=== PATIENT | male | born 1975 | race African-American/Black ===

== ENCOUNTER 2017-12-28 21:15 | Inpatient (IN) | payer MEDICAID, OTHER, SELFPAY ==
[~2017-12-28] VITALS: Ht 167.6 cm; Wt 81.6 kg
[~2017-12-28 21:15] MED LIST: CYCLOBENZAPRINE10 MG ORAL; IBUPROFEN600 MG ORAL; NKM
--- NOTE | 2017-12-28 21:35 | Emergency Room Report ---
History of Present Illness General Chief Complaint: Nausea, Vomiting, and Diarrhea Source: Patient Present Illness HPI Patient presents with abdominal pain which is left lower quadrant vomiting with loose stools. This began at 2 PM today. The pain is 7/10 and constant. He might have vomited little bit of blood. He's been on very unusual diets with fasting. For 3 days he's had weakness and headaches. Today the headache was worse. He feels it in his left eye and has minimal change in vision. His never had a headache like this before. No cough, sore throat. No rashes. Denies alcohol use, stones. Fast was sabianism based. No depression.. Allergies: Coded Allergies: PENICILLINS (Unverified Allergy, Unknown, 06/24/14) Patient History Past Medical History: see triage record Social History: Reports: drug use - THC Social History Narrative Reviewed Nursing Documentation: PMH: Agreed, PSxH: Agreed Nursing Documentation-PMH Past Medical History: No Stated History Review of Systems All Other Systems: negative except mentioned in HPI Physical Exam Vital Signs Date Time Temp Pulse Resp B/P (MAP) Pulse Ox O2 Delivery O2 Flow Rate FiO2 12/28/17 21:18 98.1 58 14 143/86 100 Room Air Sp02 EP Interpretation: reviewed, normal General Appearance: GCS 15, mild distress Head: normocephalic Eyes: bilateral eye PERRL, bilateral eye Scleral Injection ENT: moist mucus membranes Neck: supple Respiratory: lungs clear, normal breath sounds Cardiovascular #1: regular rate, rhythm Cardiovascular #2: 2+ radial (R) Gastrointestinal: normal inspection, normal bowel sounds, no mass, non- distended, no guarding, no rebound, tenderness - Left lower quadrant Genitourinary: no CVA tenderness Musculoskeletal: back normal, gait/station normal, normal range of motion Neurologic: alert, oriented x3, 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 DDx: migraine, dehydration, diverticulitis, gastritis, pancreatitis amongst others. Evaluation with labs, CXR, abd film. Treatment with IV hydration, analgesia and pepcid. Labs with elevated lipase. Rest unremarkable. Improved with treatment, however, still with pain. ROLAND better. Patient admitted medical, Dr. Smith. Laboratory Tests Test 12/28/17 21:29 12/28/17 22:08 White Blood Count 6.2 K/UL (4.8-10.8) Red Blood Count 4.56 M/UL (4.70-6.10) L Hemoglobin 14.6 G/DL (14.2-18.0) Hematocrit 43.6 % (42.0-52.0) Mean Corpuscular Volume 96 FL (80-99) Mean Corpuscular Hemoglobin 31.9 PG (27.0-31.0) H Mean Corpuscular Hemoglobin Concent 33.4 G/DL (32.0-36.0) Red Cell Distribution Width 10.9 % (11.6-14.8) L Platelet Count 247 K/UL (150-450) Mean Platelet Volume 8.3 FL (6.5-10.1) Neutrophils (%) (Auto) 40.9 % (45.0-75.0) L Lymphocytes (%) (Auto) 35.0 % (20.0-45.0) Monocytes (%) (Auto) 10.8 % (1.0-10.0) H Eosinophils (%) (Auto) 11.6 % (0.0-3.0) H Basophils (%) (Auto) 1.7 % (0.0-2.0) Prothrombin Time 10.1 SEC (9.30-11.50) Prothrombin Time INR 1.0 (0.9-1.1) PTT 31 SEC (23-33) Sodium Level 139 MMOL/L (136-145) Potassium Level 3.7 MMOL/L (3.5-5.1) Chloride Level 101 MMOL/L (98-107) Carbon Dioxide Level 31 MMOL/L (21-32) Anion Gap 7 mmol/L (5-15) Blood Urea Nitrogen 9 mg/dL (7-18) Creatinine 1.0 MG/DL (0.55-1.30) Estimate Glomerular Filtration Rate > 60 mL/min (>60) Glucose Level 102 MG/DL (74-106) Calcium Level 9.2 MG/DL (8.5-10.1) Total Bilirubin 0.6 MG/DL (0.2-1.0) Aspartate Amino Transferase (AST) 17 U/L (15-37) Alanine Aminotransferase (ALT) 25 U/L (12-78) Alkaline Phosphatase 86 U/L (46-116) Total Creatine Kinase 133 U/L (26-308) Total Protein 7.8 G/DL (6.4-8.2) Albumin 3.6 G/DL (3.4-5.0) Globulin 4.2 g/dL Albumin/Globulin Ratio 0.9 (1.0-2.7) L Lipase 1031 U/L (73-393) H Urine Color Yellow Urine Appearance Cloudy Urine pH 9 (4.5-8.0) Urine Specific [place] 1.015 (1.005-1.035) Urine Protein Negative (NEGATIVE) Urine Glucose (UA) Negative (NEGATIVE) Urine Ketones Negative (NEGATIVE) Urine Occult Blood Negative (NEGATIVE) Urine Nitrite Negative (NEGATIVE) Urine Bilirubin Negative (NEGATIVE) Urine Urobilinogen 1 MG/DL (0.0-1.0) H Urine Leukocyte Esterase 1+ (NEGATIVE) H Urine RBC 0-2 /HPF (0 - 0) H Urine WBC 0-2 /HPF (0 - 0) Urine Squamous Epithelial Cells None /LPF (NONE/OCC) Urine Amorphous Sediment Many /LPF (NONE) H Urine Bacteria Moderate /HPF (NONE) H Urine Opiates Screen Negative (NEGATIVE) Urine Barbiturates Screen Negative (NEGATIVE) Phencyclidine (PCP) Screen Negative (NEGATIVE) Urine Amphetamines Screen Negative (NEGATIVE) Urine Benzodiazepines Screen Negative (NEGATIVE) Urine Cocaine Screen Negative (NEGATIVE) Urine Marijuana (THC) Screen Positive (NEGATIVE) H Rhythm Strip Diag. Results Rhythm: NSR, no PVC's, no ectopy Chest X-Ray Diagnostic Results Chest X-Ray Diagnostic Results : Chest X-Ray Ordered: Yes # of Views/Limited/Complete: 1 View Indication: Other Interpretation: no consolidation, no effusion, no pneumothorax Impression: No acute disease Electronically Signed by: Petros Cherry MD Other X-Ray Diagnostic Results Other X-Ray Diagnostic Results : X-Ray ordered: abdomen # of Views/Limited Vs Complete: 1 View Indication: Pain Interpretation: nonspecific bowel gas, no sbo, other - no calcifications Impression: Other Electronically Signed by: Petros Cherry MD CT/MRI/US Diagnostic Results CT/MRI/US Diagnostic Results : Imaging Test Ordered: u/s Impression prominent pancreas, slight dilatation of CBD, no stones Last Vital Signs Date Time Temp Pulse Resp B/P (MAP) Pulse Ox O2 Delivery O2 Flow Rate FiO2 12/28/17 21:18 98.1 58 14 143/86 100 Room Air Status: improved Disposition: ADMITTED INPATIENT Condition: Serious Petros Cherry M.D. Dec 28, 2017 21:35
[2017-12-28 21:36] VITALS: BP 134/95
[2017-12-28] MEDS ORDERED: Morphine Sulfate 4mg/ml Inj IVP ONE (21:45)
[2017-12-28 22:03] LABS: BASOPHILS % (AUTO) 1.7 % (0.0-2.0); EOSINOPHILS % (AUTO) 11.6 % (0.0-3.0); HEMATOCRIT 43.6 % (42.0-52.0); HEMOGLOBIN 14.6 G/DL (14.2-18.0); MEAN CORPUSCULAR VOLUME 96 FL (80-99); MONOCYTES % (AUTO) 10.8 % (1.0-10.0); NEUTROPHILS % (AUTO) 40.9 % (45.0-75.0); PLATELET COUNT 247 K/UL (150-450); RED BLOOD COUNT 4.56 M/UL (4.70-6.10); RED CELL DISTRIBUTION WIDTH 10.9 % (11.6-14.8); WHITE BLOOD COUNT 6.2 K/UL (4.8-10.8)
[2017-12-28 22:17] LABS: ANION GAP 7 mmol/L (5-15); BLOOD UREA NITROGEN 9 mg/dL (7-18); CALCIUM 9.2 MG/DL (8.5-10.1); CARBON DIOXIDE 31 MMOL/L (21-32); CHLORIDE 101 MMOL/L (98-107); POTASSIUM 3.7 MMOL/L (3.5-5.1); SODIUM 139 MMOL/L (136-145)
[2017-12-28 22:21] LABS: ALANINE AMINOTRANSFERASE 25 U/L (12-78); ALBUMIN 3.6 G/DL (3.4-5.0); ALBUMIN/GLOBULIN RATIO 0.9 (1.0-2.7); ALKALINE PHOSPHATASE 86 U/L (46-116); ASPARTATE AMINO TRANSFERASE 17 U/L (15-37); BILIRUBIN,TOTAL 0.6 MG/DL (0.2-1.0); CREATINE KINASE 133 U/L (26-308)
[2017-12-28] MEDS ORDERED: HYDROmorphone 1mg/ml Carpuject IVP ONE (22:30)
[2017-12-28 22:34] LABS: APPEARANCE,URINE CLOUDY; BILIRUBIN, URINE NEGATIVE (NEGATIVE); GLUCOSE, URINE (UA) NEGATIVE (NEGATIVE); KETONES,URINE NEGATIVE (NEGATIVE); LEUKOCYTE ESTERASE ,URINE 1+ (NEGATIVE); NITRITE,URINE NEGATIVE (NEGATIVE); PH,URINE 9 (4.5-8.0); PROTEIN,URINE NEGATIVE (NEGATIVE); UROBILINOGEN,URINE 1 MG/DL (0.0-1.0)
[2017-12-28 22:40] LABS: COLOR,URINE YELLOW
[2017-12-28 23:28] VITALS: BP 123/73
[2017-12-29] MEDS ORDERED: HYDROmorphone 1mg/ml Carpuject IVP ONE
[2017-12-29 02:01] VITALS: BP 123/81
[2017-12-29 02:26] VITALS: BP 132/81
[2017-12-29] MEDS ORDERED: Morphine Sulfate 2mg/ml Inj IVP PRN (06:45)
[2017-12-29] MEDS ORDERED: LORazepam Inj 2mg/ml 1ml IV PRN (06:45)
[2017-12-29] MEDS ORDERED: Miralax 17gm pkt ORAL PRN (06:45)
[2017-12-29] MEDS ORDERED: Mylanta II UD 30ml ORAL PRN (06:45)
[2017-12-29] MEDS ORDERED: Nitroglycerin Subl 0.4mg tab SL PRN (06:45)
[2017-12-29] MEDS: D5 1/2NS 1,000 ML IV SCH ×2 (07:29→19:34)
[2017-12-29 07:50] VITALS: BP 134/82
[2017-12-29] MEDS: Pantoprazole Inj IV SCH (09:17)
[2017-12-29] MEDS: Heparin 5000 units/ml inj SUBQ SCH ×2 (09:19→22:27)
--- NOTE | 2017-12-29 09:59 | Diagnostic Imaging Report ---
Indication:Abdominal pain Technique: Grayscale and duplex Doppler imaging of the abdomen performed. Comparison: None Findings: The liver, demonstrated part of the pancreas, gallbladder, aorta and IVC, both kidneys, spleen appear unremarkable. There is no biliary ductal dilatation identified. Doppler evaluation of the main portal vein shows patency. There is no ascites. No hydronephrosis seen. CBD 5.6 mm. Impression: No acute findings.
--- NOTE | 2017-12-29 10:36 | Diagnostic Imaging Report ---
Indication: Abdominal pain Comparison: None Single view of the abdomen obtained Findings: Bowel gas pattern is nonspecific. No mass, ectopic calcifications, or abnormal gas collections are identified. The bones are unremarkable. Impression: No acute findings
--- NOTE | 2017-12-29 10:37 | Diagnostic Imaging Report ---
Indication: Dyspnea Comparison: None A single view chest radiograph was obtained. Findings: Cardiomediastinal appearance is within normal limits for age. Pulmonary vascularity is appropriate. The diaphragmatic contour is smooth and costophrenic angles are sharp. No pleural effusions are identified. The bones are unremarkable. Impression: No acute findings
[2017-12-29] MEDS: HYDROmorphone 1mg/ml Carpuject IVP PRN ×2 (11:08→17:37)
[2017-12-29 12:25] VITALS: BP 143/65
--- NOTE | 2017-12-29 13:20 | GI Initial Consult Note ---
History of Present Illness General Date patient seen: Dec 29, 2017 Time patient seen: 11:00 Reason for Hospitalization: Nausea, Vomiting, and Diarrhea Referring physician: HAILY FARRAR Reason for Consultation: ABDOMINAL PAIN Present Illness HPI Patient presents with abdominal pain which is left lower quadrant vomiting with loose stools. This began at 2 PM today. The pain is 7/10 and constant. He might have vomited little bit of blood. He's been on very unusual diets with fasting. For 3 days he's had weakness and headaches. Today the headache was worse. He feels it in his left eye. His never had a headache like this before. GI consulted for abdominal pain. Pt seen on floor, awake A&Ox4 NAD with no active s/sx of N/V/D. Per patient, he was out shopping when he had a sudden attack of abdominal pain in which he stated he became diaphoretic and weak. The patient had to sit down, drank some water which cause the pain to exacerbate further. Denies any unintentional weight loss or changes in dietary habits. Denies any recent travels. Social drinker, MJ and tobacco user. Patient expresses min relief from morphine. C/o of sharp 7/10 epigastric /LUQ pain. Presents today with lipase over 1000. No known history of endoscopies /colonoscopies. Home Meds Active Scripts Cyclobenzaprine Hcl* (FLEXERIL*) 10 Mg Tablet, 10 MG ORAL TID Y for Muscle Spasm for 5 Days, TAB Prov:ADIA LOPEZ M.D. 12/03/14 Ibuprofen* (MOTRIN*) 600 Mg Tablet, 600 MG ORAL Q8H Y for For Pain, #30 TAB Prov:ADIA LOPEZ M.D. 12/03/14 Reported Medications No Known Medications* (NKM - No Known Medications*) ., 0 ., 0 Refills 12/02/14 Med list reviewed/reconciled: Yes Allergies: Coded Allergies: PENICILLINS (Unverified Allergy, Unknown, 06/24/14) Patient History PMH Narrative Past Medical History: see triage record Social History: Reports: drug use - [facility] Nursing Documentation-[facility] [place] Past Medical History: No Stated History Social History: Reports: smoking, alcohol use, drug use - social Review of Systems All Other Systems: negative except mentioned in HPI Physical Exam Vital Signs Date Time Temp Pulse Resp B/P (MAP) Pulse Ox O2 Delivery O2 Flow Rate FiO2 12/28/17 21:18 98.1 58 14 143/86 100 Room Air Sp02 EP Interpretation: reviewed, normal Labs Laboratory Tests Test 12/28/17 21:29 12/28/17 22:08 White Blood Count 6.2 K/UL (4.8-10.8) Red Blood Count 4.56 M/UL (4.70-6.10) L Hemoglobin 14.6 G/DL (14.2-18.0) Hematocrit 43.6 % (42.0-52.0) Mean Corpuscular Volume 96 FL (80-99) Mean Corpuscular Hemoglobin 31.9 PG (27.0-31.0) H Mean Corpuscular Hemoglobin Concent 33.4 G/DL (32.0-36.0) Red Cell Distribution Width 10.9 % (11.6-14.8) L Platelet Count 247 K/UL (150-450) Mean Platelet Volume 8.3 FL (6.5-10.1) Neutrophils (%) (Auto) 40.9 % (45.0-75.0) L Lymphocytes (%) (Auto) 35.0 % (20.0-45.0) Monocytes (%) (Auto) 10.8 % (1.0-10.0) H Eosinophils (%) (Auto) 11.6 % (0.0-3.0) H Basophils (%) (Auto) 1.7 % (0.0-2.0) Prothrombin Time 10.1 SEC (9.30-11.50) Prothromb Time International Ratio 1.0 (0.9-1.1) Activated Partial Thromboplast Time 31 SEC (23-33) Sodium Level 139 MMOL/L (136-145) Potassium Level 3.7 MMOL/L (3.5-5.1) Chloride Level 101 MMOL/L (98-107) Carbon Dioxide Level 31 MMOL/L (21-32) Anion Gap 7 mmol/L (5-15) Blood Urea Nitrogen 9 mg/dL (7-18) Creatinine 1.0 MG/DL (0.55-1.30) Estimat Glomerular Filtration Rate > 60 mL/min (>60) Glucose Level 102 MG/DL (74-106) Calcium Level 9.2 MG/DL (8.5-10.1) Total Bilirubin 0.6 MG/DL (0.2-1.0) Aspartate Amino Transf (AST/SGOT) 17 U/L (15-37) Alanine Aminotransferase (ALT/SGPT) 25 U/L (12-78) Alkaline Phosphatase 86 U/L (46-116) Total Creatine Kinase 133 U/L (26-308) Total Protein 7.8 G/DL (6.4-8.2) Albumin 3.6 G/DL (3.4-5.0) Globulin 4.2 g/dL Albumin/Globulin Ratio 0.9 (1.0-2.7) L Lipase 1031 U/L (73-393) H Urine Color Yellow Urine Appearance Cloudy Urine pH 9 (4.5-8.0) Urine Specific [place] 1.015 (1.005-1.035) Urine Protein Negative (NEGATIVE) Urine Glucose (UA) Negative (NEGATIVE) Urine Ketones Negative (NEGATIVE) Urine Occult Blood Negative (NEGATIVE) Urine Nitrite Negative (NEGATIVE) Urine Bilirubin Negative (NEGATIVE) Urine Urobilinogen 1 MG/DL (0.0-1.0) H Urine Leukocyte Esterase 1+ (NEGATIVE) H Urine RBC 0-2 /HPF (0 - 0) H Urine WBC 0-2 /HPF (0 - 0) Urine Squamous Epithelial Cells None /LPF (NONE/OCC) Urine Amorphous Sediment Many /LPF (NONE) H Urine Bacteria Moderate /HPF (NONE) H Urine Opiates Screen Negative (NEGATIVE) Urine Barbiturates Screen Negative (NEGATIVE) Phencyclidine (PCP) Screen Negative (NEGATIVE) Urine Amphetamines Screen Negative (NEGATIVE) Urine Benzodiazepines Screen Negative (NEGATIVE) Urine Cocaine Screen Negative (NEGATIVE) Urine Marijuana (THC) Screen Positive (NEGATIVE) H General Appearance: well appearing, no apparent distress, alert Head: normocephalic EENT: PERRL/EOMI, normal ENT inspection Neck: supple Respiratory: normal breath sounds, no respiratory distress Cardiovascular: normal rate Gastrointestinal: normal inspection, non tender, soft, normal bowel sounds, non -distended Rectal: deferred Genitourinary: deferred Musculoskeletal: normal inspection, back normal Neurologic: normal inspection, alert, oriented x3, responsive Psychiatric: normal inspection, judgement/insight normal, memory normal Skin: normal inspection, normal color, no rash, warm/dry, palpation normal, well hydrated Lymphatic: normal inspection, no adenopathy Current Medications Current Medications Medications (Trade) Dose Ordered Sig/Zenobia Route PRN Reason Start Time Stop Time Status Last Admin Dose Admin Acetaminophen (Tylenol) 650 mg Q4H PRN ORAL fever 12/29/17 06:45 01/28/18 06:44 Al Hydroxide/Mg Hydroxide (Mylanta II) 30 ml Q6H PRN ORAL dyspepsia 12/29/17 06:45 01/28/18 06:44 Dextrose (Dextrose 50%) STAT PRN IV Hypoglycemia 12/29/17 06:45 01/28/18 06:44 Dextrose/Sodium Chloride 1,000 ml @ 75 mls/hr [id number] IV 12/29/17 07:00 01/28/18 06:59 12/29/17 07:29 Diphenhydramine HCl (Benadryl) 25 mg Q6H PRN ORAL Itching/Pruritis 12/29/17 06:45 01/28/18 06:44 Heparin Sodium (Porcine) (Heparin 5000 units/ml) 5,000 units EVERY 12 HOURS SUBQ 12/29/17 09:00 01/28/18 08:59 12/29/17 09:19 Hydromorphone HCl (Dilaudid) 1 mg Q4H PRN IVP Moderate to Severe Pain 12/29/17 11:00 01/05/18 10:59 12/29/17 11:08 Lorazepam (Ativan 2mg/ml 1ml) 1 mg Q4H PRN IV agitation 12/29/17 06:45 01/05/18 06:44 Nitroglycerin (Ntg) 0.4 mg Q5M X 3 DOSES PRN SL Prn Chest Pain 12/29/17 06:45 01/28/18 06:44 Ondansetron HCl (Zofran) 4 mg Q6H PRN IVP Nausea & Vomiting 12/29/17 06:45 01/28/18 06:44 Pantoprazole (Protonix) 40 mg DAILY IV 12/29/17 09:00 01/28/18 08:59 12/29/17 09:17 Polyethylene Glycol (Miralax) 17 gm HSPRN PRN ORAL Constipation 12/29/17 06:45 01/28/18 06:44 Promethazine HCl (Phenergan) 25 mg Q8H PRN IV refractory nausea 12/29/17 06:45 01/28/18 06:44 Temazepam (Restoril) 15 mg HSPRN PRN ORAL Insomnia 12/29/17 06:45 01/05/18 06:44 GI: Plan Problems: (1) Pancreatitis Plan abdominal U/S and KUB >> negative symptomatic treatment CLD, adv as tolerated pain mgmt PO/IV hydration fu labs, lipase Discussed with Dr. Mobley. Thank you for this patient referral, we will follow. Radha Coto N.P. Dec 29, 2017 13:20
--- NOTE | 2017-12-29 13:22 | Consultation ---
History of Present Illness General Date patient seen: Dec 29, 2017 Chief Complaint: Nausea, Vomiting, and Diarrhea Reason for Consultation: inpatient management Present Illness HPI 42 year old male presented to [facility] [place] with CC of abdominal pain. His Lipase level were elevated. He denies any etoh use. He is admitted for intractable abdominal pain. Allergies: Coded Allergies: PENICILLINS (Unverified Allergy, Unknown, 06/24/14) Medication History Scheduled No Known Medications* (NKM - No Known Medications*), 0 ., (Reported) Scheduled PRN Cyclobenzaprine Hcl* (Flexeril*), 10 MG ORAL TID PRN for Muscle Spasm Ibuprofen* (Motrin*), 600 MG ORAL Q8H PRN for For Pain Patient History Healthcare decision maker Resuscitation status Advanced Directive on File Review of Systems Constitutional: Reports: no symptoms Eye: Reports: no symptoms ENT: Reports: no symptoms Physical Exam General Appearance: WD/WN, no apparent distress Lines, tubes and drains: peripheral, central line HEENT: normocephalic, atraumatic Neck: non-tender, normal alignment Respiratory/Chest: lungs clear, normal breath sounds Cardiovascular/Chest: normal peripheral pulses, normal rate Abdomen: normal bowel sounds Last 24 Hour Vital Signs Date Time Temp Pulse Resp B/P (MAP) Pulse Ox O2 Delivery O2 Flow Rate FiO2 12/29/17 07:50 97.9 62 18 134/82 99 Room Air 12/29/17 02:26 97.8 53 18 132/81 99 Room Air 12/29/17 02:15 98.2 88 12 123/81 100 Room Air 79 12/29/17 02:01 98.2 79 12 123/81 100 Room Air 12/29/17 00:32 98.2 12/28/17 23:28 98.2 88 26 123/73 98 Room Air 12/28/17 23:03 98.1 12/28/17 22:15 98.1 12/28/17 21:36 98.1 63 19 134/95 100 Room Air 12/28/17 21:18 98.1 58 14 143/86 100 Room Air Intake and Output 12/28/17 12/29/17 19:00 07:00 Intake Total 0 ml Balance 0 ml Intake Oral 0 ml # Voids 2 Laboratory Tests Test 12/28/17 21:29 12/28/17 22:08 White Blood Count 6.2 K/UL (4.8-10.8) Red Blood Count 4.56 M/UL (4.70-6.10) L Hemoglobin 14.6 G/DL (14.2-18.0) Hematocrit 43.6 % (42.0-52.0) Mean Corpuscular Volume 96 FL (80-99) Mean Corpuscular Hemoglobin 31.9 PG (27.0-31.0) H Mean Corpuscular Hemoglobin Concent 33.4 G/DL (32.0-36.0) Red Cell Distribution Width 10.9 % (11.6-14.8) L Platelet Count 247 K/UL (150-450) Mean Platelet Volume 8.3 FL (6.5-10.1) Neutrophils (%) (Auto) 40.9 % (45.0-75.0) L Lymphocytes (%) (Auto) 35.0 % (20.0-45.0) Monocytes (%) (Auto) 10.8 % (1.0-10.0) H Eosinophils (%) (Auto) 11.6 % (0.0-3.0) H Basophils (%) (Auto) 1.7 % (0.0-2.0) Prothrombin Time 10.1 SEC (9.30-11.50) Prothromb Time International Ratio 1.0 (0.9-1.1) Activated Partial Thromboplast Time 31 SEC (23-33) Sodium Level 139 MMOL/L (136-145) Potassium Level 3.7 MMOL/L (3.5-5.1) Chloride Level 101 MMOL/L (98-107) Carbon Dioxide Level 31 MMOL/L (21-32) Anion Gap 7 mmol/L (5-15) Blood Urea Nitrogen 9 mg/dL (7-18) Creatinine 1.0 MG/DL (0.55-1.30) Estimat Glomerular Filtration Rate > 60 mL/min (>60) Glucose Level 102 MG/DL (74-106) Calcium Level 9.2 MG/DL (8.5-10.1) Total Bilirubin 0.6 MG/DL (0.2-1.0) Aspartate Amino Transf (AST/SGOT) 17 U/L (15-37) Alanine Aminotransferase (ALT/SGPT) 25 U/L (12-78) Alkaline Phosphatase 86 U/L (46-116) Total Creatine Kinase 133 U/L (26-308) Total Protein 7.8 G/DL (6.4-8.2) Albumin 3.6 G/DL (3.4-5.0) Globulin 4.2 g/dL Albumin/Globulin Ratio 0.9 (1.0-2.7) L Lipase 1031 U/L (73-393) H Urine Color Yellow Urine Appearance Cloudy Urine pH 9 (4.5-8.0) Urine Specific [place] 1.015 (1.005-1.035) Urine Protein Negative (NEGATIVE) Urine Glucose (UA) Negative (NEGATIVE) Urine Ketones Negative (NEGATIVE) Urine Occult Blood Negative (NEGATIVE) Urine Nitrite Negative (NEGATIVE) Urine Bilirubin Negative (NEGATIVE) Urine Urobilinogen 1 MG/DL (0.0-1.0) H Urine Leukocyte Esterase 1+ (NEGATIVE) H Urine RBC 0-2 /HPF (0 - 0) H Urine WBC 0-2 /HPF (0 - 0) Urine Squamous Epithelial Cells None /LPF (NONE/OCC) Urine Amorphous Sediment Many /LPF (NONE) H Urine Bacteria Moderate /HPF (NONE) H Urine Opiates Screen Negative (NEGATIVE) Urine Barbiturates Screen Negative (NEGATIVE) Phencyclidine (PCP) Screen Negative (NEGATIVE) Urine Amphetamines Screen Negative (NEGATIVE) Urine Benzodiazepines Screen Negative (NEGATIVE) Urine Cocaine Screen Negative (NEGATIVE) Urine Marijuana (THC) Screen Positive (NEGATIVE) H Height (Feet): 5 Height (Inches): 6.00 Weight (Pounds): 180 Medications Current Medications Medications (Trade) Dose Ordered Sig/Zenobia Route PRN Reason Start Time Stop Time Status Last Admin Dose Admin Acetaminophen (Tylenol) 650 mg Q4H PRN ORAL fever 12/29/17 06:45 01/28/18 06:44 Al Hydroxide/Mg Hydroxide (Mylanta II) 30 ml Q6H PRN ORAL dyspepsia 12/29/17 06:45 01/28/18 06:44 Dextrose (Dextrose 50%) STAT PRN IV Hypoglycemia 12/29/17 06:45 01/28/18 06:44 Dextrose/Sodium Chloride 1,000 ml @ 75 mls/hr [id number] IV 12/29/17 07:00 01/28/18 06:59 12/29/17 07:29 Diphenhydramine HCl (Benadryl) 25 mg Q6H PRN ORAL Itching/Pruritis 12/29/17 06:45 01/28/18 06:44 Heparin Sodium (Porcine) (Heparin 5000 units/ml) 5,000 units EVERY 12 HOURS SUBQ 12/29/17 09:00 01/28/18 08:59 12/29/17 09:19 Hydromorphone HCl (Dilaudid) 1 mg Q4H PRN IVP Moderate to Severe Pain 12/29/17 11:00 01/05/18 10:59 12/29/17 11:08 Lorazepam (Ativan 2mg/ml 1ml) 1 mg Q4H PRN IV agitation 12/29/17 06:45 01/05/18 06:44 Nitroglycerin (Ntg) 0.4 mg Q5M X 3 DOSES PRN SL Prn Chest Pain 12/29/17 06:45 01/28/18 06:44 Ondansetron HCl (Zofran) 4 mg Q6H PRN IVP Nausea & Vomiting 12/29/17 06:45 01/28/18 06:44 Pantoprazole (Protonix) 40 mg DAILY IV 12/29/17 09:00 01/28/18 08:59 12/29/17 09:17 Polyethylene Glycol (Miralax) 17 gm HSPRN PRN ORAL Constipation 12/29/17 06:45 01/28/18 06:44 Promethazine HCl (Phenergan) 25 mg Q8H PRN IV refractory nausea 12/29/17 06:45 01/28/18 06:44 Temazepam (Restoril) 15 mg HSPRN PRN ORAL Insomnia 12/29/17 06:45 01/05/18 06:44 Assessment/Plan Problem List: (1) Pancreatitis ICD Codes: K85.90 - Acute pancreatitis without necrosis or infection, unspecified SNOMED: 82393075 Assessment/Plan npo IV fluids GI evaluation symptomatic treatment f/u lipase level. AGGIE ZAMORA Dec 29, 2017 13:21
[2017-12-29 16:36] VITALS: BP 127/79
[2017-12-29 20:00] VITALS: BP 134/77
--- NOTE | 2017-12-29 20:45 | Consultation ---
DATE OF CONSULTATION: 12/29/2017 INFECTIOUS DISEASE CONSULTATION CONSULTING PHYSICIAN: Patricio Reynolds M.D. PRIMARY ATTENDING PHYSICIAN: Dale Smith D.O. REASON FOR CONSULTATION: Pancreatitis. HISTORY OF PRESENT ILLNESS: This is a 42-year-old, male, admitted today complaining of abdominal pain, left lower quadrant pain, loose stool, was found to have elevated lipase. The patient does not have history of alcohol abuse. No fever. No chills. Currently abdominal pain is resolved. PAST MEDICAL HISTORY: ALLERGIES: To penicillin. MEDICATIONS: Hydromorphone, heparin, Protonix, Tylenol, MiraLAX, Zofran, temazepam, diphenhydramine, nitroglycerin, Mylanta, promethazine. SOCIAL HISTORY: Single. Denies alcohol, drug abuse. Smokes weed. REVIEW OF SYSTEMS: Currently have no pain. No fever. No chills. No runny nose. He has occasional coughing. No nausea. No vomiting. Feels hungry. No problem passing urine. PHYSICAL EXAMINATION: VITAL SIGNS: Temperature 97.7, pulse 77, blood pressure 143/65. GENERAL APPEARANCE: The patient is well-developed muscular. HEENT: Head and neck, pink conjunctivae. No oral lesion. HEART: S1 and S2. Regular. LUNGS: Clear. ABDOMEN: Soft, nontender. No mass. EXTREMITIES: No edema. SKIN: Skin tattoos. No ulcer. LABORATORY DATA: Sodium 139, potassium 3.7, chloride 101, bicarb 31, creatinine 1. LFT and bilirubin are normal. Lipase is 1031. WBC 6.2, hemoglobin 14.6, hematocrit 43.6, platelets 247. Chest x-ray was negative. Abdominal ultrasound was negative. IMPRESSION: 1. Acute pancreatitis. 2. Penicillin allergy. RECOMMENDATIONS: 1. Observe off antibiotic. 2. Plan by GI doctor. At the end of my exam, I thank Dr. Dale Smith, for involving me in the care of this patient. Patricio Reynolds M.D. DR: Von JOB#: [id number] CC: CEASAR
--- NOTE | 2017-12-29 21:45 | History and Physical Report ---
DATE OF ADMISSION: 12/29/2017 TIME: 1 p.m. ATTENDING PHYSICIAN: Dale Smith D.O. CONSULTANTS: 1. Jose Mobley M.D. 2. Andrea Buitrago M.D. CHIEF COMPLAINT: Nausea, vomiting, abdominal pain, and pancreatitis. BRIEF HISTORY: The patient is a 42-year-old male who lives at home, presents with one-day history of nausea, vomiting, and abdominal pain, increased. The patient came to [place], diagnosed with pancreatitis, admitted to medical floor for further treatment. Currently, tolerating clear liquids and pain medications has helped his abdominal pain and nausea somewhat subsided. PAST MEDICAL HISTORY: Nothing. PAST SURGICAL HISTORY: None. MEDICATIONS: Dilaudid, heparin, Protonix, Tylenol, MiraLAX, Zofran, Restoril, Benadryl, nitroglycerin, Mylanta, Phenergan with codeine, and Ativan. ALLERGIES: Penicillin. SOCIAL HISTORY: Positive smoke. No alcohol. No intravenous drug abuse. FAMILY HISTORY: Noncontributory. REVIEW OF SYSTEMS: No chest pain. Slight short of breath. Slight nausea and vomiting. No diarrhea. PHYSICAL EXAMINATION: GENERAL: Calm in bed, oriented x3, in no acute distress. VITAL SIGNS: Temperature 97 degrees, pulse 62, respirations 18, and blood pressure 134/82. CARDIOVASCULAR: No murmur. LUNGS: Distant and clear. ABDOMEN: Bowel sounds positive. Slightly tender. No guarding. No rigidity. No rebound. EXTREMITIES: No cyanosis, clubbing or edema. NEUROLOGIC: Cranial nerves II through XII are grossly intact. Deep tendon reflexes 2+/4. Muscle strength is 5/5. LABORATORY AND DIAGNOSTIC DATA: CBC is normal. BMP shows lipase 1031 and albumin 0.9, otherwise, BMP is normal. INR is 1.0 and PTT is 31. Urine toxicology is positive for marijuana. Urinalysis show 1+ leukocyte esterase. ASSESSMENT: 1. Pancreatitis. 2. Urinary tract infection. 3. Nausea, vomiting, and abdominal pain. PLAN: 1. Continue premedications. 2. Liquid diet. 3. Zofran p.r.n. and pain medications p.r.n. 4. CBC, BMP, amylase and lipase in the morning. 5. Antibiotics per Infectious Disease. 6. Dr. Mobley, Dr. Buitrago and Dr. Cornejo to consult. 7. We will continue to follow this patient medically. Dale Smith D.O. DR: ROJAS JOB#: [id number] CC:
[2017-12-30 04:00] VITALS: BP 130/79
[2017-12-30 06:37] LABS: BASOPHILS % (AUTO) 1.1 % (0.0-2.0); EOSINOPHILS % (AUTO) 13.9 % (0.0-3.0); HEMATOCRIT 39.9 % (42.0-52.0); HEMOGLOBIN 13.7 G/DL (14.2-18.0); LYMPHOCYTES % (AUTO) 38.5 % (20.0-45.0); MEAN CORPUSCULAR VOLUME 95 FL (80-99); MONOCYTES % (AUTO) 10.9 % (1.0-10.0); NEUTROPHILS % (AUTO) 35.6 % (45.0-75.0); PLATELET COUNT 231 K/UL (150-450); RED CELL DISTRIBUTION WIDTH 10.8 % (11.6-14.8); WHITE BLOOD COUNT 4.1 K/UL (4.8-10.8)
[2017-12-30] MEDS: HYDROmorphone 1mg/ml Carpuject IVP PRN ×2 (07:08→21:51)
[2017-12-30 07:13] LABS: ALANINE AMINOTRANSFERASE 20 U/L (12-78); ALBUMIN 3.1 G/DL (3.4-5.0); ALBUMIN/GLOBULIN RATIO 0.8 (1.0-2.7); ALKALINE PHOSPHATASE 73 U/L (46-116); AMYLASE 87 U/L (25-115); ANION GAP 8 mmol/L (5-15); ASPARTATE AMINO TRANSFERASE 16 U/L (15-37); BILIRUBIN,TOTAL 0.7 MG/DL (0.2-1.0); BLOOD UREA NITROGEN 4 mg/dL (7-18); CALCIUM 8.7 MG/DL (8.5-10.1); CARBON DIOXIDE 27 MMOL/L (21-32); CHLORIDE 102 MMOL/L (98-107); CREATININE 0.9 MG/DL (0.55-1.30); POTASSIUM 3.4 MMOL/L (3.5-5.1); SODIUM 137 MMOL/L (136-145)
[2017-12-30 08:10] VITALS: BP 136/72
[2017-12-30] MEDS: Pantoprazole Inj IV SCH (08:35)
[2017-12-30] MEDS: Heparin 5000 units/ml inj SUBQ SCH ×2 (08:37→20:47)
[2017-12-30] MEDS ORDERED: Norco 5mg/325mg tab ORAL PRN (09:00)
[2017-12-30] MEDS ORDERED: D5 1/2NS 1000ml IV ONE (11:24)
[2017-12-30 12:00] VITALS: BP 128/79
--- NOTE | 2017-12-30 14:46 | Infectious Diseases Prog Note ---
Assessment/Plan Assessment/Plan A; Acute pancreatitis P; Observe off antibiotic Subjective ROS Limited/Unobtainable: No Constitutional: Reports: no symptoms Gastrointestinal/Abdominal: Reports: other - epigastric pain, started on regular diet Genitourinary: Reports: no symptoms Allergies: Coded Allergies: PENICILLINS (Unverified Allergy, Unknown, 06/24/14) Objective Vital Signs Last 24 Hour Vital Signs Date Time Temp Pulse Resp B/P (MAP) Pulse Ox O2 Delivery O2 Flow Rate FiO2 12/30/17 12:29 98.1 12/30/17 08:10 98.1 59 20 136/72 97 Room Air 12/30/17 04:00 97.8 65 17 130/79 99 Room Air 12/29/17 20:00 98.4 54 17 134/77 100 Room Air 12/29/17 17:37 98.0 12/29/17 16:36 98.0 67 20 127/79 95 Room Air Height (Feet): 5 Height (Inches): 6.00 Weight (Pounds): 180 General Appearance: no acute distress HEENT: mucous membranes moist Respiratory/Chest: lungs clear Cardiovascular: normal rate Abdomen: soft, non tender Extremities: no edema Neurologic/Psychiatric: alert, oriented x 3, responsive Microbiology Date/Time Source Procedure Growth Status 12/28/17 22:08 Urine,Clean Catch Urine Culture - Preliminary NO GROWTH Resulted Laboratory Tests Test 12/30/17 05:10 White Blood Count 4.1 K/UL (4.8-10.8) L Red Blood Count 4.20 M/UL (4.70-6.10) L Hemoglobin 13.7 G/DL (14.2-18.0) L Hematocrit 39.9 % (42.0-52.0) L Mean Corpuscular Volume 95 FL (80-99) Mean Corpuscular Hemoglobin 32.6 PG (27.0-31.0) H Mean Corpuscular Hemoglobin Concent 34.3 G/DL (32.0-36.0) Red Cell Distribution Width 10.8 % (11.6-14.8) L Platelet Count 231 K/UL (150-450) Mean Platelet Volume 7.9 FL (6.5-10.1) Neutrophils (%) (Auto) 35.6 % (45.0-75.0) L Lymphocytes (%) (Auto) 38.5 % (20.0-45.0) Monocytes (%) (Auto) 10.9 % (1.0-10.0) H Eosinophils (%) (Auto) 13.9 % (0.0-3.0) H Basophils (%) (Auto) 1.1 % (0.0-2.0) Activated Partial Thromboplast Time 32 SEC (23-33) Sodium Level 137 MMOL/L (136-145) Potassium Level 3.4 MMOL/L (3.5-5.1) L Chloride Level 102 MMOL/L (98-107) Carbon Dioxide Level 27 MMOL/L (21-32) Anion Gap 8 mmol/L (5-15) Blood Urea Nitrogen 4 mg/dL (7-18) L Creatinine 0.9 MG/DL (0.55-1.30) Estimat Glomerular Filtration Rate > 60 mL/min (>60) Glucose Level 92 MG/DL (74-106) Calcium Level 8.7 MG/DL (8.5-10.1) Total Bilirubin 0.7 MG/DL (0.2-1.0) Aspartate Amino Transf (AST/SGOT) 16 U/L (15-37) Alanine Aminotransferase (ALT/SGPT) 20 U/L (12-78) Alkaline Phosphatase 73 U/L (46-116) Total Protein 7.0 G/DL (6.4-8.2) Albumin 3.1 G/DL (3.4-5.0) L Globulin 3.9 g/dL Albumin/Globulin Ratio 0.8 (1.0-2.7) L Amylase Level 87 U/L (25-115) Lipase 209 U/L (73-393) Current Medications Medications (Trade) Dose Ordered Sig/Zenobia Route PRN Reason Start Time Stop Time Status Last Admin Dose Admin Acetaminophen (Tylenol) 650 mg Q4H PRN ORAL Mild Pain (Pain Scale 1-3)/FEV 12/30/17 10:15 01/29/18 10:14 Acetaminophen/ Hydrocodone Bitart (Thorn[place] 5/325) 1 tab Q6H PRN ORAL Moderate Pain (Pain Scale 4-6) 12/30/17 09:00 01/06/18 08:59 12/30/17 12:29 Al Hydroxide/Mg Hydroxide (Mylanta II) 30 ml Q6H PRN ORAL dyspepsia 12/29/17 06:45 01/28/18 06:44 Dextrose (Dextrose 50%) STAT PRN IV Hypoglycemia 12/29/17 06:45 01/28/18 06:44 Dextrose/Sodium Chloride 1,000 ml @ 75 mls/hr [id number] IV 12/29/17 07:00 01/28/18 06:59 12/29/17 19:34 Diphenhydramine HCl (Benadryl) 25 mg Q6H PRN ORAL Itching/Pruritis 12/29/17 06:45 01/28/18 06:44 Heparin Sodium (Porcine) (Heparin 5000 units/ml) 5,000 units EVERY 12 HOURS SUBQ 12/29/17 09:00 01/28/18 08:59 12/30/17 08:37 Hydromorphone HCl (Dilaudid) 1 mg Q4H PRN IVP Severe Pain (Pain Scale 7-10) 12/30/17 10:15 01/06/18 10:14 Lorazepam (Ativan 2mg/ml 1ml) 1 mg Q4H PRN IV agitation 12/29/17 06:45 01/05/18 06:44 Nitroglycerin (Ntg) 0.4 mg Q5M X 3 DOSES PRN SL Prn Chest Pain 12/29/17 06:45 01/28/18 06:44 Ondansetron HCl (Zofran) 4 mg Q6H PRN IVP Nausea & Vomiting 12/29/17 06:45 01/28/18 06:44 12/30/17 08:35 Pantoprazole (Protonix) 40 mg DAILY IV 12/29/17 09:00 01/28/18 08:59 12/30/17 08:35 Polyethylene Glycol (Miralax) 17 gm HSPRN PRN ORAL Constipation 12/29/17 06:45 01/28/18 06:44 Promethazine HCl (Phenergan) 25 mg Q8H PRN IV refractory nausea 12/29/17 06:45 01/28/18 06:44 Temazepam (Restoril) 15 mg HSPRN PRN ORAL Insomnia 12/29/17 06:45 01/05/18 06:44 SELENA ECHOLS Dec 30, 2017 14:46
--- NOTE | 2017-12-30 14:56 | GI Progress Note ---
Assessment/Plan Problems: (1) Marijuana use ICD Codes: F12.90 - Cannabis use, unspecified, uncomplicated SNOMED: 878121760 (2) Pancreatitis ICD Codes: K85.90 - Acute pancreatitis without necrosis or infection, unspecified SNOMED: 88845778 Qualifiers: Qualified Codes: K85.90 - Acute pancreatitis without necrosis or infection, unspecified Status: stable Status Narrative Discussed with Dr. Mobley. Assessment/Plan abdominal U/S and KUB >> negative utox >> marijuana, possible cause of pancreatitis elevated lipase >> now normal okay for DC per GI standpoint if patient tolerates food symptomatic treatment adv to regular diet pain mgmt PO/IV hydration fu labs Subjective Subjective LUQ pain Objective Last 24 Hour Vital Signs Date Time Temp Pulse Resp B/P (MAP) Pulse Ox O2 Delivery O2 Flow Rate FiO2 12/30/17 12:29 98.1 12/30/17 08:10 98.1 59 20 136/72 97 Room Air 12/30/17 04:00 97.8 65 17 130/79 99 Room Air 12/29/17 20:00 98.4 54 17 134/77 100 Room Air 12/29/17 17:37 98.0 12/29/17 16:36 98.0 67 20 127/79 95 Room Air Intake and Output 12/29/17 12/30/17 19:00 07:00 Intake Total 75 ml 675 ml Balance 75 ml 675 ml IV Total 75 ml 675 ml # Voids 3 4 Laboratory Tests Test 12/30/17 05:10 White Blood Count 4.1 K/UL (4.8-10.8) L Red Blood Count 4.20 M/UL (4.70-6.10) L Hemoglobin 13.7 G/DL (14.2-18.0) L Hematocrit 39.9 % (42.0-52.0) L Mean Corpuscular Volume 95 FL (80-99) Mean Corpuscular Hemoglobin 32.6 PG (27.0-31.0) H Mean Corpuscular Hemoglobin Concent 34.3 G/DL (32.0-36.0) Red Cell Distribution Width 10.8 % (11.6-14.8) L Platelet Count 231 K/UL (150-450) Mean Platelet Volume 7.9 FL (6.5-10.1) Neutrophils (%) (Auto) 35.6 % (45.0-75.0) L Lymphocytes (%) (Auto) 38.5 % (20.0-45.0) Monocytes (%) (Auto) 10.9 % (1.0-10.0) H Eosinophils (%) (Auto) 13.9 % (0.0-3.0) H Basophils (%) (Auto) 1.1 % (0.0-2.0) Activated Partial Thromboplast Time 32 SEC (23-33) Sodium Level 137 MMOL/L (136-145) Potassium Level 3.4 MMOL/L (3.5-5.1) L Chloride Level 102 MMOL/L (98-107) Carbon Dioxide Level 27 MMOL/L (21-32) Anion Gap 8 mmol/L (5-15) Blood Urea Nitrogen 4 mg/dL (7-18) L Creatinine 0.9 MG/DL (0.55-1.30) Estimat Glomerular Filtration Rate > 60 mL/min (>60) Glucose Level 92 MG/DL (74-106) Calcium Level 8.7 MG/DL (8.5-10.1) Total Bilirubin 0.7 MG/DL (0.2-1.0) Aspartate Amino Transf (AST/SGOT) 16 U/L (15-37) Alanine Aminotransferase (ALT/SGPT) 20 U/L (12-78) Alkaline Phosphatase 73 U/L (46-116) Total Protein 7.0 G/DL (6.4-8.2) Albumin 3.1 G/DL (3.4-5.0) L Globulin 3.9 g/dL Albumin/Globulin Ratio 0.8 (1.0-2.7) L Amylase Level 87 U/L (25-115) Lipase 209 U/L (73-393) Height (Feet): 5 Height (Inches): 6.00 Weight (Pounds): 180 General Appearance: WD/WN, no apparent distress, alert Cardiovascular: normal rate Respiratory/Chest: normal breath sounds, no respiratory distress Abdominal Exam: normal bowel sounds, non tender, soft Extremities: normal range of motion, non-tender Radha Coto N.P. Dec 30, 2017 14:56
--- NOTE | 2017-12-30 15:01 | General Progress Note ---
Assessment/Plan Problem List: (1) Dehydration ICD Codes: E86.0 - Dehydration SNOMED: 21603937 (2) Headache ICD Codes: R51 - Headache SNOMED: 68054238 Qualifiers: Qualified Codes: R51 - Headache (3) Pancreatitis ICD Codes: K85.90 - Acute pancreatitis without necrosis or infection, unspecified SNOMED: 01112680 Qualifiers: Qualified Codes: K85.90 - Acute pancreatitis without necrosis or infection, unspecified (4) UTI (urinary tract infection) ICD Codes: N39.0 - Urinary tract infection, site not specified SNOMED: 82650884 (5) Nausea ICD Codes: R11.0 - Nausea SNOMED: 237938247 Status: unchanged Assessment/Plan diet per gi ivf pain control cbc bmp am Subjective Constitutional: Reports: weakness Gastrointestinal/Abdominal: Reports: abdominal pain, nausea Allergies: Coded Allergies: PENICILLINS (Unverified Allergy, Unknown, 06/24/14) All Systems: reviewed and negative except above Objective Last 24 Hour Vital Signs Date Time Temp Pulse Resp B/P (MAP) Pulse Ox O2 Delivery O2 Flow Rate FiO2 12/30/17 12:29 98.1 12/30/17 08:10 98.1 59 20 136/72 97 Room Air 12/30/17 04:00 97.8 65 17 130/79 99 Room Air 12/29/17 20:00 98.4 54 17 134/77 100 Room Air 12/29/17 17:37 98.0 12/29/17 16:36 98.0 67 20 127/79 95 Room Air Intake and Output 12/29/17 12/30/17 19:00 07:00 Intake Total 75 ml 675 ml Balance 75 ml 675 ml IV Total 75 ml 675 ml # Voids 3 4 Laboratory Tests 12/30/17 05:10: White Blood Count 4.1L, Red Blood Count 4.20L, Hemoglobin 13.7L, Hematocrit 39.9L, Mean Corpuscular Volume 95, Mean Corpuscular Hemoglobin 32.6H, Mean Corpuscular Hemoglobin Concent 34.3, Red Cell Distribution Width 10.8L, Platelet Count 231, Mean Platelet Volume 7.9, Neutrophils (%) (Auto) 35.6L, Lymphocytes (%) (Auto) 38.5, Monocytes (%) (Auto) 10.9H, Eosinophils (%) (Auto) 13.9H, Basophils (%) (Auto) 1.1, Activated Partial Thromboplast Time 32, Sodium Level 137, Potassium Level 3.4L, Chloride Level 102, Carbon Dioxide Level 27, Anion Gap 8, Blood Urea Nitrogen 4L, Creatinine 0.9, Estimat Glomerular Filtration Rate > 60, Glucose Level 92, Calcium Level 8.7, Total Bilirubin 0.7, Aspartate Amino Transf (AST/SGOT) 16, Alanine Aminotransferase (ALT/SGPT) 20, Alkaline Phosphatase 73, Total Protein 7.0, Albumin 3.1L, Globulin 3.9, Albumin/ Globulin Ratio 0.8L, Amylase Level 87, Lipase 209 Height (Feet): 5 Height (Inches): 6.00 Weight (Pounds): 180 General Appearance: alert EENT: normal ENT inspection Neck: normal alignment Cardiovascular: normal peripheral pulses, normal rate, regular rhythm Respiratory/Chest: chest wall non-tender, lungs clear, normal breath sounds Abdomen: normal bowel sounds, non tender, soft Extremities: normal inspection Edema: no edema noted Arm (L), no edema noted Arm (R), no edema noted Leg (L), no edema noted Leg (R), no edema noted Pedal (L), no edema noted Pedal (R), no edema noted Generalized Neurologic: responsive, motor weakness Skin: normal pigmentation, warm/dry HAILY FARRAR Dec 30, 2017 15:01
--- NOTE | 2017-12-30 17:33 | Pulmonology Progress Note ---
Assessment/Plan Problems: (1) Pancreatitis Assessment/Plan SYMPTOMATIC TREATMENT iv fluids f/u gi recommendations. Subjective ROS Limited/Unobtainable: No Constitutional: Reports: no symptoms HEENT: Repors: no symptoms Respiratory: Reports: no symptoms Allergies: Coded Allergies: PENICILLINS (Unverified Allergy, Unknown, 06/24/14) Objective Last 24 Hour Vital Signs Date Time Temp Pulse Resp B/P (MAP) Pulse Ox O2 Delivery O2 Flow Rate FiO2 12/30/17 17:00 98.1 12/30/17 13:25 98.1 12/30/17 12:29 98.1 12/30/17 08:10 98.1 59 20 136/72 97 Room Air 12/30/17 04:00 97.8 65 17 130/79 99 Room Air 12/29/17 20:00 98.4 54 17 134/77 100 Room Air 12/29/17 17:37 98.0 Intake and Output 12/29/17 12/30/17 19:00 07:00 Intake Total 75 ml 675 ml Balance 75 ml 675 ml IV Total 75 ml 675 ml # Voids 3 4 General Appearance: WD/WN HEENT: normocephalic, atraumatic Respiratory/Chest: chest wall non-tender, lungs clear Cardiovascular: normal peripheral pulses, normal rate Abdomen: normal bowel sounds, non distended Genitourinary: normal external genitalia Extremities: no clubbing Skin: no ulcers 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 Microbiology Date/Time Source Procedure Growth Status 12/28/17 22:08 Urine,Clean Catch Urine Culture - Preliminary NO GROWTH Resulted Laboratory Tests 12/30/17 05:10: White Blood Count 4.1L, Red Blood Count 4.20L, Hemoglobin 13.7L, Hematocrit 39.9L, Mean Corpuscular Volume 95, Mean Corpuscular Hemoglobin 32.6H, Mean Corpuscular Hemoglobin Concent 34.3, Red Cell Distribution Width 10.8L, Platelet Count 231, Mean Platelet Volume 7.9, Neutrophils (%) (Auto) 35.6L, Lymphocytes (%) (Auto) 38.5, Monocytes (%) (Auto) 10.9H, Eosinophils (%) (Auto) 13.9H, Basophils (%) (Auto) 1.1, Activated Partial Thromboplast Time 32, Sodium Level 137, Potassium Level 3.4L, Chloride Level 102, Carbon Dioxide Level 27, Anion Gap 8, Blood Urea Nitrogen 4L, Creatinine 0.9, Estimat Glomerular Filtration Rate > 60, Glucose Level 92, Calcium Level 8.7, Total Bilirubin 0.7, Aspartate Amino Transf (AST/SGOT) 16, Alanine Aminotransferase (ALT/SGPT) 20, Alkaline Phosphatase 73, Total Protein 7.0, Albumin 3.1L, Globulin 3.9, Albumin/ Globulin Ratio 0.8L, Amylase Level 87, Lipase 209 Current Medications Medications (Trade) Dose Ordered Sig/Zenobia Route PRN Reason Start Time Stop Time Status Last Admin Dose Admin Acetaminophen (Tylenol) 650 mg Q4H PRN ORAL Mild Pain (Pain Scale 1-3)/FEV 12/30/17 10:15 01/29/18 10:14 12/30/17 17:00 Acetaminophen/ Hydrocodone Bitart (Victor 5/325) 1 tab Q6H PRN ORAL Moderate Pain (Pain Scale 4-6) 12/30/17 09:00 01/06/18 08:59 12/30/17 12:29 Al Hydroxide/Mg Hydroxide (Mylanta II) 30 ml Q6H PRN ORAL dyspepsia 12/29/17 06:45 01/28/18 06:44 Dextrose (Dextrose 50%) STAT PRN IV Hypoglycemia 12/29/17 06:45 01/28/18 06:44 Dextrose/Sodium Chloride 1,000 ml @ 75 mls/hr [id number] IV 12/29/17 07:00 01/28/18 06:59 12/29/17 19:34 Diphenhydramine HCl (Benadryl) 25 mg Q6H PRN ORAL Itching/Pruritis 12/29/17 06:45 01/28/18 06:44 Heparin Sodium (Porcine) (Heparin 5000 units/ml) 5,000 units EVERY 12 HOURS SUBQ 12/29/17 09:00 01/28/18 08:59 12/30/17 08:37 Hydromorphone HCl (Dilaudid) 1 mg Q4H PRN IVP Severe Pain (Pain Scale 7-10) 12/30/17 10:15 01/06/18 10:14 Lorazepam (Ativan 2mg/ml 1ml) 1 mg Q4H PRN IV agitation 12/29/17 06:45 01/05/18 06:44 Nitroglycerin (Ntg) 0.4 mg Q5M X 3 DOSES PRN SL Prn Chest Pain 12/29/17 06:45 01/28/18 06:44 Ondansetron HCl (Zofran) 4 mg Q6H PRN IVP Nausea & Vomiting 12/29/17 06:45 01/28/18 06:44 12/30/17 08:35 Pantoprazole (Protonix) 40 mg DAILY IV 12/29/17 09:00 01/28/18 08:59 12/30/17 08:35 Polyethylene Glycol (Miralax) 17 gm HSPRN PRN ORAL Constipation 12/29/17 06:45 01/28/18 06:44 Promethazine HCl (Phenergan) 25 mg Q8H PRN IV refractory nausea 12/29/17 06:45 01/28/18 06:44 Temazepam (Restoril) 15 mg HSPRN PRN ORAL Insomnia 12/29/17 06:45 01/05/18 06:44 AGGIE ZAMORA Dec 30, 2017 17:33
[2017-12-30 20:16] VITALS: BP 148/62
[2017-12-30] MEDS: D5 1/2NS 1,000 ML IV SCH ×2 (21:05→23:00)
[2017-12-31 00:10] VITALS: BP 114/58
[2017-12-31 04:07] VITALS: BP 131/60
[2017-12-31 07:55] VITALS: BP 140/88
[2017-12-31] MEDS: Pantoprazole Inj IV SCH (07:57)
[2017-12-31] MEDS: HYDROmorphone 1mg/ml Carpuject IVP PRN (07:57)
[2017-12-31 07:59] LABS: ANION GAP 3 mmol/L (5-15); BLOOD UREA NITROGEN 6 mg/dL (7-18); CALCIUM 8.9 MG/DL (8.5-10.1); CARBON DIOXIDE 32 MMOL/L (21-32); CHLORIDE 104 MMOL/L (98-107); CREATININE 1.1 MG/DL (0.55-1.30); SODIUM 139 MMOL/L (136-145)
[2017-12-31] MEDS: Heparin 5000 units/ml inj SUBQ SCH ×2 (08:04→21:15)
[2017-12-31 08:22] LABS: BASOPHILS % (AUTO) 1.3 % (0.0-2.0); EOSINOPHILS % (AUTO) 12.9 % (0.0-3.0); HEMATOCRIT 40.2 % (42.0-52.0); HEMOGLOBIN 13.6 G/DL (14.2-18.0); LYMPHOCYTES % (AUTO) 39.5 % (20.0-45.0); MEAN CORPUSCULAR VOLUME 95 FL (80-99); NEUTROPHILS % (AUTO) 33.2 % (45.0-75.0); PLATELET COUNT 249 K/UL (150-450); RED BLOOD COUNT 4.23 M/UL (4.70-6.10); RED CELL DISTRIBUTION WIDTH 10.7 % (11.6-14.8); WHITE BLOOD COUNT 4.6 K/UL (4.8-10.8)
[2017-12-31] MEDS: D5 1/2NS 1,000 ML IV SCH ×2 (09:34→22:47)
--- NOTE | 2017-12-31 11:42 | Diagnostic Imaging Report ---
Indication: Back pain Comparison: None Findings: 3 views of the sacrum and coccyx were obtained. Findings: No acute fracture is identified. The sacroiliac joints are unremarkable. Sacral ala appear symmetric. There is some obscuring due to overlying bowel gas and stool. Impression: No acute injury identified.
--- NOTE | 2017-12-31 11:42 | Diagnostic Imaging Report ---
Indication: Headache. Head trauma Technique: Contiguous 5 mm thick transaxial imaging of the head obtained in a Siemens Sensation [address] scanner. Soft tissue and bone windows generated. Automatic Exposure Control was utilized. Total Dose length Product (DLP): 1414.[address] Dose Index Volume (CTDIvol): 70.38 mGy Comparison: none Findings: The size and configuration of the cortical sulci, basal cisterns, and ventricles are within normal limits for age. There is no mass effect, midline shift, or edema identified. There is no evidence of acute hemorrhage or abnormal intra-axial or extra-axial fluid collections. The bones and soft tissues are unremarkable. Mucosal thickening demonstrated within the paranasal sinuses. Impression: No mass effect, edema or acute bleed. The CT scanner at [facility] is accredited by the [employer] and the scans are performed using dose optimization techniques as appropriate to a performed exam including Automatic Exposure control.
--- NOTE | 2017-12-31 12:06 | GI Progress Note ---
Assessment/Plan Problems: (1) Marijuana use ICD Codes: F12.90 - Cannabis use, unspecified, uncomplicated SNOMED: 949415509 (2) Pancreatitis ICD Codes: K85.90 - Acute pancreatitis without necrosis or infection, unspecified SNOMED: 79472727 Qualifiers: Qualified Codes: K85.90 - Acute pancreatitis without necrosis or infection, unspecified (3) Malingerer ICD Codes: Z76.5 - Malingerer [conscious simulation] SNOMED: 160116266 Status: stable Status Narrative Discussed with Dr. Mobley. Assessment/Plan abdominal U/S and KUB >> negative utox >> marijuana, possible cause of pancreatitis elevated lipase >> now normal ?self induced vomiting okay for DC per GI standpoint symptomatic treatment adv to regular diet pain mgmt PO/IV hydration fu labs Subjective Subjective LUQ pain Objective Last 24 Hour Vital Signs Date Time Temp Pulse Resp B/P (MAP) Pulse Ox O2 Delivery O2 Flow Rate FiO2 12/31/17 08:27 98.6 12/31/17 08:08 Room Air 12/31/17 08:00 Room Air 12/31/17 07:57 98.6 12/31/17 07:55 Room Air 12/31/17 07:55 98.2 100 20 140/88 98 12/31/17 04:07 98.6 59 18 131/60 98 12/31/17 00:10 98.3 53 16 114/58 98 12/30/17 20:16 98.5 58 20 148/62 99 12/30/17 17:00 98.1 12/30/17 13:25 98.1 12/30/17 12:29 98.1 Intake and Output 12/30/17 12/31/17 19:00 07:00 Intake Total 450 ml 585 ml Balance 450 ml 585 ml Intake Oral 360 ml IV Total 450 ml 225 ml # Voids 4 3 Laboratory Tests Test 12/31/17 06:50 White Blood Count 4.6 K/UL (4.8-10.8) L Red Blood Count 4.23 M/UL (4.70-6.10) L Hemoglobin 13.6 G/DL (14.2-18.0) L Hematocrit 40.2 % (42.0-52.0) L Mean Corpuscular Volume 95 FL (80-99) Mean Corpuscular Hemoglobin 32.1 PG (27.0-31.0) H Mean Corpuscular Hemoglobin Concent 33.7 G/DL (32.0-36.0) Red Cell Distribution Width 10.7 % (11.6-14.8) L Platelet Count 249 K/UL (150-450) Mean Platelet Volume 7.5 FL (6.5-10.1) Neutrophils (%) (Auto) 33.2 % (45.0-75.0) L Lymphocytes (%) (Auto) 39.5 % (20.0-45.0) Monocytes (%) (Auto) 13.0 % (1.0-10.0) H Eosinophils (%) (Auto) 12.9 % (0.0-3.0) H Basophils (%) (Auto) 1.3 % (0.0-2.0) Sodium Level 139 MMOL/L (136-145) Potassium Level 4.0 MMOL/L (3.5-5.1) Chloride Level 104 MMOL/L (98-107) Carbon Dioxide Level 32 MMOL/L (21-32) Anion Gap 3 mmol/L (5-15) L Blood Urea Nitrogen 6 mg/dL (7-18) L Creatinine 1.1 MG/DL (0.55-1.30) Estimat Glomerular Filtration Rate > 60 mL/min (>60) Glucose Level 95 MG/DL (74-106) Calcium Level 8.9 MG/DL (8.5-10.1) Height (Feet): 5 Height (Inches): 6.00 Weight (Pounds): 180 General Appearance: WD/WN, no apparent distress, alert Cardiovascular: normal rate Respiratory/Chest: normal breath sounds, no respiratory distress Abdominal Exam: normal bowel sounds, non tender, soft Extremities: normal range of motion, non-tender Radha Coto N.P. Dec 31, 2017 12:06
--- NOTE | 2017-12-31 12:12 | General Progress Note ---
Assessment/Plan Problem List: (1) Dehydration ICD Codes: E86.0 - Dehydration SNOMED: 09107249 (2) Headache ICD Codes: R51 - Headache SNOMED: 81576032 Qualifiers: Qualified Codes: R51 - Headache (3) Pancreatitis ICD Codes: K85.90 - Acute pancreatitis without necrosis or infection, unspecified SNOMED: 28666537 Qualifiers: Qualified Codes: K85.90 - Acute pancreatitis without necrosis or infection, unspecified (4) UTI (urinary tract infection) ICD Codes: N39.0 - Urinary tract infection, site not specified SNOMED: 17901856 (5) Nausea ICD Codes: R11.0 - Nausea SNOMED: 233976128 Status: unchanged Assessment/Plan diet per gi ivf pain control cbc bmp am Subjective Constitutional: Reports: weakness Gastrointestinal/Abdominal: Reports: vomiting Allergies: Coded Allergies: PENICILLINS (Unverified Allergy, Unknown, 06/24/14) All Systems: reviewed and negative except above Objective Last 24 Hour Vital Signs Date Time Temp Pulse Resp B/P (MAP) Pulse Ox O2 Delivery O2 Flow Rate FiO2 12/31/17 08:27 98.6 12/31/17 08:08 Room Air 12/31/17 08:00 Room Air 12/31/17 07:57 98.6 12/31/17 07:55 Room Air 12/31/17 07:55 98.2 100 20 140/88 98 12/31/17 04:07 98.6 59 18 131/60 98 12/31/17 00:10 98.3 53 16 114/58 98 12/30/17 20:16 98.5 58 20 148/62 99 12/30/17 17:00 98.1 12/30/17 13:25 98.1 12/30/17 12:29 98.1 Intake and Output 12/30/17 12/31/17 19:00 07:00 Intake Total 450 ml 585 ml Balance 450 ml 585 ml Intake Oral 360 ml IV Total 450 ml 225 ml # Voids 4 3 Laboratory Tests 12/31/17 06:50: White Blood Count 4.6L, Red Blood Count 4.23L, Hemoglobin 13.6L, Hematocrit 40.2L, Mean Corpuscular Volume 95, Mean Corpuscular Hemoglobin 32.1H, Mean Corpuscular Hemoglobin Concent 33.7, Red Cell Distribution Width 10.7L, Platelet Count 249, Mean Platelet Volume 7.5, Neutrophils (%) (Auto) 33.2L, Lymphocytes (%) (Auto) 39.5, Monocytes (%) (Auto) 13.0H, Eosinophils (%) (Auto) 12.9H, Basophils (%) (Auto) 1.3, Sodium Level 139, Potassium Level 4.0, Chloride Level 104, Carbon Dioxide Level 32, Anion Gap 3L, Blood Urea Nitrogen 6L, Creatinine 1.1, Estimat Glomerular Filtration Rate > 60, Glucose Level 95, Calcium Level 8.9 Height (Feet): 5 Height (Inches): 6.00 Weight (Pounds): 180 General Appearance: lethargic EENT: normal ENT inspection Neck: non-tender Cardiovascular: normal peripheral pulses, normal rate, regular rhythm Respiratory/Chest: chest wall non-tender, lungs clear, normal breath sounds Abdomen: normal bowel sounds, soft Extremities: normal inspection Edema: no edema noted Arm (L), no edema noted Arm (R), no edema noted Leg (L), no edema noted Leg (R), no edema noted Pedal (L), no edema noted Pedal (R), no edema noted Generalized Neurologic: responsive, motor weakness Skin: normal pigmentation, warm/dry HAILY FARRAR Dec 31, 2017 12:12
[2017-12-31 13:06] VITALS: BP 128/66
[2017-12-31 16:47] VITALS: BP 137/79
[2017-12-31 20:00] VITALS: BP 139/84
[2018-01-01] VITALS: BP 124/74
[2018-01-01 04:00] VITALS: BP 123/82
[2018-01-01 07:31] LABS: BASOPHILS % (AUTO) 1.8 % (0.0-2.0); EOSINOPHILS % (AUTO) 14.7 % (0.0-3.0); HEMATOCRIT 42.4 % (42.0-52.0); HEMOGLOBIN 14.3 G/DL (14.2-18.0); LYMPHOCYTES % (AUTO) 35.6 % (20.0-45.0); MEAN CORPUSCULAR VOLUME 95 FL (80-99); MONOCYTES % (AUTO) 11.4 % (1.0-10.0); NEUTROPHILS % (AUTO) 36.5 % (45.0-75.0); PLATELET COUNT 292 K/UL (150-450); RED BLOOD COUNT 4.47 M/UL (4.70-6.10); RED CELL DISTRIBUTION WIDTH 10.6 % (11.6-14.8); WHITE BLOOD COUNT 5.6 K/UL (4.8-10.8)
[2018-01-01 07:45] LABS: ANION GAP 6 mmol/L (5-15); BLOOD UREA NITROGEN 7 mg/dL (7-18); CALCIUM 9.1 MG/DL (8.5-10.1); CARBON DIOXIDE 30 MMOL/L (21-32); CHLORIDE 101 MMOL/L (98-107); POTASSIUM 3.3 MMOL/L (3.5-5.1); SODIUM 137 MMOL/L (136-145)
[2018-01-01 08:00] VITALS: BP 142/87
--- NOTE | 2018-01-01 08:29 | Pulmonology Progress Note ---
Assessment/Plan Assessment/Plan ASSESSMENT Pancreatitis dehydration malingerer marijuana user hypokalemia PLAN OF CARE [facility] floor IVF GI follows lipase down to normal urine cx negative urine tox screen + marijuana, poss cause of pancreatitis ID follows observe off abx Abdominal US, KUB negative symptomatic treatment diet advanced as tolerated, -howard to tolerate pain, n/v/ a/emetic prn Pain management DVT GI prophylaxis ? fall CT head and X ray sacral coccyx -negative dc plan for this am replace K prro to dc case discussed and evaluated by supervising physician Subjective Allergies: Coded Allergies: PENICILLINS (Unverified Allergy, Unknown, 06/24/14) Subjective no abdominal pain, no n/v/ tolerated diet labs and VSS K-3.3 Objective Last 24 Hour Vital Signs Date Time Temp Pulse Resp B/P (MAP) Pulse Ox O2 Delivery O2 Flow Rate FiO2 01/01/18 04:00 98.2 70 17 123/82 100 01/01/18 04:00 Room Air 01/01/18 00:00 98.0 66 18 124/74 98 01/01/18 00:00 Room Air 12/31/17 20:00 98.5 65 18 139/84 99 12/31/17 20:00 Room Air 12/31/17 16:47 98.5 59 21 137/79 99 Room Air 59 12/31/17 13:06 98.3 55 20 128/66 98 12/31/17 13:05 Room Air Intake and Output 12/31/17 01/01/18 19:00 07:00 Intake Total 1102.5 ml 875 ml Output Total 800 ml 425 ml Balance 302.5 ml 450 ml Intake Oral 240 ml IV Total 862.5 ml 875 ml Output Urine Total 800 ml 425 ml # Voids 2 4 # Bowel Movements 1 General Appearance: no acute distress HEENT: normocephalic, atraumatic, anicteric, mucous membranes moist Respiratory/Chest: lungs clear, no respiratory distress, no accessory muscle use Cardiovascular: normal rate, regular rhythm, no JVD Abdomen: normal bowel sounds, soft, non tender, non distended Extremities: no edema, pedal pulses normal Skin: other - multiple tattoos all over the body Neurologic/Psychiatric: alert, oriented x 3, responsive Musculoskeletal: normal muscle bulk Laboratory Tests 01/01/18 07:05: White Blood Count 5.6, Red Blood Count 4.47L, Hemoglobin 14.3, Hematocrit 42.4, Mean Corpuscular Volume 95, Mean Corpuscular Hemoglobin 32.0H, Mean Corpuscular Hemoglobin Concent 33.8, Red Cell Distribution Width 10.6L, Platelet Count 292, Mean Platelet Volume 7.3, Neutrophils (%) (Auto) 36.5L, Lymphocytes (%) (Auto) 35.6, Monocytes (%) (Auto) 11.4H, Eosinophils (%) (Auto) 14.7H, Basophils (%) ( Auto) 1.8, Sodium Level 137, Potassium Level 3.3L, Chloride Level 101, Carbon Dioxide Level 30, Anion Gap 6, Blood Urea Nitrogen 7, Creatinine 1.0, Estimat Glomerular Filtration Rate > 60, Glucose Level 105, Calcium Level 9.1 Current Medications Medications (Trade) Dose Ordered Sig/[place] Route PRN Reason Start Time Stop Time Status Last Admin Dose Admin Acetaminophen (Tylenol) 650 mg Q4H PRN ORAL Mild Pain (Pain Scale 1-3)/FEV 12/30/17 10:15 01/29/18 10:14 12/30/17 17:00 Acetaminophen/ Hydrocodone Bitart ([place] 5/325) 1 tab Q6H PRN ORAL Moderate Pain (Pain Scale 4-6) 12/30/17 09:00 01/06/18 08:59 12/30/17 12:29 Al Hydroxide/Mg Hydroxide (Mylanta II) 30 ml Q6H PRN ORAL dyspepsia 12/29/17 06:45 01/28/18 06:44 Dextrose (Dextrose 50%) STAT PRN IV Hypoglycemia 12/29/17 06:45 01/28/18 06:44 Dextrose/Sodium Chloride 1,000 ml @ 75 mls/hr [id number] IV 12/29/17 07:00 01/28/18 06:59 12/31/17 22:47 Diphenhydramine HCl (Benadryl) 25 mg Q6H PRN ORAL Itching/Pruritis 12/29/17 06:45 01/28/18 06:44 Heparin Sodium (Porcine) (Heparin 5000 units/ml) 5,000 units EVERY 12 HOURS SUBQ 12/29/17 09:00 01/28/18 08:59 12/31/17 21:15 Hydromorphone HCl (Dilaudid) 1 mg Q4H PRN IVP Severe Pain (Pain Scale 7-10) 12/31/17 15:00 01/07/18 14:59 Lorazepam (Ativan 2mg/ml 1ml) 1 mg Q4H PRN IV agitation 12/29/17 06:45 01/05/18 06:44 Nitroglycerin (Ntg) 0.4 mg Q5M X 3 DOSES PRN SL Prn Chest Pain 12/29/17 06:45 01/28/18 06:44 Ondansetron HCl (Zofran) 4 mg Q6H PRN IVP Nausea & Vomiting 12/29/17 06:45 01/28/18 06:44 12/30/17 18:38 Pantoprazole (Protonix) 40 mg DAILY IV 12/29/17 09:00 01/28/18 08:59 12/31/17 07:57 Polyethylene Glycol (Miralax) 17 gm HSPRN PRN ORAL Constipation 12/29/17 06:45 01/28/18 06:44 Promethazine HCl (Phenergan) 25 mg Q8H PRN IV refractory nausea 12/29/17 06:45 01/28/18 06:44 12/31/17 07:50 Temazepam (Restoril) 15 mg HSPRN PRN ORAL Insomnia 12/29/17 06:45 01/05/18 06:44 [facility]uckerBert[facility]af[facility] HospitalFranca Erazo NP Jan 01, 2018 08:29
[2018-01-01] MEDS: Pantoprazole Inj IV SCH (08:43)
[2018-01-01] MEDS: Heparin 5000 units/ml inj SUBQ SCH (08:44)
[2018-01-01] MEDS ORDERED: D5 1/2NS 1000ml IV ONE (09:29)
--- NOTE | 2018-01-01 10:31 | GI Progress Note ---
Assessment/Plan Problems: (1) Marijuana use ICD Codes: F12.90 - Cannabis use, unspecified, uncomplicated SNOMED: 790801918 (2) Pancreatitis ICD Codes: K85.90 - Acute pancreatitis without necrosis or infection, unspecified SNOMED: 61961702 Qualifiers: Qualified Codes: K85.90 - Acute pancreatitis without necrosis or infection, unspecified (3) Malingerer ICD Codes: Z76.5 - Malingerer [conscious simulation] SNOMED: 018828486 Status: stable Status Narrative Discussed with Dr. Mobley. Assessment/Plan abdominal U/S and KUB >> negative utox >> marijuana, possible cause of pancreatitis elevated lipase >> now normal ?self induced vomiting okay for DC per GI standpoint symptomatic treatment adv to regular diet pain mgmt PO/IV hydration fu labs Subjective Subjective LUQ pain Objective Last 24 Hour Vital Signs Date Time Temp Pulse Resp B/P (MAP) Pulse Ox O2 Delivery O2 Flow Rate FiO2 01/01/18 08:00 98.4 91 20 142/87 97 01/01/18 04:00 98.2 70 17 123/82 100 01/01/18 04:00 Room Air 01/01/18 00:00 98.0 66 18 124/74 98 01/01/18 00:00 Room Air 12/31/17 20:00 98.5 65 18 139/84 99 12/31/17 20:00 Room Air 12/31/17 16:47 98.5 59 21 137/79 99 Room Air 59 12/31/17 13:06 98.3 55 20 128/66 98 12/31/17 13:05 Room Air Intake and Output 12/31/17 01/01/18 19:00 07:00 Intake Total 1102.5 ml 875 ml Output Total 800 ml 425 ml Balance 302.5 ml 450 ml Intake Oral 240 ml IV Total 862.5 ml 875 ml Output Urine Total 800 ml 425 ml # Voids 2 4 # Bowel Movements 1 Laboratory Tests Test 01/01/18 07:05 White Blood Count 5.6 K/UL (4.8-10.8) Red Blood Count 4.47 M/UL (4.70-6.10) L Hemoglobin 14.3 G/DL (14.2-18.0) Hematocrit 42.4 % (42.0-52.0) Mean Corpuscular Volume 95 FL (80-99) Mean Corpuscular Hemoglobin 32.0 PG (27.0-31.0) H Mean Corpuscular Hemoglobin Concent 33.8 G/DL (32.0-36.0) Red Cell Distribution Width 10.6 % (11.6-14.8) L Platelet Count 292 K/UL (150-450) Mean Platelet Volume 7.3 FL (6.5-10.1) Neutrophils (%) (Auto) 36.5 % (45.0-75.0) L Lymphocytes (%) (Auto) 35.6 % (20.0-45.0) Monocytes (%) (Auto) 11.4 % (1.0-10.0) H Eosinophils (%) (Auto) 14.7 % (0.0-3.0) H Basophils (%) (Auto) 1.8 % (0.0-2.0) Sodium Level 137 MMOL/L (136-145) Potassium Level 3.3 MMOL/L (3.5-5.1) L Chloride Level 101 MMOL/L (98-107) Carbon Dioxide Level 30 MMOL/L (21-32) Anion Gap 6 mmol/L (5-15) Blood Urea Nitrogen 7 mg/dL (7-18) Creatinine 1.0 MG/DL (0.55-1.30) Estimat Glomerular Filtration Rate > 60 mL/min (>60) Glucose Level 105 MG/DL (74-106) Calcium Level 9.1 MG/DL (8.5-10.1) Height (Feet): 5 Height (Inches): 6.00 Weight (Pounds): 180 General Appearance: WD/WN, no apparent distress, alert Cardiovascular: normal rate Respiratory/Chest: normal breath sounds, no respiratory distress Abdominal Exam: normal bowel sounds, non tender, soft Extremities: normal range of motion, non-tender Radha Coto N.P. Jan 01, 2018 10:30
--- NOTE | 2018-01-02 10:48 | Discharge Summary ---
Discharge Summary Hospital Course Date of Admission Dec 29, 2017 at 00:17 Date of Discharge Jan 01, 2018 at 09:30 Admitting Diagnosis pancreatitis HPI Herrera Amaya is a 42 year old male who was admitted on Dec 29, 2017 at 00:17 for Pancreatitis Hospital Course [id number] Discharge Discharge Disposition Patient was discharged to Home (01) Discharge Diagnoses: Aggie Almaraz NP Jan 02, 2018 10:48
--- NOTE | 2018-01-02 22:45 | Discharge Summary 2 SIG ---
DATE OF ADMISSION: 12/29/2017 DATE OF DISCHARGE: 01/01/2018 CONSULTANTS: 1. Jose Mobley M.D. 2. Andrea Buitrago M.D. 3. Patricio Reynolds M.D. BRIEF HOSPITAL COURSE: The patient is a 42-year-old male, who lives at home, presented with one-day history of nausea, vomiting, and abdominal pain. He presented to [facility]. On evaluation, he was noted to have elevated lipase 1031, rest of the blood work was unremarkable. He was given IV hydration, analgesia, and Pepcid. He was admitted for acute pancreatitis. He was observed off antibiotic treatment. He was initially placed on NPO. Abdominal ultrasound showed no acute findings. KUB was likewise unremarkable. He was started on clear liquid diet. Urine toxicology showed marijuana. Lipase eventually normalized. Diet was advanced. He had episodes of vomiting, possible self induced. He was given potassium replacement. X-ray of the sacral and coccyx were negative and head CT showed no acute bleed. He was eventually discharged home. FINAL DIAGNOSES: 1. Acute pancreatitis. 2. Dehydration. 3. Hypokalemia. 4. Marijuana use. 5. Malingerer. 6. Headaches. DISPOSITION: The patient was discharged home. DISCHARGE INSTRUCTIONS: Follow up with PCP. He was advised against marijuana use. Dale Smith D.O. I have been assigned to dictate discharge summary on this account and I was not involved in the patient's management. Aggie Almaraz N.P. DR: EUNICE JOB#: [id number] CC: CEASAR
== END 2018-01-01 09:30 | disposition home or self-care (01) | DRG 282 ==
LOC: EMR 21:49 → 3E 12-29 00:17 → EDBEDREQ 12-29 00:41 → 3E 12-29 03:19
DX: K85.90 Acute pancreatitis without necrosis or infection, unspecified (principal); N39.0 Urinary tract infection, site not specified; E86.0 Dehydration; E87.6 Hypokalemia; F12.90 Cannabis use, unspecified, uncomplicated; Z76.5 Malingerer [conscious simulation]; R51 Headache; Z88.0 Allergy status to penicillin
CPT/HCPCS: 36415; 70450; 71045; 72220; 74018; 76700; 80048; 80053; 80307; 81003; 82150; 82550; 83690; 85025; 85610; 85730; 87086; 99285; J2405

== ENCOUNTER 2018-07-28 22:19 | Emergency (ER) | payer OTHER ==
[~2018-07-28] VITALS: Ht 170.2 cm; Wt 81.6 kg
[2018-07-28 22:26] VITALS: BP 113/72
[2018-07-28] MEDS ORDERED: Lidocaine 1% 10mg/ml/Epi 0.005mg/ml 30ml vial INJ ONE ×2 (23:11→23:15)
[2018-07-28] MEDS ORDERED: DOXYCYCLINE MO100 MG ORAL (23:40)
[2018-07-28] MEDS ORDERED: IBUPROFEN600 MG ORAL (23:40)
--- NOTE | 2018-07-28 23:50 | Emergency Room Report ---
History of Present Illness General Chief Complaint: Skin Rash/Abscess Source: Patient Present Illness HPI Patient is a 43-year-old male who presented after increased swelling and skin rash. Patient gradual onset of symptoms. Patient reports having increased pain to his chest for approximately 4 days. The patient had noticed initially a small this nodule. This had increased in size. He denies any fever or chills. He had not been taking any antibiotics recently. He is penicillin allergic. Allergies: Coded Allergies: PENICILLINS (Unverified Allergy, Unknown, 06/24/14) Patient History Past Medical History: see triage record Reviewed Nursing Documentation: PMH: Agreed; PSxH: Agreed Nursing Documentation-PMH Hx Cardiac Problems: No Hx Cancer: No Hx Gastrointestinal Problems: Yes - Pancreatitis Hx Neurological Problems: No Review of Systems All Other Systems: negative except mentioned in HPI Physical Exam Vital Signs Date Time Temp Pulse Resp B/P (MAP) Pulse Ox O2 Delivery O2 Flow Rate FiO2 07/28/18 22:26 97.9 69 20 113/72 96 Room Air 97.9 General Appearance: well appearing, no apparent distress, alert, GCS 15 Head: normocephalic, atraumatic ENT: hearing grossly normal, normal voice Neck: full range of motion, supple Respiratory: no respiratory distress, speaking full sentences Musculoskeletal: no calf tenderness Neurologic: normal inspection, alert, oriented x3, responsive, union representative III-XII nml as tested, normal gait Psychiatric: normal inspection, mood/affect normal Skin: other - fluctuance to chest wall, Procedures Incision and Drainage Incision and Drainage : Consent: Written Site: chest wall Blade Size: 11 I & D Procedure: betadine prep, sterile drapes applied Wound Location: chest Wound's Depth, Shape: superficial Wound Length (cm): 0 Wound Explored: clean Anesthesia: Lidocaine w/ Epi Volume Anesthetic (ccs): 4 Patient Tolerated: Well Complications: None Medical Decision Making Diagnostic Impression: Primary Impression: Abscess ER Course Patient presented for skin rash. Differential diagnosis included was not limited to abscess, cellulitis, folliculitis. The patient had apparent abscess. Patient was consented for incision and drainage. Abscess was drained with the large amount purulent material. Patient was given prescription for doxycycline.The patient is advised to follow up with primary care doctor in 1- 2 days for wound check.. Patient is advised to return if any worsening condition or if any changes in status that are concerning. This report is dictated with Dragon load test mechanic software which may occasionally lead to discrepancies related to use of this software. Last Vital Signs Date Time Temp Pulse Resp B/P (MAP) Pulse Ox O2 Delivery O2 Flow Rate FiO2 07/28/18 22:26 208.2 78 20 113/72 96 Room Air 208.2 Status: improved Disposition: HOME, SELF-CARE Condition: Stable Scripts Ibuprofen* (MOTRIN*) 600 Mg Tablet 600 MG ORAL Q8H PRN for For Pain, #30 TAB 0 Refills Prov: Manpreet Cameron MD 07/28/18 Doxycycline Monohydrate* (DOXYCYCLINE MONOHYDRATE*) 100 Mg Capsule 100 MG ORAL TWICE A DAY, #14 CAP 0 Refills Prov: Manpreet Cameron MD 07/28/18 Patient Instructions: Manpreet Guido MD Jul 28, 2018 23:50
[2018-07-28 23:55] VITALS: BP 124/72
== END 2018-07-28 23:55 | disposition home or self-care (01) ==
LOC: EMR 23:00
DX: L02.213 Cutaneous abscess of chest wall (principal); Z88.0 Allergy status to penicillin
CPT/HCPCS: 10060; 99283

== ENCOUNTER 2019-05-27 12:46 | Emergency (ER) | payer OTHER ==
[~2019-05-27] VITALS: Ht 172.7 cm; Wt 84.4 kg
[~2019-05-27 12:46] MED LIST changes: +DOXYCYCLINE MO100 MG ORAL
[2019-05-27 13:02] VITALS: BP 134/82
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
[2019-05-27] MEDS ORDERED: Isovue-300 100ml vial INJ PRN (13:30)
[2019-05-27] MEDS ORDERED: Ketorolac 30mg Inj IV ONE (13:30)
[2019-05-27 13:49] LABS: BASOPHILS % (AUTO) 1.2 % (0.0-2.0); EOSINOPHILS % (AUTO) 1.9 % (0.0-3.0); HEMATOCRIT 42.4 % (42.0-52.0); HEMOGLOBIN 13.9 G/DL (14.2-18.0); LYMPHOCYTES % (AUTO) 16.3 % (20.0-45.0); MEAN CORPUSCULAR VOLUME 96 FL (80-99); MONOCYTES % (AUTO) 8.6 % (1.0-10.0); PLATELET COUNT 194 K/UL (150-450); RED BLOOD COUNT 4.43 M/UL (4.70-6.10); RED CELL DISTRIBUTION WIDTH 10.9 % (11.6-14.8); WHITE BLOOD COUNT 7.1 K/UL (4.8-10.8)
[2019-05-27 14:04] LABS: ANION GAP 8 mmol/L (5-15); BLOOD UREA NITROGEN 9 mg/dL (7-18); CALCIUM 9.4 MG/DL (8.5-10.1); CARBON DIOXIDE 26 MMOL/L (21-32); CHLORIDE 105 MMOL/L (98-107); POTASSIUM 3.8 MMOL/L (3.5-5.1); SODIUM 139 MMOL/L (136-145)
[2019-05-27 14:08] LABS: ALANINE AMINOTRANSFERASE 26 U/L (12-78); ALBUMIN 3.8 G/DL (3.4-5.0); ALKALINE PHOSPHATASE 80 U/L (46-116); ASPARTATE AMINO TRANSFERASE 24 U/L (15-37); BILIRUBIN,TOTAL 0.6 MG/DL (0.2-1.0)
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
[2019-05-27 15:10] VITALS: BP 129/70
--- NOTE | 2019-05-27 15:11 | Diagnostic Imaging Report ---
Indications: Left hip pain Findings: Two views of the left hip were obtained. No acute fracture is demonstrated. Alignment of the hip is within normal limits. Soft tissues are unremarkable. Impression: Negative for acute injury.
--- NOTE | 2019-05-27 15:12 | Diagnostic Imaging Report ---
Indication: Chest pain and trauma Comparison: 12/28/2017 A single view chest radiograph was obtained. Findings: Cardiomediastinal appearance is within normal limits for age. The lungs are clear. Pulmonary vascularity is appropriate. The diaphragmatic contour is smooth and costophrenic angles are sharp. No pleural effusions are identified. The bones are unremarkable. Impression: No acute findings
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
[2019-05-27] MEDS ORDERED: NORCO 5-325 TA1 EACH ORAL (15:32)
[2019-05-27] MEDS ORDERED: ROBAXIN-750750 MG PO (15:32)
[2019-05-27] MEDS ORDERED: LIDODERM700 M1 TOPIC (15:32)
[2019-05-27] MEDS ORDERED: IBUPROFEN600 MG ORAL (15:32)
[2019-05-27 15:48] VITALS: BP 129/70
--- NOTE | 2019-05-27 15:48 | NUR ---
ER DISCHARGE NOTE: Patient is cleared to be discharged per ERMD, pt is aox4, on room air, with stable vital signs. pt was given dc and prescription instructions, pt was able to verbalize understanding, pt id band and iv site removed without complications. pt is able to ambulate with steady gait. pt took all belongings.
== END 2019-05-27 15:47 | disposition home or self-care (01) ==
LOC: EMR 15:47
DX: R07.9 Chest pain, unspecified (principal); R10.9 Unspecified abdominal pain; M25.552 Pain in left hip; Z88.0 Allergy status to penicillin; V49.40XA Driver injured in collision with unspecified motor vehicles in traffic accident, initial encounter; Y92.410 Unspecified street and highway as the place of occurrence of the external cause
CPT/HCPCS: 36415; 71045; 71260; 73502; 74177; 80053; 85025; 85610; 85730; 86850; 86900; 86901; 96374; 99284; J1885; Q9967

== ENCOUNTER 2019-06-28 19:50 | Inpatient (IN) | payer OTHER ==
[~2019-06-28] VITALS: Ht 167.6 cm; Wt 85.3 kg
[~2019-06-28 19:50] MED LIST changes: +LIDODERM700 M1 TOPIC; +NORCO 5-325 TA1 EACH ORAL; +ROBAXIN-750750 MG PO
[2019-06-28] MEDS ORDERED: Dicyclomine HCl 10mg/5ml oral soln ORAL ONE (20:15)
[2019-06-28] MEDS ORDERED: Mylanta II UD 30ml ORAL ONE (20:15)
[2019-06-28] MEDS ORDERED: Lidocaine 2% Visc 15ml soln ORAL ONE (20:15)
--- NOTE | 2019-06-28 20:15 | NUR ---
ED Nurse Note: Recieved pt from home, here with c/o abdominal/chest pain x 2 days and worsening, pt also with nausea and vomiting and has not eaten for past 24 hours due to vomiting, pt rates pain t 10/10 and appears to be very uncomfortable, pt has hx of pancreatitis, pt assisted to gowning and cardiac monitoring, iv line placed and labs drawn, will resume care as ordered and continue to closely monitor.
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
[2019-06-28 20:42] LABS: BASOPHILS % (AUTO) 1.7 % (0.0-2.0); EOSINOPHILS % (AUTO) 15.5 % (0.0-3.0); HEMATOCRIT 39.5 % (42.0-52.0); HEMOGLOBIN 13.7 G/DL (14.2-18.0); LYMPHOCYTES % (AUTO) 30.1 % (20.0-45.0); MEAN CORPUSCULAR VOLUME 91 FL (80-99); MONOCYTES % (AUTO) 11.5 % (1.0-10.0); NEUTROPHILS % (AUTO) 41.1 % (45.0-75.0); PLATELET COUNT 221 K/UL (150-450); RED BLOOD COUNT 4.33 M/UL (4.70-6.10); RED CELL DISTRIBUTION WIDTH 10.7 % (11.6-14.8); WHITE BLOOD COUNT 6.3 K/UL (4.8-10.8)
[2019-06-28] MEDS ORDERED: Morphine Sulfate 2mg/ml Inj(IV/IM USE ONLY) IVP ONE (20:45)
[2019-06-28 20:57] LABS: ANION GAP 3 mmol/L (5-15); BLOOD UREA NITROGEN 10 mg/dL (7-18); CALCIUM 8.8 MG/DL (8.5-10.1); CARBON DIOXIDE 30 MMOL/L (21-32); CHLORIDE 104 MMOL/L (98-107); CREATININE 1.1 MG/DL (0.55-1.30); POTASSIUM 3.6 MMOL/L (3.5-5.1); SODIUM 137 MMOL/L (136-145)
[2019-06-28 21:02] LABS: ALANINE AMINOTRANSFERASE 93 U/L (12-78); ALBUMIN 3.6 G/DL (3.4-5.0); ALBUMIN/GLOBULIN RATIO 0.9 (1.0-2.7); ALKALINE PHOSPHATASE 86 U/L (46-116); ASPARTATE AMINO TRANSFERASE 40 U/L (15-37); BILIRUBIN,TOTAL 0.5 MG/DL (0.2-1.0)
[2019-06-28] MEDS ORDERED: Morphine Sulfate 4mg/ml Inj (IV USE ONLY) IVP ONE (21:30)
[2019-06-28 22:00] VITALS: BP 133/83
--- NOTE | 2019-06-28 22:00 | NUR ---
ED Nurse Note: Pt continues to rest in bed quietly, meds given and not effective, MD aware and new med orders given, will re-medicate and preapare for admission, pt spouse at bedside, iv site patent with fluids infusing, pt on monitoring, will continue to closely monitor.
[2019-06-28 22:43] LABS: APPEARANCE,URINE CLEAR; BILIRUBIN, URINE NEGATIVE (NEGATIVE); COLOR,URINE PALE YELLOW; GLUCOSE, URINE (UA) NEGATIVE (NEGATIVE); KETONES,URINE NEGATIVE (NEGATIVE); LEUKOCYTE ESTERASE ,URINE NEGATIVE (NEGATIVE); NITRITE,URINE NEGATIVE (NEGATIVE); PH,URINE 7 (4.5-8.0); PROTEIN,URINE NEGATIVE (NEGATIVE); UROBILINOGEN,URINE NORMAL MG/DL (0.0-1.0)
[2019-06-28] MEDS ORDERED: cefTRIAXone 1 GM in NS 55 ML IVPB ONE (22:45)
[2019-06-28] MEDS ORDERED: Promethazine HCl 12.5 MG in NS 55 ML IV PRN (23:00)
[2019-06-28] MEDS ORDERED: LORazepam Inj 2mg/ml 1ml IV PRN (23:00)
[2019-06-28] MEDS ORDERED: Nitroglycerin Subl 0.4mg tab SL PRN (23:00)
[2019-06-28] MEDS ORDERED: HYDROcodone/Acetamin 5/325 tab ORAL PRN (23:00)
[2019-06-28] MEDS ORDERED: Metoclopramide 10mg/2ml Inj IVP PRN (23:00)
[2019-06-28] MEDS ORDERED: Miralax 17gm pkt ORAL PRN (23:00)
[2019-06-28] MEDS ORDERED: Cyclobenzaprine 10mg Tab ORAL PRN (23:00)
[2019-06-28] MEDS ORDERED: Promethazine HCl 25 MG in NS 55 ML IV PRN (23:00)
--- NOTE | 2019-06-28 23:25 | NUR ---
ED Nurse Note: Pt has room for admission, report called to CRYSTAL,RN on unit, pt states pain at 0/10, meds given effective, no cp, no sob, iv fluids infusing, antibiotics, tolerating well, no s/s of adverse reactiojn noted, pt belongings list completed and med rec, pt is being taken to unit via gurney with er-tech, nad noted during pt transport.
--- NOTE | 2019-06-29 | NUR ---
NURSE NOTES: ADMITTED PATIENT TO UNIT. RECEIVED REPORTS FROM ZEUS PRASAD. ORIENTED PT TO UNIT, PT IS AWAKE, AAOX4, FAMILY AT BEDSIDE. PT C/O 7/1O PAIN IN THE ABDOMEN AND BACK. IV ON RIGHT AC 20G IS INTACT AND PATENT, RUNNING D5 1/2 NS AT 75ML/HR. PT IS AWARE OF NPO ORDER. BED IS LOCKED AT THE LOWEST POSITION, BED ALARMS ACTIVE, SIDE RAILS UP X2, AND CALL LIGHT IS WITHIN REACH. WILL CONTINUE TO MONITOR.
[2019-06-29] MEDS: Morphine Sulfate 2mg/ml Inj(IV/IM USE ONLY) IVP PRN ×3 (00:31→09:15)
[2019-06-29] MEDS: D5 1/2NS 1,000 ML IV SCH ×2 (02:06→13:21)
[2019-06-29 04:00] VITALS: BP 133/84
[2019-06-29 07:19] LABS: ALANINE AMINOTRANSFERASE 83 U/L (12-78); ALBUMIN 3.3 G/DL (3.4-5.0); ALBUMIN/GLOBULIN RATIO 0.9 (1.0-2.7); ALKALINE PHOSPHATASE 69 U/L (46-116); AMYLASE 206 U/L (25-115); ANION GAP 5 mmol/L (5-15); ASPARTATE AMINO TRANSFERASE 34 U/L (15-37); BILIRUBIN,TOTAL 0.6 MG/DL (0.2-1.0); BLOOD UREA NITROGEN 8 mg/dL (7-18); CALCIUM 8.7 MG/DL (8.5-10.1); CARBON DIOXIDE 27 MMOL/L (21-32); CHLORIDE 107 MMOL/L (98-107); CREATININE 1.1 MG/DL (0.55-1.30); POTASSIUM 3.9 MMOL/L (3.5-5.1); SODIUM 139 MMOL/L (136-145)
[2019-06-29 07:21] LABS: BASOPHILS % (AUTO) 1.4 % (0.0-2.0); EOSINOPHILS % (AUTO) 15.7 % (0.0-3.0); HEMATOCRIT 41.7 % (42.0-52.0); HEMOGLOBIN 13.7 G/DL (14.2-18.0); LYMPHOCYTES % (AUTO) 28.5 % (20.0-45.0); MEAN CORPUSCULAR VOLUME 96 FL (80-99); MONOCYTES % (AUTO) 10.6 % (1.0-10.0); NEUTROPHILS % (AUTO) 43.8 % (45.0-75.0); PLATELET COUNT 209 K/UL (150-450); RED BLOOD COUNT 4.32 M/UL (4.70-6.10); RED CELL DISTRIBUTION WIDTH 11.2 % (11.6-14.8); WHITE BLOOD COUNT 5.6 K/UL (4.8-10.8)
--- NOTE | 2019-06-29 07:47 | NUR ---
HAND-OFF: Report given to ZEUS Gonzalez.
--- NOTE | 2019-06-29 07:50 | NUR ---
NURSE NOTES: Received patient in bed, awake, alert and oriented x4. not in respiratory/cardiac distress. Fred any pain @ this time. IV intact, no s/s of infiltration and running IVF. Bed is in lowest position and locked. Call light within reach. Will continue plan of care.
[2019-06-29 08:00] VITALS: BP 130/78
[2019-06-29] MEDS: Pantoprazole Inj IV SCH (08:58)
[2019-06-29] MEDS: Heparin 5000 units/ml inj SUBQ SCH ×2 (09:00→20:30)
--- NOTE | 2019-06-29 09:10 | NUR ---
NURSE NOTES: patient asks for pain med due to pain on his back, abdomen but refused heparin SQ. RN educated on med. Patient fully understood but refused x3. Patient said "I will take it later." Denies pain on his calf, denies SOB or chest pain.
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
--- NOTE | 2019-06-29 09:32 | NUR ---
*-* NO INSURANCE INFORMATION IN THE BAR UNABLE TO SEND CLINICALS OR REVIEWS *-*
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
--- NOTE | 2019-06-29 11:14 | NUR ---
NURSE NOTES: Patient is complaining stating morphine does not work @ all. Patient is agitated and family @ the bedside. RN contacted Dr. Buitrago and received new order to give morphine 4mg IVP Q4HR PRN and d/c morphine 2mg.
[2019-06-29] MEDS ORDERED: Morphine Sulfate 4mg/ml Inj (IV USE ONLY) IVP PRN (11:15)
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
--- NOTE | 2019-06-29 11:21 | NUR ---
NURSE NOTES: Patient's mom Fawn came in and said there is family history of pancreatic cancer and she is worried. Torrey P[employer] F[employer]CE MELTER of Dr. Mobley came in and RN relayed her concern with new order to do CA 19-9 tomorrow. Torrey wants to keep the patient on NPO and no CT for now. Will continue to monitor.
[2019-06-29 12:00] VITALS: BP 139/92
--- NOTE | 2019-06-29 12:49 | Diagnostic Imaging Report ---
ABDOMINAL ULTRASOUND - COMPLETE INDICATION: Abdominal pain. Elevated LFTs TECHNIQUE: Multiplanar ultrasound examination of the abdomen with greyscale and doppler imaging. COMPARISON: Abdominal ultrasound dated 12/29/[address] abdomen pelvis dated 06/25/2014 FINDINGS: Liver: The liver is normal in size and demonstrate mildly increased echogenicity. No focal abnormalities are noted. Gallbladder: The gallbladder is normal. No stones are visualized. The wall is not thickened. There is no sonographic Dahl's sign. Common bile duct: Normal in size: Measuring 3 mm. Pancreas: There is a prominent hypoechoic structure adjacent to the expected location of the pancreatic head measuring 2.9 x 1.8 by, which is incompletely evaluated. Kidneys: The kidneys are normal in size and echogenicity. There is no hydronephrosis. Right renal cyst. Spleen: The spleen is normal in size and echogenicity. Aorta: The aorta is normal in caliber. IMPRESSION: 1. No acute sonographic findings. 2. Hypoechoic structure in the expected location of the pancreatic head which may be sequelae of history of pancreatitis, given patient's history. However, correlation with more recent cross sectional imaging or further evaluation with CT or MRI is recommended to exclude pancreatic head mass.
[2019-06-29] MEDS: Morphine Sulfate 4mg/ml Inj (IV USE ONLY) IVP PRN ×2 (13:20→17:30)
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
--- NOTE | 2019-06-29 13:21 | NUR ---
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 Reports N/V SI: Pancreatitis VS: BP: 137/93 HR: 74 RR 26 02 Sat 98% (RA) T: 98.8 NT: RBC 4.33 Hgb 13.7 Hct 39.5 Anion Gap 3 AST/SGOT 40 Alanine Aminotr 93 Lipase 1625 US Abdomen: Hypoechoic structure in the expected location of the pancreatic head which may be sequelae of history of pancreatitis IS: Zofran 4mg IVP Mylanta 30ml Oral Lidocaine 2% oral Dicyclomine 10mg Oral Morphine 2mg IVP NS 1000ml IV Pepcid 20mg IVP Morphine 4mg IVP NS 1000ml IV Admitted to MedSurg MedSurg status DCP: Pending Hospital Stay
--- NOTE | 2019-06-29 13:56 | NUR ---
NURSE NOTES: Patient claimed that he was bitten by something, (he thinks that spider bit him) on his left knee recently with swollen and itchiness, there was another bite on left lower calf near ankle that has a dry scab. Patient was seen by Dr. Sanabria with no order of antibiotic.Will continue to monitor.skin intact on bug bite near the left knee but with swollen. Will continue to monitor.
[2019-06-29] MEDS: Bactrim-DS 1 tab ORAL SCH ×2 (14:34→20:28)
[2019-06-29 16:00] VITALS: BP 136/88
--- NOTE | 2019-06-29 16:45 | History and Physical Report ---
DATE OF ADMISSION: 06/28/2019 CONSULTANTS: 1. Andrea Buitrago M.D. 2. Tate Hughes M.D. 3. Jose Mobley M.D. CHIEF COMPLAINT: Abdominal pain, nausea, vomiting, pancreatitis, and UTI. BRIEF HISTORY: This is a 44-year-old male, who lives at home, presents with on and off intermittent abdominal pain for the last 3 months, and lot worse yesterday, came in, diagnosed with the above and pancreatitis and UTI, admitted to medical floor for further treatment. Currently, slightly weak in bed. Slightly nauseous. No complaint. REVIEW OF SYSTEMS: No chest pain. No shortness of breath. Slight nausea. No vomiting or diarrhea. PAST MEDICAL HISTORY: Include pancreatitis last time was 3 months ago. PAST SURGICAL HISTORY: None. MEDICATIONS: Include , Bactrim, morphine, heparin, pantoprazole, and hydrocodone. ALLERGIES: Penicillin. SOCIAL HISTORY: Positive smoking. No alcohol. No intravenous drug abuse. FAMILY HISTORY: Noncontributory. PHYSICAL EXAMINATION: GENERAL: Calm in bed, oriented x3, in no acute distress. VITAL SIGNS: Temperature 98 degrees, pulse 63, respirations 20, and blood pressure 139/92. CARDIOVASCULAR: No murmurs. LUNGS: Distant and clear. ABDOMEN: Bowel sounds positive. Soft. No guarding. No rigidity or rebound. EXTREMITIES: Show no cyanosis or edema. NEUROLOGIC: The patient moves all extremities. LABORATORY AND DIAGNOSTIC DATA: Labs, at this time, show H and H are 13.7 and 41. BMP shows ALT 83. Albumin 3.3. Amylase 206. Lipase 663, initially was 1625. PTT is 30. Urinalysis is negative. Urine tox is positive for marijuana. ASSESSMENT: 1. Abdominal pain. 2. Nausea. 3. Vomiting. 4. Pancreatitis. PLAN: 1. Antibiotics per Infectious Disease. 2. Pain control. 3. Dietary followup. 4. NPO. 5. IV fluids. Dale Smith D.O. DR: SHY JOB#: [id number] CC:
--- NOTE | 2019-06-29 19:27 | NUR ---
HAND-OFF: Report given to Deedee.
--- NOTE | 2019-06-29 19:45 | NUR ---
NURSE NOTES: RECEIVED PT FROM ZEUS LANDON. PT IS AWAKE, UP IN BED EATING, AAO X4, ON ROOM AIR, DENIES PAIN AT THE MOMENT. PT IS TOLERATING FULL LIQUID DIET WELL. IV ON RIGHT AC IS INTACT AND PATENT. BED IS LOCKED AT THE LOWEST POSITION, BED ALARMS ACTIVE, SIDE RAILS UP X2, AND CALL LIGHT IS WITHIN REACH. WILL CONTINUE TO MONITOR.
[2019-06-29 20:00] VITALS: BP 151/89
[2019-06-30] VITALS: BP 127/86
[2019-06-30] MEDS: D5 1/2NS 1,000 ML IV SCH ×2 (01:35→15:49)
[2019-06-30 04:00] VITALS: BP 133/78
[2019-06-30 06:14] LABS: BASOPHILS % (AUTO) 1.3 % (0.0-2.0); EOSINOPHILS % (AUTO) 14.4 % (0.0-3.0); HEMOGLOBIN 14.2 G/DL (14.2-18.0); LYMPHOCYTES % (AUTO) 34.9 % (20.0-45.0); MEAN CORPUSCULAR VOLUME 96 FL (80-99); MONOCYTES % (AUTO) 11.8 % (1.0-10.0); NEUTROPHILS % (AUTO) 37.6 % (45.0-75.0); PLATELET COUNT 208 K/UL (150-450); RED BLOOD COUNT 4.49 M/UL (4.70-6.10); RED CELL DISTRIBUTION WIDTH 11.5 % (11.6-14.8); WHITE BLOOD COUNT 4.7 K/UL (4.8-10.8)
[2019-06-30 06:52] LABS: AMYLASE 175 U/L (25-115); ANION GAP 8 mmol/L (5-15); BLOOD UREA NITROGEN 6 mg/dL (7-18); CALCIUM 8.8 MG/DL (8.5-10.1); CARBON DIOXIDE 26 MMOL/L (21-32); CHLORIDE 103 MMOL/L (98-107); POTASSIUM 3.4 MMOL/L (3.5-5.1); SODIUM 137 MMOL/L (136-145)
--- NOTE | 2019-06-30 07:30 | NUR ---
HAND-OFF: Report given to ZEUS Gonzalez. Pt is in stable condition. Endorsed to TAMMY RN the plan of care.
--- NOTE | 2019-06-30 07:35 | NUR ---
NURSE NOTES: Received patient in bed, awake, alert and oriented x4. not in respiratory/cardiac distress. Denies any pain or discomfort @ this time. IV intact, no s/s of infiltration and running IVF. Bed is in lowest position and locked. Call light within reach. Will continue plan of care.
[2019-06-30 08:00] VITALS: BP 120/83
[2019-06-30] MEDS: Bactrim-DS 1 tab ORAL SCH ×2 (08:30→21:09)
[2019-06-30] MEDS: Pantoprazole Inj IV SCH (08:30)
[2019-06-30] MEDS: Heparin 5000 units/ml inj SUBQ SCH ×2 (08:31→21:10)
[2019-06-30] MEDS ORDERED: Isovue-300 100ml vial INJ PRN (09:30)
[2019-06-30] MEDS ORDERED: Gastrograffin 30ml ORAL PRN (09:30)
--- NOTE | 2019-06-30 10:02 | General Progress Note ---
Assessment/Plan Problem List: (1) Abdominal pain ICD Codes: R10.9 - Unspecified abdominal pain SNOMED: 32675939 (2) Pancreatitis ICD Codes: K85.90 - Acute pancreatitis without necrosis or infection, unspecified SNOMED: 18189029 (3) Nausea ICD Codes: R11.0 - Nausea SNOMED: 411553340 Status: stable, progressing Assessment/Plan: gi to advance diet cbc bmp am dc plan if clear Subjective Constitutional: Reports: weakness Allergies: Coded Allergies: PENICILLINS (Unverified Allergy, Unknown, 06/24/14) All Systems: reviewed and negative except above Subjective tolerating clear liquids Objective Last 24 Hour Vital Signs Date Time Temp Pulse Resp B/P (MAP) Pulse Ox O2 Delivery O2 Flow Rate FiO2 06/30/19 08:00 98.0 62 18 120/83 (95) 98 06/30/19 04:00 97.9 63 18 133/78 (96) 98 06/30/19 00:00 99.0 54 18 127/86 (100) 98 06/29/19 21:00 Room Air 06/29/19 20:00 97.4 75 18 151/89 (109) 99 06/29/19 16:00 98.3 66 19 136/88 (104) 98 06/29/19 12:00 98.8 62 20 139/92 (108) 98 Intake and Output 06/29/19 06/30/19 19:00 07:00 Intake Total 1780 ml 750 ml Output Total 1440 ml Balance 1780 ml -690 ml Intake Oral 880 ml IV Total 900 ml 750 ml Output Urine Total 1440 ml # Voids 6 4 Laboratory Tests 06/29/19 13:30: Urine Opiates Screen Negative, Urine Barbiturates Screen Negative, Phencyclidine (PCP) Screen Negative, Urine Amphetamines Screen Negative, Urine Benzodiazepines Screen Negative, Urine Cocaine Screen Negative, Urine Marijuana (THC) Screen PositiveH 06/30/19 04:48: White Blood Count 4.7L, Red Blood Count 4.49L, Hemoglobin 14.2, Hematocrit 43.0 , Mean Corpuscular Volume 96, Mean Corpuscular Hemoglobin 31.7H, Mean Corpuscular Hemoglobin Concent 33.1, Red Cell Distribution Width 11.5L, Platelet Count 208, Mean Platelet Volume 7.8, Neutrophils (%) (Auto) 37.6L, Lymphocytes (%) (Auto) 34.9, Monocytes (%) (Auto) 11.8H, Eosinophils (%) (Auto) 14.4H, Basophils (%) (Auto) 1.3, Sodium Level 137, Potassium Level 3.4L, Chloride Level 103, Carbon Dioxide Level 26, Anion Gap 8, Blood Urea Nitrogen 6L , Creatinine 1.0, Estimat Glomerular Filtration Rate > 60, Glucose Level 89, Calcium Level 8.8, Amylase Level 175H, Lipase 753H Height (Feet): 5 Height (Inches): 6.00 Weight (Pounds): 188 General Appearance: lethargic EENT: normal ENT inspection Neck: normal alignment Cardiovascular: normal peripheral pulses, normal rate, regular rhythm Respiratory/Chest: chest wall non-tender, lungs clear, normal breath sounds Abdomen: normal bowel sounds, non tender, soft Extremities: normal inspection Edema: no edema noted Arm (L), no edema noted Arm (R), no edema noted Leg (L), no edema noted Leg (R), no edema noted Pedal (L), no edema noted Pedal (R), no edema noted Generalized Neurologic: responsive, motor weakness Skin: normal pigmentation, warm/dry Dale Smith DO Jun 30, 2019 10:02
--- NOTE | 2019-06-30 10:51 | GI Progress Note ---
Assessment/Plan Problems: (1) Abdominal pain ICD Codes: R10.9 - Unspecified abdominal pain SNOMED: 84258288 (2) Pancreatitis ICD Codes: K85.90 - Acute pancreatitis without necrosis or infection, unspecified SNOMED: 33786975 (3) Nausea ICD Codes: R11.0 - Nausea SNOMED: 079542250 (4) Back sprain ICD Codes: S23.9XXA - Sprain of unspecified parts of thorax, initial encounter SNOMED: 234567732 Status: unchanged Status Narrative Discussed with Dr. Mobley. Assessment/Plan management for acute pancreatitis FLD today, advance as tolerated US reviewed, fu CT pancreatic protocol utox positive for MJ pain mgmt ppi zofran prn trend lipase The patient was seen and examined at bedside and all new and available data was reviewed in the patients chart. I agree with the above findings, impression and plan. (Patient seen earlier today. Signature stamp does not reflect patient encounter time.). - Jose Mobley MD Subjective Gastrointestinal/Abdominal: Reports: no symptoms Objective Last 24 Hour Vital Signs Date Time Temp Pulse Resp B/P (MAP) Pulse Ox O2 Delivery O2 Flow Rate FiO2 06/30/19 08:00 98.0 62 18 120/83 (95) 98 06/30/19 04:00 97.9 63 18 133/78 (96) 98 06/30/19 00:00 99.0 54 18 127/86 (100) 98 06/29/19 21:00 Room Air 06/29/19 20:00 97.4 75 18 151/89 (109) 99 06/29/19 16:00 98.3 66 19 136/88 (104) 98 06/29/19 12:00 98.8 62 20 139/92 (108) 98 Intake and Output 06/29/19 06/30/19 19:00 07:00 Intake Total 1780 ml 750 ml Output Total 1440 ml Balance 1780 ml -690 ml Intake Oral 880 ml IV Total 900 ml 750 ml Output Urine Total 1440 ml # Voids 6 4 Laboratory Tests Test 06/29/19 13:30 06/30/19 04:48 Urine Opiates Screen Negative (NEGATIVE) Urine Barbiturates Screen Negative (NEGATIVE) Phencyclidine (PCP) Screen Negative (NEGATIVE) Urine Amphetamines Screen Negative (NEGATIVE) Urine Benzodiazepines Screen Negative (NEGATIVE) Urine Cocaine Screen Negative (NEGATIVE) Urine Marijuana (THC) Screen Positive (NEGATIVE) H White Blood Count 4.7 K/UL (4.8-10.8) L Red Blood Count 4.49 M/UL (4.70-6.10) L Hemoglobin 14.2 G/DL (14.2-18.0) Hematocrit 43.0 % (42.0-52.0) Mean Corpuscular Volume 96 FL (80-99) Mean Corpuscular Hemoglobin 31.7 PG (27.0-31.0) H Mean Corpuscular Hemoglobin Concent 33.1 G/DL (32.0-36.0) Red Cell Distribution Width 11.5 % (11.6-14.8) L Platelet Count 208 K/UL (150-450) Mean Platelet Volume 7.8 FL (6.5-10.1) Neutrophils (%) (Auto) 37.6 % (45.0-75.0) L Lymphocytes (%) (Auto) 34.9 % (20.0-45.0) Monocytes (%) (Auto) 11.8 % (1.0-10.0) H Eosinophils (%) (Auto) 14.4 % (0.0-3.0) H Basophils (%) (Auto) 1.3 % (0.0-2.0) Sodium Level 137 MMOL/L (136-145) Potassium Level 3.4 MMOL/L (3.5-5.1) L Chloride Level 103 MMOL/L (98-107) Carbon Dioxide Level 26 MMOL/L (21-32) Anion Gap 8 mmol/L (5-15) Blood Urea Nitrogen 6 mg/dL (7-18) L Creatinine 1.0 MG/DL (0.55-1.30) Estimat Glomerular Filtration Rate > 60 mL/min (>60) Glucose Level 89 MG/DL (74-106) Calcium Level 8.8 MG/DL (8.5-10.1) Amylase Level 175 U/L (25-115) H Lipase 753 U/L (73-393) H Height (Feet): 5 Height (Inches): 6.00 Weight (Pounds): 188 General Appearance: WD/WN, no apparent distress, alert Cardiovascular: normal rate Respiratory/Chest: normal breath sounds, no respiratory distress Abdominal Exam: normal bowel sounds, non tender, soft Extremities: non-tender Marisa Coto NP Jun 30, 2019 10:51
[2019-06-30] MEDS: Morphine Sulfate 4mg/ml Inj (IV USE ONLY) IVP PRN ×2 (11:24→16:39)
--- NOTE | 2019-06-30 11:31 | NUR ---
RD ASSESSMENT & RECOMMENDATIONS SEE CARE ACTIVITY FOR COMPLETE ASSESSMENT DAILY ESTIMATED NEEDS: Needs based on pancreatitis/ 70kg abw 25-30 kcals/kg 2625-5498 total kcals 1-1.5g g protein/kg 70-105 g total protein 25-30 mL/kg 7412-1458 total fluid mLs NUTRITION DIAGNOSIS: * Altered nutrition related lab values R/T pancreatitis as evidenced by elev lipase (now down to 753), elev amylase (now 175). CURRENT DIET: Full Liquid PO DIET RECOMMENDATIONS: Advance as able to LOW FAT diet ADDITIONAL RECOMMENDATIONS: * Standing wt as able * Monitor PO tolerance * Diet edu on Low Fat diet provided (06/30) * Check lytes daily, replete as needed (K 3.4)
[2019-06-30 12:00] VITALS: BP 134/83
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
--- NOTE | 2019-06-30 13:30 | NUR ---
NURSE NOTES: patient is off the unit for CT scan in stable condition.
--- NOTE | 2019-06-30 13:49 | Pulmonology Progress Note ---
Assessment/Plan Problems: (1) Pancreatitis Assessment/Plan CT of abdomen symptomatic treatment lipase and amylase falling f/u GI recommendations. Subjective ROS Limited/Unobtainable: No Constitutional: Reports: no symptoms HEENT: Repors: no symptoms Allergies: Coded Allergies: PENICILLINS (Unverified Allergy, Unknown, 06/24/14) Objective Last 24 Hour Vital Signs Date Time Temp Pulse Resp B/P (MAP) Pulse Ox O2 Delivery O2 Flow Rate FiO2 06/30/19 12:00 97.6 68 18 134/83 (100) 98 06/30/19 09:00 Room Air 06/30/19 08:00 98.0 62 18 120/83 (95) 98 06/30/19 04:00 97.9 63 18 133/78 (96) 98 06/30/19 00:00 99.0 54 18 127/86 (100) 98 06/29/19 21:00 Room Air 06/29/19 20:00 97.4 75 18 151/89 (109) 99 06/29/19 16:00 98.3 66 19 136/88 (104) 98 Intake and Output 06/29/19 06/30/19 19:00 07:00 Intake Total 1780 ml 750 ml Output Total 1440 ml Balance 1780 ml -690 ml Intake Oral 880 ml IV Total 900 ml 750 ml Output Urine Total 1440 ml # Voids 6 4 General Appearance: WD/WN, no acute distress HEENT: normocephalic, atraumatic Respiratory/Chest: chest wall non-tender, lungs clear Cardiovascular: normal peripheral pulses, regular rhythm, no JVD Laboratory Tests 06/30/19 04:48: White Blood Count 4.7L, Red Blood Count 4.49L, Hemoglobin 14.2, Hematocrit 43.0 , Mean Corpuscular Volume 96, Mean Corpuscular Hemoglobin 31.7H, Mean Corpuscular Hemoglobin Concent 33.1, Red Cell Distribution Width 11.5L, Platelet Count 208, Mean Platelet Volume 7.8, Neutrophils (%) (Auto) 37.6L, Lymphocytes (%) (Auto) 34.9, Monocytes (%) (Auto) 11.8H, Eosinophils (%) (Auto) 14.4H, Basophils (%) (Auto) 1.3, Sodium Level 137, Potassium Level 3.4L, Chloride Level 103, Carbon Dioxide Level 26, Anion Gap 8, Blood Urea Nitrogen 6L , Creatinine 1.0, Estimat Glomerular Filtration Rate > 60, Glucose Level 89, Calcium Level 8.8, Amylase Level 175H, Lipase 753H Current Medications Medications (Trade) Dose Ordered Sig/Zenobia Route PRN Reason Start Time Stop Time Status Last Admin Dose Admin Acetaminophen (Tylenol) 650 mg Q4H PRN ORAL fever 06/28/19 23:00 07/28/19 22:59 Acetaminophen/ Hydrocodone Bitart ([place] 5/325) 1 tab Q6H PRN ORAL For Pain 06/28/19 23:00 07/05/19 22:59 Cyclobenzaprine HCl (Flexeril) 10 mg TID PRN ORAL Muscle Spasm 06/28/19 23:00 07/28/19 22:59 Dextrose (Dextrose 50%) 25 ml Q30M PRN IV Hypoglycemia 06/28/19 23:00 07/28/19 22:59 Dextrose (Dextrose 50%) 50 ml Q30M PRN IV Hypoglycemia 06/28/19 23:00 07/28/19 22:59 Dextrose/Sodium Chloride 1,000 ml @ 75 mls/hr [id number] IV 06/28/19 22:53 07/28/19 22:52 06/30/19 01:35 Diatrizoate Meglum/ Diatrizoate Sod (Gastrografin) 30 ml NOW PRN ORAL Radiology Procedure 06/30/19 09:30 07/01/19 23:59 Diphenhydramine HCl (Benadryl) 25 mg Q6H PRN ORAL Itching/Pruritis 06/28/19 23:00 07/28/19 22:59 Heparin Sodium (Porcine) (Heparin 5000 units/ml) 5,000 units EVERY 12 HOURS SUBQ 06/29/19 09:00 07/29/19 08:59 06/30/19 08:31 Iopamidol (Isovue-300 100ml) 100 ml NOW PRN INJ Radiology Procedure 06/30/19 09:30 07/01/19 23:59 Lorazepam (Ativan 2mg/ml 1ml) 1 mg Q4H PRN IV agitation 06/28/19 23:00 07/05/19 22:59 Metoclopramide HCl (Reglan) 10 mg Q6H PRN IVP jet [place] 06/28/19 23:00 07/28/19 22:59 Morphine Sulfate (Morphine Sulfate) 4 mg Q4H PRN IVP Severe Pain (Pain Scale 7-10) 06/29/19 13:15 07/06/19 13:14 06/30/19 11:24 Nitroglycerin (Ntg) 0.4 mg Q5M X 3 DOSES PRN SL Prn Chest Pain 06/28/19 23:00 07/28/19 22:59 Ondansetron HCl (Zofran) 4 mg Q6H PRN IVP Nausea & Vomiting 06/28/19 23:00 07/28/19 22:59 06/30/19 11:21 Pantoprazole (Protonix) 40 mg DAILY IV 06/29/19 09:00 07/29/19 08:59 06/30/19 08:30 Polyethylene Glycol (Miralax) 17 gm HSPRN PRN ORAL Constipation 06/28/19 23:00 07/28/19 22:59 Promethazine HCl 25 mg/Sodium Chloride 56 ml @ 110 mls/hr Q6H PRN IV Refractory N/V 06/28/19 23:00 07/28/19 22:59 Temazepam (Restoril) 15 mg HSPRN PRN ORAL Insomnia 06/28/19 23:00 07/05/19 22:59 Trimethoprim/ Sulfamethoxazole (Bactrim-DS) 1 tab Q12HR ORAL 06/29/19 13:56 07/06/19 13:55 06/30/19 08:30 Andrea Buitrago MD Jun 30, 2019 13:49
--- NOTE | 2019-06-30 14:00 | NUR ---
NURSE NOTES: Patient came back in stable condition.
--- NOTE | 2019-06-30 14:26 | Hematology/Onc Progress Note ---
Assessment/Plan Assessment/Plan # Prominent hypoechoic structure adjacent to the expected location of the pancreatic head measuring 2.9 x 1.8 --> obtain ct of the pancreas with ct protocol --> hold off on tumor markers at this time --> gi recs have been reviewed # Leukopenia with decrease in wbc --> likely due to underlying pancreatitis --> trend as needed, anc goal >1500 --> wbc 6-->5.7-->4.7 --> neupogen prn # Nausea/vomiting --> zofran on a prn basis # Back sprain --> reglan as needed # MJ with urine tox+ # GERD -- on ppi # DVT ppx heparin sq The timing of this note does not necessarily reflect the time of the patient was seen. GREATLY APPRECIATE CONSULTATION. Subjective Constitutional: Denies: no symptoms, chills, fever, malaise, weakness, other HEENT: Denies: no symptoms, eye pain, blurred vision, tearing, double vision, ear pain, ear discharge, nose pain, nose congestion, throat pain, throat swelling, mouth pain, mouth swelling, other Cardiovascular: Denies: no symptoms, chest pain, edema, irregular heart rate, lightheadedness, palpitations, syncope, other Respiratory: Denies: no symptoms, cough, shortness of breath, SOB with excertion, SOB at rest, sputum, wheezing, other Genitourinary: Denies: no symptoms, burning, discharge, frequency, flank pain, hematuria, incontinence, pain, urgency, other Neurologic/Psychiatric: Denies: no symptoms, anxiety, depressed, emotional problems, headache, numbness, paresthesia, pre-existing deficit, seizure, tingling, tremors, weakness, other Endocrine: Denies: no symptoms, excessive sweating, flushing, intolerance to cold, intolerance to heat, increased hunger, increased thirst, increased urine, unexplained weight gain, unexplained weight loss, other Hematologic/Lymphatic: Denies: no symptoms, anemia, easy bleeding, easy bruising, adenopathy, other Allergies: Coded Allergies: PENICILLINS (Unverified Allergy, Unknown, 06/24/14) Subjective 06/30: no events, pending ct scan, lipase improved, less abd pain Objective Objective Current Medications Medications (Trade) Dose Ordered Sig/Zenobia Route PRN Reason Start Time Stop Time Status Last Admin Dose Admin Acetaminophen (Tylenol) 650 mg Q4H PRN ORAL fever 06/28/19 23:00 07/28/19 22:59 Acetaminophen/ Hydrocodone Bitart ([place] 5/325) 1 tab Q6H PRN ORAL For Pain 06/28/19 23:00 07/05/19 22:59 Cyclobenzaprine HCl (Flexeril) 10 mg TID PRN ORAL Muscle Spasm 06/28/19 23:00 07/28/19 22:59 Dextrose (Dextrose 50%) 25 ml Q30M PRN IV Hypoglycemia 06/28/19 23:00 07/28/19 22:59 Dextrose (Dextrose 50%) 50 ml Q30M PRN IV Hypoglycemia 06/28/19 23:00 07/28/19 22:59 Dextrose/Sodium Chloride 1,000 ml @ 75 mls/hr [id number] IV 06/28/19 22:53 07/28/19 22:52 06/30/19 01:35 Diatrizoate Meglum/ Diatrizoate Sod (Gastrografin) 30 ml NOW PRN ORAL Radiology Procedure 06/30/19 09:30 07/01/19 23:59 Diphenhydramine HCl (Benadryl) 25 mg Q6H PRN ORAL Itching/Pruritis 06/28/19 23:00 07/28/19 22:59 Heparin Sodium (Porcine) (Heparin 5000 units/ml) 5,000 units EVERY 12 HOURS SUBQ 06/29/19 09:00 07/29/19 08:59 06/30/19 08:31 Iopamidol (Isovue-300 100ml) 100 ml NOW PRN INJ Radiology Procedure 06/30/19 09:30 07/01/19 23:59 Lorazepam (Ativan 2mg/ml 1ml) 1 mg Q4H PRN IV agitation 06/28/19 23:00 07/05/19 22:59 Metoclopramide HCl (Reglan) 10 mg Q6H PRN IVP servere nauasea 06/28/19 23:00 07/28/19 22:59 Morphine Sulfate (Morphine Sulfate) 4 mg Q4H PRN IVP Severe Pain (Pain Scale 7-10) 06/29/19 13:15 07/06/19 13:14 06/30/19 11:24 Nitroglycerin (Ntg) 0.4 mg Q5M X 3 DOSES PRN SL Prn Chest Pain 06/28/19 23:00 07/28/19 22:59 Ondansetron HCl (Zofran) 4 mg Q6H PRN IVP Nausea & Vomiting 06/28/19 23:00 07/28/19 22:59 06/30/19 11:21 Pantoprazole (Protonix) 40 mg DAILY IV 06/29/19 09:00 07/29/19 08:59 06/30/19 08:30 Polyethylene Glycol (Miralax) 17 gm HSPRN PRN ORAL Constipation 06/28/19 23:00 07/28/19 22:59 Promethazine HCl 25 mg/Sodium Chloride 56 ml @ 110 mls/hr Q6H PRN IV Refractory N/V 06/28/19 23:00 07/28/19 22:59 Temazepam (Restoril) 15 mg HSPRN PRN ORAL Insomnia 06/28/19 23:00 07/05/19 22:59 Trimethoprim/ Sulfamethoxazole (Bactrim-DS) 1 tab Q12HR ORAL 06/29/19 13:56 07/06/19 13:55 06/30/19 08:30 Last 24 Hour Vital Signs Date Time Temp Pulse Resp B/P (MAP) Pulse Ox O2 Delivery O2 Flow Rate FiO2 06/30/19 12:00 97.6 68 18 134/83 (100) 98 06/30/19 09:00 Room Air 06/30/19 08:00 98.0 62 18 120/83 (95) 98 06/30/19 04:00 97.9 63 18 133/78 (96) 98 06/30/19 00:00 99.0 54 18 127/86 (100) 98 06/29/19 21:00 Room Air 06/29/19 20:00 97.4 75 18 151/89 (109) 99 06/29/19 16:00 98.3 66 19 136/88 (104) 98 06/29/19 12:00 98.8 62 20 139/92 (108) 98 06/29/19 09:00 Room Air 06/29/19 08:00 97.8 60 18 130/78 (95) 98 06/29/19 04:00 97.7 54 18 133/84 (100) 97 06/29/19 00:14 Room Air 06/28/19 23:22 98.8 88 21 133/83 98 Room Air 06/28/19 22:00 98.8 88 21 133/83 98 Room Air 06/28/19 21:21 98.8 06/28/19 21:21 98.8 06/28/19 20:15 74 26 Room Air 06/28/19 19:58 98.8 74 26 137/93 (108) 98 Room Air Intake and Output 06/29/19 06/30/19 19:00 07:00 Intake Total 1780 ml 750 ml Output Total 1440 ml Balance 1780 ml -690 ml Intake Oral 880 ml IV Total 900 ml 750 ml Output Urine Total 1440 ml # Voids 6 4 Labs Test 06/28/19 20:15 06/28/19 22:00 06/29/19 06:15 06/29/19 13:30 White Blood Count 6.3 K/UL (4.8-10.8) 5.6 K/UL (4.8-10.8) Red Blood Count 4.33 M/UL (4.70-6.10) 4.32 M/UL (4.70-6.10) Hemoglobin 13.7 G/DL (14.2-18.0) 13.7 G/DL (14.2-18.0) Hematocrit 39.5 % (42.0-52.0) 41.7 % (42.0-52.0) Mean Corpuscular Volume 91 FL (80-99) 96 FL (80-99) Mean Corpuscular Hemoglobin 31.6 PG (27.0-31.0) 31.6 PG (27.0-31.0) Mean Corpuscular Hemoglobin Concent 34.7 G/DL (32.0-36.0) 32.8 G/DL (32.0-36.0) Red Cell Distribution Width 10.7 % (11.6-14.8) 11.2 % (11.6-14.8) Platelet Count 221 K/UL (150-450) 209 K/UL (150-450) Mean Platelet Volume 7.1 FL (6.5-10.1) 8.1 FL (6.5-10.1) Neutrophils (%) (Auto) 41.1 % (45.0-75.0) 43.8 % (45.0-75.0) Lymphocytes (%) (Auto) 30.1 % (20.0-45.0) 28.5 % (20.0-45.0) Monocytes (%) (Auto) 11.5 % (1.0-10.0) 10.6 % (1.0-10.0) Eosinophils (%) (Auto) 15.5 % (0.0-3.0) 15.7 % (0.0-3.0) Basophils (%) (Auto) 1.7 % (0.0-2.0) 1.4 % (0.0-2.0) Sodium Level 137 MMOL/L (136-145) 139 MMOL/L (136-145) Potassium Level 3.6 MMOL/L (3.5-5.1) 3.9 MMOL/L (3.5-5.1) Chloride Level 104 MMOL/L (98-107) 107 MMOL/L (98-107) Carbon Dioxide Level 30 MMOL/L (21-32) 27 MMOL/L (21-32) Anion Gap 3 mmol/L (5-15) 5 mmol/L (5-15) Blood Urea Nitrogen 10 mg/dL (7-18) 8 mg/dL (7-18) Creatinine 1.1 MG/DL (0.55-1.30) 1.1 MG/DL (0.55-1.30) Estimat Glomerular Filtration Rate > 60 mL/min (>60) > 60 mL/min (>60) Glucose Level 105 MG/DL (74-106) 94 MG/DL (74-106) Calcium Level 8.8 MG/DL (8.5-10.1) 8.7 MG/DL (8.5-10.1) Total Bilirubin 0.5 MG/DL (0.2-1.0) 0.6 MG/DL (0.2-1.0) Aspartate Amino Transf (AST/SGOT) 40 U/L (15-37) 34 U/L (15-37) Alanine Aminotransferase (ALT/SGPT) 93 U/L (12-78) 83 U/L (12-78) Alkaline Phosphatase 86 U/L (46-116) 69 U/L (46-116) Total Protein 7.5 G/DL (6.4-8.2) 7.1 G/DL (6.4-8.2) Albumin 3.6 G/DL (3.4-5.0) 3.3 G/DL (3.4-5.0) Globulin 3.9 g/dL 3.8 g/dL Albumin/Globulin Ratio 0.9 (1.0-2.7) 0.9 (1.0-2.7) Lipase 1625 U/L (73-393) 663 U/L (73-393) Urine Color Pale yellow Urine Appearance Clear Urine pH 7 (4.5-8.0) Urine Specific [place] 1.005 (1.005-1.035) Urine Protein Negative (NEGATIVE) Urine Glucose (UA) Negative (NEGATIVE) Urine Ketones Negative (NEGATIVE) Urine Blood Negative (NEGATIVE) Urine Nitrite Negative (NEGATIVE) Urine Bilirubin Negative (NEGATIVE) Urine Urobilinogen Normal MG/DL (0.0-1.0) Urine Leukocyte Esterase Negative (NEGATIVE) Activated Partial Thromboplast Time 30 SEC (23-33) Amylase Level 206 U/L (25-115) Urine Opiates Screen Negative (NEGATIVE) Urine Barbiturates Screen Negative (NEGATIVE) Phencyclidine (PCP) Screen Negative (NEGATIVE) Urine Amphetamines Screen Negative (NEGATIVE) Urine Benzodiazepines Screen Negative (NEGATIVE) Urine Cocaine Screen Negative (NEGATIVE) Urine Marijuana (THC) Screen Positive (NEGATIVE) Test 06/30/19 04:48 White Blood Count 4.7 K/UL (4.8-10.8) Red Blood Count 4.49 M/UL (4.70-6.10) Hemoglobin 14.2 G/DL (14.2-18.0) Hematocrit 43.0 % (42.0-52.0) Mean Corpuscular Volume 96 FL (80-99) Mean Corpuscular Hemoglobin 31.7 PG (27.0-31.0) Mean Corpuscular Hemoglobin Concent 33.1 G/DL (32.0-36.0) Red Cell Distribution Width 11.5 % (11.6-14.8) Platelet Count 208 K/UL (150-450) Mean Platelet Volume 7.8 FL (6.5-10.1) Neutrophils (%) (Auto) 37.6 % (45.0-75.0) Lymphocytes (%) (Auto) 34.9 % (20.0-45.0) Monocytes (%) (Auto) 11.8 % (1.0-10.0) Eosinophils (%) (Auto) 14.4 % (0.0-3.0) Basophils (%) (Auto) 1.3 % (0.0-2.0) Sodium Level 137 MMOL/L (136-145) Potassium Level 3.4 MMOL/L (3.5-5.1) Chloride Level 103 MMOL/L (98-107) Carbon Dioxide Level 26 MMOL/L (21-32) Anion Gap 8 mmol/L (5-15) Blood Urea Nitrogen 6 mg/dL (7-18) Creatinine 1.0 MG/DL (0.55-1.30) Estimat Glomerular Filtration Rate > 60 mL/min (>60) Glucose Level 89 MG/DL (74-106) Calcium Level 8.8 MG/DL (8.5-10.1) Amylase Level 175 U/L (25-115) Lipase 753 U/L (73-393) Height (Feet): 5 Height (Inches): 6.00 Weight (Pounds): 188 Objective General: WD/WN, no apparent distress, alert Cardiovascular: normal rate Respiratory/Chest: normal breath sounds, no respiratory distress Abdominal Exam: normal bowel sounds, non tender, soft Extremities: non-tender Fortino Han MD Jun 30, 2019 14:26
--- NOTE | 2019-06-30 15:31 | Diagnostic Imaging Report ---
Indication: Abdominal pain Technique: Continuous helical transaxial imaging of the abdomen and pelvis was obtained from the lung bases to the pubic symphysis during intravenous contrast administration. Coronal 2-D reformats were also obtained. Study obtained in a Siemens sensation [address] Automatic Exposure Control was utilized. Total Dose length Product (DLP): 1391.[address] Dose Index Volume (CTDIvol): 14.52,16.81 mGy Comparison: 06/25/[address] abdomen pelvis Findings: There is trace basilar atelectasis. The pancreas appears normal in contour and attenuation with no evidence of mass or abnormal enhancement. Gallbladder is unremarkable. There is no biliary ductal dilatation identified. The liver and spleen are unremarkable. Adrenal glands are unremarkable. The kidneys show normal enhancement and appear homogeneous and normal in size and contour. There is no hydronephrosis. No free fluid seen. Bowel gas pattern is nonobstructive. The appendix is normal. Urinary bladder is unremarkable. There are a few tiny discrete diverticula within the sigmoid colon. There is no free fluid. IMPRESSION: No abdominal mass identified. Unremarkable evaluation of the pancreas. Few discrete sigmoid diverticula without evidence of diverticulitis. The CT scanner at [facility] is accredited by the [employer] and the scans are performed using dose optimization techniques as appropriate to a performed exam including Automatic Exposure control.
--- NOTE | 2019-06-30 15:53 | NUR ---
P.T Note: P.T evaluation completed. Pt presented increased pain on the lower back , R posterior thigh and R groin area limiting gait performance and tolerance. Instructed patient on proper use of FWW to minimize pain symptoms and facilitate ease and safe ambulation with pt displayed good return demonstration. FWW recommend at [place] for home use if pain persist. NO further P.T follow up needed. Addendum: 06/30/19 at 1554 by JEREMIAS TRIPATHI PT Amended: Links added.
[2019-06-30 16:00] VITALS: BP 133/79
--- NOTE | 2019-06-30 16:39 | NUR ---
NURSE NOTES: Patient asked for morphine 4mg IVP for pain. VSS. Given IVP slowly as ordered. Will continue to monitor.
--- NOTE | 2019-06-30 18:12 | NUR ---
NURSE NOTES: patient's fiance is @ the bedside and patient complaining of nausea and threw up x1 liquid only, no blood.Zofran given. Patient asked for diet upgrade earlier and Rn received order from Torrey to upgrade his diet to low fat after relaying CT result. patient really wanted to eat food. He thinks that he is sick due to he hasn't been eating regular food. Patient started eating and had two spoons of spinach and threw up multiple times. Will continue to monitor. Rn stayed @ the bedside while throwing up. No aspiration.
--- NOTE | 2019-06-30 18:30 | NUR ---
NURSE NOTES: Patient is still nauseated and complaining of RLQ pain. RN informed Torrey of patient's condition with new order to change his diet to clear liquid and give regaln 5mg IVP PRN if needed. Will continue to monitor.
--- NOTE | 2019-06-30 19:00 | NUR ---
NURSE NOTES: Patient is calm @ this time. No more episodes of throwing up. Will continue to monitor.
[2019-06-30] MEDS ORDERED: Metoclopramide 10mg/2ml Inj IVP PRN (19:15)
--- NOTE | 2019-06-30 19:47 | NUR ---
CASE MANAGEMENT: REVIEW SI: PANCREATITIS T 99.0 HR 54 RR 18 BP 127/86 SAT 98% ROOM AIR WBC 4.7 K 3.4 AMYLASE [address] ABD -UNREMARKABLE EVALUATION OF THE PANCREAS IS: BACTRIM DS PO Q12HR REGLAN IV Q6HR PRN D5 1/2 NS IVF @75ML/HR CLEAR LIQUID DIET MED/SURG STATUS DCP: PATIENT IS FROM HOME
[2019-06-30 20:00] VITALS: BP 143/75
--- NOTE | 2019-06-30 20:27 | NUR ---
NURSE NOTES: RECEIVED PT FROM ZEUS LANDON. PT IS AWAKE, AAOX4, SITTING UP IN BED WITH FAMILY MEMBERS AT BEDSIDE. PT C/O NAUSEA AND ABDOMEN PAIN BUT REFUSED MORPHINE, STATED THAT HE'S NOT TOLERATING WELL AND IT MAKES HIM MORE NAUSEOUS. PT REQUESTED TO CHANGE PAIN MEDICATION. INFORMED DR. ZAMORA, WAITING FOR RESPONSE. IV ON RIGHT AC 20G IS INTACT AND PATENT, CURRENTLY RUNNING D5 1/2 NS AT 75ML/HR. BED IS LOCKED AT THE LOWEST POSITION, BED ALARMS ACTIVE, SIDE RAILS UP X2 AND CALL LIGHT IS WITHIN REACH. WILL CONTINUE TO MONITOR.
[2019-07-01] VITALS: BP 145/85
[2019-07-01 04:00] VITALS: BP 137/81
[2019-07-01] MEDS: D5 1/2NS 1,000 ML IV SCH (04:39)
[2019-07-01 07:05] LABS: ANION GAP 8 mmol/L (5-15); BLOOD UREA NITROGEN 5 mg/dL (7-18); CALCIUM 9.1 MG/DL (8.5-10.1); CARBON DIOXIDE 26 MMOL/L (21-32); CHLORIDE 104 MMOL/L (98-107); CREATININE 1.3 MG/DL (0.55-1.30); POTASSIUM 3.8 MMOL/L (3.5-5.1); SODIUM 138 MMOL/L (136-145)
[2019-07-01 07:11] LABS: BASOPHILS % (AUTO) 1.3 % (0.0-2.0); EOSINOPHILS % (AUTO) 12.9 % (0.0-3.0); HEMATOCRIT 43.1 % (42.0-52.0); HEMOGLOBIN 14.5 G/DL (14.2-18.0); LYMPHOCYTES % (AUTO) 33.3 % (20.0-45.0); MEAN CORPUSCULAR VOLUME 95 FL (80-99); MONOCYTES % (AUTO) 14.5 % (1.0-10.0); PLATELET COUNT 219 K/UL (150-450); RED BLOOD COUNT 4.55 M/UL (4.70-6.10); RED CELL DISTRIBUTION WIDTH 11.1 % (11.6-14.8); WHITE BLOOD COUNT 4.5 K/UL (4.8-10.8)
--- NOTE | 2019-07-01 07:53 | NUR ---
NURSE NOTES: received report from Deedee,RN. patient in bed, alert. oriented. verbally responsive. no respiratory distress noted. on room air. no pain at this time. IV on RAC 20 g. intact. no n/v this morning. bed in the lowest position. alarm on. call light within reach. will continue to provide plan of care.
[2019-07-01 08:00] VITALS: BP 130/71
--- NOTE | 2019-07-01 08:14 | NUR ---
HAND-OFF: Report given to ZEUS RANDALL.
[2019-07-01] MEDS: Pantoprazole Inj IV SCH (08:52)
[2019-07-01] MEDS: Bactrim-DS 1 tab ORAL SCH (08:52)
[2019-07-01] MEDS: Heparin 5000 units/ml inj SUBQ SCH (08:53)
--- NOTE | 2019-07-01 09:30 | NUR ---
NURSE NOTES: patient admitted to [facility] under Shay Hong care. DX of Cholecystitis. alert. oriented. verbally responsive. NKA, no homemedications. hx of asthma. no respiratory distress on room air. IV on RAC saline lock intact. bed in the lowest position. call light within reach. notified dr. Day and waiting for admission orders.
--- NOTE | 2019-07-01 09:58 | GI Progress Note ---
Assessment/Plan Problems: (1) Abdominal pain ICD Codes: R10.9 - Unspecified abdominal pain SNOMED: 54039280 (2) Pancreatitis ICD Codes: K85.90 - Acute pancreatitis without necrosis or infection, unspecified SNOMED: 28613260 (3) Nausea ICD Codes: R11.0 - Nausea SNOMED: 547655234 (4) Back sprain ICD Codes: S23.9XXA - Sprain of unspecified parts of thorax, initial encounter SNOMED: 289388688 Status: stable Status Narrative Discussed with Dr. Mobley. Assessment/Plan negative APCT okay for DC per GI standpoint if tolerates lunch management for acute pancreatitis utox positive for MJ pain mgmt ppi zofran prn trend lipase The patient was seen and examined at bedside and all new and available data was reviewed in the patients chart. I agree with the above findings, impression and plan. (Patient seen earlier today. Signature stamp does not reflect patient encounter time.). - Jose Mobley MD Subjective Gastrointestinal/Abdominal: Reports: no symptoms Objective Last 24 Hour Vital Signs Date Time Temp Pulse Resp B/P (MAP) Pulse Ox O2 Delivery O2 Flow Rate FiO2 07/01/19 08:00 97.6 68 18 130/71 (90) 97 07/01/19 04:00 97.8 67 20 137/81 (99) 99 07/01/19 00:00 97.7 56 20 145/85 (105) 99 06/30/19 21:00 Room Air 06/30/19 20:00 97.5 66 24 143/75 (97) 97 06/30/19 16:00 97.9 70 18 133/79 (97) 98 06/30/19 12:00 97.6 68 18 134/83 (100) 98 Intake and Output 06/30/19 07/01/19 19:00 07:00 Intake Total 1425 ml 900 ml Output Total 1250 ml 100 ml Balance 175 ml 800 ml Intake Oral 600 ml IV Total 825 ml 900 ml Output Urine Total 1200 ml 100 ml Emesis 50 ml # Voids 7 # Bowel Movements 2 Laboratory Tests Test 07/01/19 05:30 White Blood Count 4.5 K/UL (4.8-10.8) L Red Blood Count 4.55 M/UL (4.70-6.10) L Hemoglobin 14.5 G/DL (14.2-18.0) Hematocrit 43.1 % (42.0-52.0) Mean Corpuscular Volume 95 FL (80-99) Mean Corpuscular Hemoglobin 31.8 PG (27.0-31.0) H Mean Corpuscular Hemoglobin Concent 33.6 G/DL (32.0-36.0) Red Cell Distribution Width 11.1 % (11.6-14.8) L Platelet Count 219 K/UL (150-450) Mean Platelet Volume 7.7 FL (6.5-10.1) Neutrophils (%) (Auto) 38.0 % (45.0-75.0) L Lymphocytes (%) (Auto) 33.3 % (20.0-45.0) Monocytes (%) (Auto) 14.5 % (1.0-10.0) H Eosinophils (%) (Auto) 12.9 % (0.0-3.0) H Basophils (%) (Auto) 1.3 % (0.0-2.0) Sodium Level 138 MMOL/L (136-145) Potassium Level 3.8 MMOL/L (3.5-5.1) Chloride Level 104 MMOL/L (98-107) Carbon Dioxide Level 26 MMOL/L (21-32) Anion Gap 8 mmol/L (5-15) Blood Urea Nitrogen 5 mg/dL (7-18) L Creatinine 1.3 MG/DL (0.55-1.30) Estimat Glomerular Filtration Rate > 60 mL/min (>60) Glucose Level 87 MG/DL (74-106) Calcium Level 9.1 MG/DL (8.5-10.1) Lipase 532 U/L (73-393) H Height (Feet): 5 Height (Inches): 6.00 Weight (Pounds): 188 General Appearance: WD/WN, no apparent distress, alert Cardiovascular: normal rate Respiratory/Chest: normal breath sounds, no respiratory distress Abdominal Exam: normal bowel sounds, non tender, soft Extremities: normal range of motion, non-tender Marisa Coto NP Jul 01, 2019 09:58
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
[2019-07-01 12:00] VITALS: BP 130/78
--- NOTE | 2019-07-01 13:10 | NUR ---
*-* INSURANCE *-* ALL CLINICALS AND REVIEWS HAVE BEEN FAXED TO: [facility] [place] FAX ALL CLINICALS TO [phone]
--- NOTE | 2019-07-01 13:16 | Pulmonology Progress Note ---
Assessment/Plan Problems: (1) Pancreatitis (2) Paresthesia Assessment/Plan eating well symptomatic treatment lipase and amylase falling f/u GI recommendations. Subjective ROS Limited/Unobtainable: No Constitutional: Reports: no symptoms HEENT: Repors: no symptoms Allergies: Coded Allergies: PENICILLINS (Unverified Allergy, Unknown, 06/24/14) Objective Last 24 Hour Vital Signs Date Time Temp Pulse Resp B/P (MAP) Pulse Ox O2 Delivery O2 Flow Rate FiO2 07/01/19 08:00 97.6 68 18 130/71 (90) 97 07/01/19 04:00 97.8 67 20 137/81 (99) 99 07/01/19 00:00 97.7 56 20 145/85 (105) 99 06/30/19 21:00 Room Air 06/30/19 20:00 97.5 66 24 143/75 (97) 97 06/30/19 16:00 97.9 70 18 133/79 (97) 98 Intake and Output 06/30/19 07/01/19 19:00 07:00 Intake Total 1425 ml 900 ml Output Total 1250 ml 100 ml Balance 175 ml 800 ml Intake Oral 600 ml IV Total 825 ml 900 ml Output Urine Total 1200 ml 100 ml Emesis 50 ml # Voids 7 # Bowel Movements 2 Objective c/o tingling in his left hand and lower arm General Appearance: WD/WN HEENT: normocephalic, atraumatic Respiratory/Chest: chest wall non-tender, lungs clear Cardiovascular: normal peripheral pulses, normal rate Abdomen: normal bowel sounds, no organomegaly Laboratory Tests 07/01/19 05:30: White Blood Count 4.5L, Red Blood Count 4.55L, Hemoglobin 14.5, Hematocrit 43.1 , Mean Corpuscular Volume 95, Mean Corpuscular Hemoglobin 31.8H, Mean Corpuscular Hemoglobin Concent 33.6, Red Cell Distribution Width 11.1L, Platelet Count 219, Mean Platelet Volume 7.7, Neutrophils (%) (Auto) 38.0L, Lymphocytes (%) (Auto) 33.3, Monocytes (%) (Auto) 14.5H, Eosinophils (%) (Auto) 12.9H, Basophils (%) (Auto) 1.3, Sodium Level 138, Potassium Level 3.8, Chloride Level 104, Carbon Dioxide Level 26, Anion Gap 8, Blood Urea Nitrogen 5L , Creatinine 1.3, Estimat Glomerular Filtration Rate > 60, Glucose Level 87, Calcium Level 9.1, Lipase 532H Current Medications Medications (Trade) Dose Ordered Sig/Zenobia Route PRN Reason Start Time Stop Time Status Last Admin Dose Admin Acetaminophen (Tylenol) 650 mg Q4H PRN ORAL fever 06/28/19 23:00 07/28/19 22:59 Acetaminophen/ Hydrocodone Bitart ([place] 5/325) 1 tab Q6H PRN ORAL For Pain 06/28/19 23:00 07/05/19 22:59 Cyclobenzaprine HCl (Flexeril) 10 mg TID PRN ORAL Muscle Spasm 06/28/19 23:00 07/28/19 22:59 Dextrose (Dextrose 50%) 25 ml Q30M PRN IV Hypoglycemia 06/28/19 23:00 07/28/19 22:59 Dextrose (Dextrose 50%) 50 ml Q30M PRN IV Hypoglycemia 06/28/19 23:00 07/28/19 22:59 Dextrose/Sodium Chloride 1,000 ml @ 75 mls/hr [id number] IV 06/28/19 22:53 07/28/19 22:52 07/01/19 04:39 Diatrizoate Meglum/ Diatrizoate Sod (Gastrografin) 30 ml NOW PRN ORAL Radiology Procedure 06/30/19 09:30 07/01/19 23:59 Diphenhydramine HCl (Benadryl) 25 mg Q6H PRN ORAL Itching/Pruritis 06/28/19 23:00 07/28/19 22:59 Heparin Sodium (Porcine) (Heparin 5000 units/ml) 5,000 units EVERY 12 HOURS SUBQ 06/29/19 09:00 07/29/19 08:59 07/01/19 08:53 Iopamidol (Isovue-300 100ml) 100 ml NOW PRN INJ Radiology Procedure 06/30/19 09:30 07/01/19 23:59 Lorazepam (Ativan 2mg/ml 1ml) 1 mg Q4H PRN IV agitation 06/28/19 23:00 07/05/19 22:59 Metoclopramide HCl (Reglan) 5 mg Q6H PRN IVP Nausea & Vomiting 06/30/19 19:15 07/30/19 19:14 Morphine Sulfate (Morphine Sulfate) 4 mg Q4H PRN IVP Severe Pain (Pain Scale 7-10) 06/29/19 13:15 07/06/19 13:14 06/30/19 16:39 Nitroglycerin (Ntg) 0.4 mg Q5M X 3 DOSES PRN SL Prn Chest Pain 06/28/19 23:00 07/28/19 22:59 Ondansetron HCl (Zofran) 4 mg Q6H PRN IVP Nausea & Vomiting 06/28/19 23:00 07/28/19 22:59 06/30/19 18:12 Pantoprazole (Protonix) 40 mg DAILY IV 06/29/19 09:00 07/29/19 08:59 07/01/19 08:52 Polyethylene Glycol (Miralax) 17 gm HSPRN PRN ORAL Constipation 06/28/19 23:00 07/28/19 22:59 Promethazine HCl 25 mg/Sodium Chloride 56 ml @ 110 mls/hr Q6H PRN IV Refractory N/V 06/28/19 23:00 07/28/19 22:59 Temazepam (Restoril) 15 mg HSPRN PRN ORAL Insomnia 06/28/19 23:00 07/05/19 22:59 Trimethoprim/ Sulfamethoxazole (Bactrim-DS) 1 tab Q12HR ORAL 06/29/19 13:56 07/06/19 13:55 07/01/19 08:52 Andrea Buitrago MD Jul 01, 2019 13:16
--- NOTE | 2019-07-01 15:11 | Hematology/Onc Progress Note ---
Assessment/Plan Assessment/Plan # Prominent hypoechoic structure adjacent to the expected location of the pancreatic head measuring 2.9 x 1.8 --> obtain ct of the pancreas with ct protocol-> No abdominal mass identified. Unremarkable evaluation of the pancreas. --> hold off on tumor markers at this time --> gi recs have been reviewed # Leukopenia with decrease in wbc due to reactive proces --> likely due to underlying pancreatitis --> trend as needed, anc goal >1500 --> wbc 6-->5.7-->4.7-->4.5 --> neupogen prn # Nausea/vomiting --> zofran on a prn basis # Back sprain --> reglan as needed # Left leg boi --> on bactrim r/o mrsa # MJ with urine tox+ # GERD -- on ppi # DVT ppx heparin sq The timing of this note does not necessarily reflect the time of the patient was seen. GREATLY APPRECIATE CONSULTATION. Subjective Constitutional: Denies: no symptoms, chills, fever, malaise, weakness, other Cardiovascular: Denies: no symptoms, chest pain, edema, irregular heart rate, lightheadedness, palpitations, syncope, other Respiratory: Denies: no symptoms, cough, shortness of breath, SOB with excertion, SOB at rest, sputum, wheezing, other Gastrointestinal/Abdominal: Denies: no symptoms, abdomen distended, abdominal pain, black stools, tarry stools, blood in stool, constipated, diarrhea, difficulty swallowing, nausea, poor appetite, poor fluid intake, rectal bleeding , vomiting, other Neurologic/Psychiatric: Denies: no symptoms, anxiety, depressed, emotional problems, headache, numbness, paresthesia, pre-existing deficit, seizure, tingling, tremors, weakness, other Endocrine: Denies: no symptoms, excessive sweating, flushing, intolerance to cold, intolerance to heat, increased hunger, increased thirst, increased urine, unexplained weight gain, unexplained weight loss, other Allergies: Coded Allergies: PENICILLINS (Unverified Allergy, Unknown, 06/24/14) Subjective 06/30: no events, pending ct scan, lipase improved, less abd pain 07/01: no major events, labs have been reviewed, no bleeding chills or ns Objective Objective Current Medications Medications (Trade) Dose Ordered Sig/[place] Route PRN Reason Start Time Stop Time Status Last Admin Dose Admin Acetaminophen (Tylenol) 650 mg Q4H PRN ORAL fever 06/28/19 23:00 07/28/19 22:59 Acetaminophen/ Hydrocodone Bitart ([place] 5/325) 1 tab Q6H PRN ORAL For Pain 06/28/19 23:00 07/05/19 22:59 Cyclobenzaprine HCl (Flexeril) 10 mg TID PRN ORAL Muscle Spasm 06/28/19 23:00 07/28/19 22:59 Dextrose (Dextrose 50%) 25 ml Q30M PRN IV Hypoglycemia 06/28/19 23:00 07/28/19 22:59 Dextrose (Dextrose 50%) 50 ml Q30M PRN IV Hypoglycemia 06/28/19 23:00 07/28/19 22:59 Dextrose/Sodium Chloride 1,000 ml @ 75 mls/hr [id number] IV 06/28/19 22:53 07/28/19 22:52 07/01/19 04:39 Diatrizoate Meglum/ Diatrizoate Sod (Gastrografin) 30 ml NOW PRN ORAL Radiology Procedure 06/30/19 09:30 07/01/19 23:59 Diphenhydramine HCl (Benadryl) 25 mg Q6H PRN ORAL Itching/Pruritis 06/28/19 23:00 07/28/19 22:59 Heparin Sodium (Porcine) (Heparin 5000 units/ml) 5,000 units EVERY 12 HOURS SUBQ 06/29/19 09:00 07/29/19 08:59 07/01/19 08:53 Iopamidol (Isovue-300 100ml) 100 ml NOW PRN INJ Radiology Procedure 06/30/19 09:30 07/01/19 23:59 Lorazepam (Ativan 2mg/ml 1ml) 1 mg Q4H PRN IV agitation 06/28/19 23:00 07/05/19 22:59 Metoclopramide HCl (Reglan) 5 mg Q6H PRN IVP Nausea & Vomiting 06/30/19 19:15 07/30/19 19:14 Morphine Sulfate (Morphine Sulfate) 4 mg Q4H PRN IVP Severe Pain (Pain Scale 7-10) 06/29/19 13:15 07/06/19 13:14 06/30/19 16:39 Nitroglycerin (Ntg) 0.4 mg Q5M X 3 DOSES PRN SL Prn Chest Pain 06/28/19 23:00 07/28/19 22:59 Ondansetron HCl (Zofran) 4 mg Q6H PRN IVP Nausea & Vomiting 06/28/19 23:00 07/28/19 22:59 06/30/19 18:12 Pantoprazole (Protonix) 40 mg DAILY IV 06/29/19 09:00 07/29/19 08:59 07/01/19 08:52 Polyethylene Glycol (Miralax) 17 gm HSPRN PRN ORAL Constipation 06/28/19 23:00 07/28/19 22:59 Promethazine HCl 25 mg/Sodium Chloride 56 ml @ 110 mls/hr Q6H PRN IV Refractory N/V 06/28/19 23:00 07/28/19 22:59 Temazepam (Restoril) 15 mg HSPRN PRN ORAL Insomnia 06/28/19 23:00 07/05/19 22:59 Trimethoprim/ Sulfamethoxazole (Bactrim-DS) 1 tab Q12HR ORAL 06/29/19 13:56 07/06/19 13:55 07/01/19 08:52 Last 24 Hour Vital Signs Date Time Temp Pulse Resp B/P (MAP) Pulse Ox O2 Delivery O2 Flow Rate FiO2 07/01/19 12:00 98.2 56 17 130/78 (95) 98 07/01/19 09:00 Room Air 07/01/19 08:00 97.6 68 18 130/71 (90) 97 07/01/19 04:00 97.8 67 20 137/81 (99) 99 07/01/19 00:00 97.7 56 20 145/85 (105) 99 06/30/19 21:00 Room Air 06/30/19 20:00 97.5 66 24 143/75 (97) 97 06/30/19 16:00 97.9 70 18 133/79 (97) 98 06/30/19 12:00 97.6 68 18 134/83 (100) 98 06/30/19 09:00 Room Air 06/30/19 08:00 98.0 62 18 120/83 (95) 98 06/30/19 04:00 97.9 63 18 133/78 (96) 98 06/30/19 00:00 99.0 54 18 127/86 (100) 98 06/29/19 21:00 Room Air 06/29/19 20:00 97.4 75 18 151/89 (109) 99 06/29/19 16:00 98.3 66 19 136/88 (104) 98 Intake and Output 06/30/19 07/01/19 19:00 07:00 Intake Total 1425 ml 900 ml Output Total 1250 ml 100 ml Balance 175 ml 800 ml Intake Oral 600 ml IV Total 825 ml 900 ml Output Urine Total 1200 ml 100 ml Emesis 50 ml # Voids 7 # Bowel Movements 2 Labs Test 06/28/19 20:15 06/28/19 22:00 06/29/19 06:15 06/29/19 13:30 White Blood Count 6.3 K/UL (4.8-10.8) 5.6 K/UL (4.8-10.8) Red Blood Count 4.33 M/UL (4.70-6.10) 4.32 M/UL (4.70-6.10) Hemoglobin 13.7 G/DL (14.2-18.0) 13.7 G/DL (14.2-18.0) Hematocrit 39.5 % (42.0-52.0) 41.7 % (42.0-52.0) Mean Corpuscular Volume 91 FL (80-99) 96 FL (80-99) Mean Corpuscular Hemoglobin 31.6 PG (27.0-31.0) 31.6 PG (27.0-31.0) Mean Corpuscular Hemoglobin Concent 34.7 G/DL (32.0-36.0) 32.8 G/DL (32.0-36.0) Red Cell Distribution Width 10.7 % (11.6-14.8) 11.2 % (11.6-14.8) Platelet Count 221 K/UL (150-450) 209 K/UL (150-450) Mean Platelet Volume 7.1 FL (6.5-10.1) 8.1 FL (6.5-10.1) Neutrophils (%) (Auto) 41.1 % (45.0-75.0) 43.8 % (45.0-75.0) Lymphocytes (%) (Auto) 30.1 % (20.0-45.0) 28.5 % (20.0-45.0) Monocytes (%) (Auto) 11.5 % (1.0-10.0) 10.6 % (1.0-10.0) Eosinophils (%) (Auto) 15.5 % (0.0-3.0) 15.7 % (0.0-3.0) Basophils (%) (Auto) 1.7 % (0.0-2.0) 1.4 % (0.0-2.0) Sodium Level 137 MMOL/L (136-145) 139 MMOL/L (136-145) Potassium Level 3.6 MMOL/L (3.5-5.1) 3.9 MMOL/L (3.5-5.1) Chloride Level 104 MMOL/L (98-107) 107 MMOL/L (98-107) Carbon Dioxide Level 30 MMOL/L (21-32) 27 MMOL/L (21-32) Anion Gap 3 mmol/L (5-15) 5 mmol/L (5-15) Blood Urea Nitrogen 10 mg/dL (7-18) 8 mg/dL (7-18) Creatinine 1.1 MG/DL (0.55-1.30) 1.1 MG/DL (0.55-1.30) Estimat Glomerular Filtration Rate > 60 mL/min (>60) > 60 mL/min (>60) Glucose Level 105 MG/DL (74-106) 94 MG/DL (74-106) Calcium Level 8.8 MG/DL (8.5-10.1) 8.7 MG/DL (8.5-10.1) Total Bilirubin 0.5 MG/DL (0.2-1.0) 0.6 MG/DL (0.2-1.0) Aspartate Amino Transf (AST/SGOT) 40 U/L (15-37) 34 U/L (15-37) Alanine Aminotransferase (ALT/SGPT) 93 U/L (12-78) 83 U/L (12-78) Alkaline Phosphatase 86 U/L (46-116) 69 U/L (46-116) Total Protein 7.5 G/DL (6.4-8.2) 7.1 G/DL (6.4-8.2) Albumin 3.6 G/DL (3.4-5.0) 3.3 G/DL (3.4-5.0) Globulin 3.9 g/dL 3.8 g/dL Albumin/Globulin Ratio 0.9 (1.0-2.7) 0.9 (1.0-2.7) Lipase 1625 U/L (73-393) 663 U/L (73-393) Urine Color Pale yellow Urine Appearance Clear Urine pH 7 (4.5-8.0) Urine Specific [place] 1.005 (1.005-1.035) Urine Protein Negative (NEGATIVE) Urine Glucose (UA) Negative (NEGATIVE) Urine Ketones Negative (NEGATIVE) Urine Blood Negative (NEGATIVE) Urine Nitrite Negative (NEGATIVE) Urine Bilirubin Negative (NEGATIVE) Urine Urobilinogen Normal MG/DL (0.0-1.0) Urine Leukocyte Esterase Negative (NEGATIVE) Activated Partial Thromboplast Time 30 SEC (23-33) Amylase Level 206 U/L (25-115) Urine Opiates Screen Negative (NEGATIVE) Urine Barbiturates Screen Negative (NEGATIVE) Phencyclidine (PCP) Screen Negative (NEGATIVE) Urine Amphetamines Screen Negative (NEGATIVE) Urine Benzodiazepines Screen Negative (NEGATIVE) Urine Cocaine Screen Negative (NEGATIVE) Urine Marijuana (THC) Screen Positive (NEGATIVE) Test 06/30/19 04:48 07/01/19 05:30 White Blood Count 4.7 K/UL (4.8-10.8) 4.5 K/UL (4.8-10.8) Red Blood Count 4.49 M/UL (4.70-6.10) 4.55 M/UL (4.70-6.10) Hemoglobin 14.2 G/DL (14.2-18.0) 14.5 G/DL (14.2-18.0) Hematocrit 43.0 % (42.0-52.0) 43.1 % (42.0-52.0) Mean Corpuscular Volume 96 FL (80-99) 95 FL (80-99) Mean Corpuscular Hemoglobin 31.7 PG (27.0-31.0) 31.8 PG (27.0-31.0) Mean Corpuscular Hemoglobin Concent 33.1 G/DL (32.0-36.0) 33.6 G/DL (32.0-36.0) Red Cell Distribution Width 11.5 % (11.6-14.8) 11.1 % (11.6-14.8) Platelet Count 208 K/UL (150-450) 219 K/UL (150-450) Mean Platelet Volume 7.8 FL (6.5-10.1) 7.7 FL (6.5-10.1) Neutrophils (%) (Auto) 37.6 % (45.0-75.0) 38.0 % (45.0-75.0) Lymphocytes (%) (Auto) 34.9 % (20.0-45.0) 33.3 % (20.0-45.0) Monocytes (%) (Auto) 11.8 % (1.0-10.0) 14.5 % (1.0-10.0) Eosinophils (%) (Auto) 14.4 % (0.0-3.0) 12.9 % (0.0-3.0) Basophils (%) (Auto) 1.3 % (0.0-2.0) 1.3 % (0.0-2.0) Sodium Level 137 MMOL/L (136-145) 138 MMOL/L (136-145) Potassium Level 3.4 MMOL/L (3.5-5.1) 3.8 MMOL/L (3.5-5.1) Chloride Level 103 MMOL/L (98-107) 104 MMOL/L (98-107) Carbon Dioxide Level 26 MMOL/L (21-32) 26 MMOL/L (21-32) Anion Gap 8 mmol/L (5-15) 8 mmol/L (5-15) Blood Urea Nitrogen 6 mg/dL (7-18) 5 mg/dL (7-18) Creatinine 1.0 MG/DL (0.55-1.30) 1.3 MG/DL (0.55-1.30) Estimat Glomerular Filtration Rate > 60 mL/min (>60) > 60 mL/min (>60) Glucose Level 89 MG/DL (74-106) 87 MG/DL (74-106) Calcium Level 8.8 MG/DL (8.5-10.1) 9.1 MG/DL (8.5-10.1) Amylase Level 175 U/L (25-115) Lipase 753 U/L (73-393) 532 U/L (73-393) Height (Feet): 5 Height (Inches): 6.00 Weight (Pounds): 188 Objective General: WD/WN, no apparent distress, alert Cardiovascular: normal rate Respiratory/Chest: normal breath sounds, no respiratory distress Abdominal Exam: normal bowel sounds, non tender, soft Extremities: non-tender ++left leg Fortino Robert MD Jul 01, 2019 15:11
[2019-07-01 16:00] VITALS: BP 148/84
--- NOTE | 2019-07-01 16:45 | NUR ---
SS note This Sw provided patient with a letter stating hospitalization. Patient also requesting permission from MD when he can return to work; requesting medical leave from work for 2-3 days (RN to contact the MD to verify).
--- NOTE | 2019-07-01 17:13 | NUR ---
NURSE NOTES: patient discharged to home with stable condition accompanied by Ms kristy karimi. no respiratory distress noted. VD on left arm negative. Dr. enriquez will send a prescription, PO Bactrim, to patient [facility]. ([phone]). Patient and RP aware. removed IV and ID band. provided dc packet. obtained sign. checked and counted belonging with RP and obtained sign. escorted by HALEY Patiño to [facility], patient left safely.
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
--- NOTE | 2019-07-02 22:59 | Diagnostic Imaging Report ---
APPROVED REPORT CPT Code: 44869 Present Symptoms Comments: Pain LEFT UPPER EXTREMITY: Imaging reveals patency of the internal jugular, subclavian, axillary and brachial veins. The cephalic and basilic veins are also patent. Doppler indicates normal spontaneous flow within left upper extremity venous segment.
== END 2019-07-01 17:11 | disposition home or self-care (01) | DRG 282 ==
LOC: EMR 21:04 → 4E 22:18 → EDBEDREQ 23:11
DX: K85.90 Acute pancreatitis without necrosis or infection, unspecified (principal); L02.426 Furuncle of left lower limb; B95.62 Methicillin resistant Staphylococcus aureus infection as the cause of diseases classified elsewhere; Z88.0 Allergy status to penicillin; S33.5XXD Sprain of ligaments of lumbar spine, subsequent encounter; V89.2XXD Person injured in unspecified motor-vehicle accident, traffic, subsequent encounter
CPT/HCPCS: 36415; 74177; 76700; 80048; 80053; 80307; 81003; 82150; 83690; 85025; 85730; 93971; 96361; 96365; 96375; 96376; 99285; J2405; J8499

== ENCOUNTER 2019-07-02 04:10 | Inpatient (IN) | payer OTHER ==
[~2019-07-02] VITALS: Ht 177.8 cm; Wt 86.2 kg
--- NOTE | 2019-07-02 04:19 | NUR ---
ED Nurse Note: Pt BIBA from home c/o 08/26 abdominal pain, pt was seen yesterday for pancreatitis. Pt is A&Ox4, pt reports vommitting x7 since leaving hospital
[2019-07-02 04:21] VITALS: BP 145/68
--- NOTE | 2019-07-02 04:25 | Emergency Room Report ---
History of Present Illness General Chief Complaint: Abdominal Pain Source: Patient, Medical Record Present Illness HPI This a 44-year-old male with a history of pancreatitis. He was just discharged from here 12 hours ago. He was admitted for pancreatitis. Unknown etiology. Patient presents with chief complaint abdominal pain and vomiting. He was doing well until tonight. He had several episodes of vomiting. Also with left upper quadrant pain. Vomiting is nonbloody nonbilious. No diarrhea. No radiation of the pain. Pain is 9 out of 10. Similar to previous presentation. Allergies: Coded Allergies: PENICILLINS (Unverified Allergy, Unknown, 06/24/14) Patient History Past Medical History: see triage record, old chart reviewed Past Surgical History: other Pertinent Family History: none Social History: Denies: smoking Immunizations: other Reviewed Nursing Documentation: PMH: Agreed; PSxH: Agreed Nursing Documentation-PMH Past Medical History: No History, Except For Hx Cardiac Problems: No Hx Cancer: No Hx Gastrointestinal Problems: Yes - Pancreatitis Hx Neurological Problems: No Review of Systems Eye: Denies: eye pain, blurred vision ENT: Denies: ear pain, nose congestion, throat swelling Respiratory: Denies: cough, shortness of breath Cardiovascular: Denies: chest pain, palpitations Gastrointestinal: Reports: abdominal pain, nausea, vomiting; Denies: diarrhea Musculoskeletal: Denies: back pain, joint pain Skin: Denies: rash Neurological: Denies: headache, numbness Endocrine: Denies: increased thirst, increased urine Hematologic/Lymphatic: Denies: easy bruising All Other Systems: negative except mentioned in HPI Physical Exam Vital Signs Date Time Temp Pulse Resp B/P (MAP) Pulse Ox O2 Delivery O2 Flow Rate FiO2 07/02/19 04:09 97.7 88 18 145/68 (93) 96 Room Air Vitals unremarkable Sp02 EP Interpretation: reviewed, normal General Appearance: well appearing, no apparent distress, alert Head: normocephalic, atraumatic Eyes: bilateral eye PERRL, bilateral eye EOMI ENT: hearing grossly normal, normal pharynx Neck: full range of motion, supple, no meningismus Respiratory: chest non-tender, lungs clear, normal breath sounds Cardiovascular #1: regular rate, rhythm, no murmur Gastrointestinal: normal bowel sounds, no mass, no organomegaly, no bruit, non- distended, tenderness - Left upper quadrant Musculoskeletal: back normal, gait/station normal, normal range of motion Psychiatric: mood/affect normal Medical Decision Making Diagnostic Impression: Primary Impression: Pancreatitis, acute Qualified Codes: K85.90 - Acute pancreatitis without necrosis or infection, unspecified ER Course Patient presents with abdominal pain and has pancreatitis. His lipase is slightly elevated compared to discharge. Pain is better. Because of continued pain and recent discharge, will admit for further IV fluid and pain medication. No evidence of gallstone or alcohol induced pancreatitis. If lipase remain elevated, he may have stenosis of the pancreatic duct. I contacted Dr. Smith for admission. Last Vital Signs Date Time Temp Pulse Resp B/P (MAP) Pulse Ox O2 Delivery O2 Flow Rate FiO2 07/02/19 04:21 88 18 Room Air 07/02/19 04:21 97.7 145/68 96 Status: improved Disposition: ADMITTED INPATIENT Condition: Serious Dao Coto MD Jul 02, 2019 04:25
[2019-07-02] MEDS ORDERED: HYDROmorphone 1mg/ml Carpuject IVP ONE (04:30)
[2019-07-02 04:32] LABS: BASOPHILS % (AUTO) 1.5 % (0.0-2.0); EOSINOPHILS % (AUTO) 9.9 % (0.0-3.0); HEMATOCRIT 44.6 % (42.0-52.0); HEMOGLOBIN 15.1 G/DL (14.2-18.0); LYMPHOCYTES % (AUTO) 42.7 % (20.0-45.0); MEAN CORPUSCULAR VOLUME 93 FL (80-99); NEUTROPHILS % (AUTO) 33.9 % (45.0-75.0); PLATELET COUNT 245 K/UL (150-450); RED BLOOD COUNT 4.79 M/UL (4.70-6.10); RED CELL DISTRIBUTION WIDTH 10.8 % (11.6-14.8); WHITE BLOOD COUNT 5.6 K/UL (4.8-10.8)
[2019-07-02 04:36] LABS: ANION GAP 10 mmol/L (5-15); BLOOD UREA NITROGEN 10 mg/dL (7-18); CALCIUM 9.7 MG/DL (8.5-10.1); CARBON DIOXIDE 25 MMOL/L (21-32); CHLORIDE 99 MMOL/L (98-107); CREATININE 1.5 MG/DL (0.55-1.30); POTASSIUM 3.3 MMOL/L (3.5-5.1); SODIUM 134 MMOL/L (136-145)
[2019-07-02 04:40] LABS: ALANINE AMINOTRANSFERASE 73 U/L (12-78); ALBUMIN/GLOBULIN RATIO 0.9 (1.0-2.7); ALKALINE PHOSPHATASE 84 U/L (46-116); ASPARTATE AMINO TRANSFERASE 29 U/L (15-37); BILIRUBIN,TOTAL 0.9 MG/DL (0.2-1.0)
--- NOTE | 2019-07-02 06:25 | NUR ---
TRANSFER TO FLOOR: Patient transferred to as ordered, per Dr Smith. Report given to ZEUS Melara. Belongings and medications given to . Family and or S/O informed of transfer.
--- NOTE | 2019-07-02 06:40 | NUR ---
NURSE NOTES: Patient admitted from ER for pancreatitis via gurney. Patient is aaox4, fatigued and drowsy, in pain with movement. On o2 via NC at 2lpm. Belongings verified and accounted for. Patient requested to rest for now unable to remove gurney sheets underneath him at this time. Reattempt at a later time. Otherwise VSS. call light provided for patient. attempted to orient patient to room and unit, but patient is very drowsy at this time.
[2019-07-02 06:43] VITALS: BP 133/77
--- NOTE | 2019-07-02 07:49 | NUR ---
HAND-OFF: Report given to Marcy SCHULZ.
--- NOTE | 2019-07-02 08:08 | NUR ---
NURSE NOTES: Report received from Doc SCHULZ. Notified patient's primary MD regarding patient's arrival in the unit. Relayed abnormal labs and findings. Awaiting for call back regarding inpatient orders. Patient is asleep but arousable by voice. Respiration even and unlabored. Drowsy at this time. Unable to complete assessment. Will continue when patient is awake.
[2019-07-02] MEDS ORDERED: D5 1/2NS 1,000 ML IV SCH (10:00)
--- NOTE | 2019-07-02 10:30 | NUR ---
NURSE NOTES: Notified Dr. Holt regarding patient and family member's concerns. Per primary MD, will see the patient today. Notified family members.
[2019-07-02] MEDS ORDERED: HYDROcodone/Acetamin 5/325 tab ORAL PRN (10:45)
[2019-07-02] MEDS ORDERED: Miralax 17gm pkt ORAL PRN (10:45)
[2019-07-02] MEDS ORDERED: Cyclobenzaprine 10mg Tab ORAL PRN (10:45)
--- NOTE | 2019-07-02 11:17 | GI Progress Note ---
Assessment/Plan Problems: (1) Pancreatitis, acute ICD Codes: K85.90 - Acute pancreatitis without necrosis or infection, unspecified SNOMED: 661230905 Qualifiers: Qualified Codes: K85.90 - Acute pancreatitis without necrosis or infection, unspecified (2) Abdominal pain ICD Codes: R10.9 - Unspecified abdominal pain SNOMED: 51854675 (3) Nausea ICD Codes: R11.0 - Nausea SNOMED: 471166942 Status: unchanged Status Narrative Discussed with Dr. Mobley. Assessment/Plan negative APCT Patient readmitted same day after being discharged The patient admitted to smoking marijuana prior management for acute pancreatitis Will consider MRCP to evaluate for pancreatic stenosis if lipase levels do not trend down Maintain n.p.o. plus IV fluids pain mgmt ppi zofran prn trend lipase The patient was seen and examined at bedside and all new and available data was reviewed in the patients chart. I agree with the above findings, impression and plan. (Patient seen earlier today. Signature stamp does not reflect patient encounter time.). - Jose Mobley MD Subjective Gastrointestinal/Abdominal: Reports: no symptoms Objective Last 24 Hour Vital Signs Date Time Temp Pulse Resp B/P (MAP) Pulse Ox O2 Delivery O2 Flow Rate FiO2 07/02/19 10:21 Nasal Cannula 2.0 07/02/19 06:43 98.2 57 16 133/77 (95) 100 07/02/19 06:25 97.5 82 18 145/68 96 Room Air 07/02/19 05:03 97.5 07/02/19 04:21 88 18 Room Air 07/02/19 04:21 97.7 90 18 145/68 96 Room Air 07/02/19 04:09 97.7 88 18 145/68 (93) 96 Room Air Laboratory Tests Test 07/02/19 04:16 White Blood Count 5.6 K/UL (4.8-10.8) Red Blood Count 4.79 M/UL (4.70-6.10) Hemoglobin 15.1 G/DL (14.2-18.0) Hematocrit 44.6 % (42.0-52.0) Mean Corpuscular Volume 93 FL (80-99) Mean Corpuscular Hemoglobin 31.6 PG (27.0-31.0) H Mean Corpuscular Hemoglobin Concent 33.9 G/DL (32.0-36.0) Red Cell Distribution Width 10.8 % (11.6-14.8) L Platelet Count 245 K/UL (150-450) Mean Platelet Volume 8.0 FL (6.5-10.1) Neutrophils (%) (Auto) 33.9 % (45.0-75.0) L Lymphocytes (%) (Auto) 42.7 % (20.0-45.0) Monocytes (%) (Auto) 12.0 % (1.0-10.0) H Eosinophils (%) (Auto) 9.9 % (0.0-3.0) H Basophils (%) (Auto) 1.5 % (0.0-2.0) Sodium Level 134 MMOL/L (136-145) L Potassium Level 3.3 MMOL/L (3.5-5.1) L Chloride Level 99 MMOL/L (98-107) Carbon Dioxide Level 25 MMOL/L (21-32) Anion Gap 10 mmol/L (5-15) Blood Urea Nitrogen 10 mg/dL (7-18) Creatinine 1.5 MG/DL (0.55-1.30) H Estimat Glomerular Filtration Rate > 60 mL/min (>60) Glucose Level 106 MG/DL (74-106) Calcium Level 9.7 MG/DL (8.5-10.1) Total Bilirubin 0.9 MG/DL (0.2-1.0) Aspartate Amino Transf (AST/SGOT) 29 U/L (15-37) Alanine Aminotransferase (ALT/SGPT) 73 U/L (12-78) Alkaline Phosphatase 84 U/L (46-116) Total Protein 8.3 G/DL (6.4-8.2) H Albumin 4.0 G/DL (3.4-5.0) Globulin 4.3 g/dL Albumin/Globulin Ratio 0.9 (1.0-2.7) L Lipase 602 U/L (73-393) H Height (Feet): 5 Height (Inches): 10.00 Weight (Pounds): 190 General Appearance: WD/WN, no apparent distress, alert Cardiovascular: normal rate Respiratory/Chest: normal breath sounds, no respiratory distress Abdominal Exam: normal bowel sounds, non tender, soft Extremities: normal range of motion, non-tender Coto,Radha-Torrey UI LEAD DEVELOPER Jul 02, 2019 11:17
[2019-07-02 12:00] VITALS: BP 124/75
--- NOTE | 2019-07-02 12:12 | NUR ---
NURSE NOTES: Notified Dr. Holt regarding patient's family members request to see the primary MD. Notified Dr. Holt about the incident that happened previous admission that led to patient's complain of nerve pain on the left arm. Awaiting call back.
[2019-07-02] MEDS: D5 1/2NS w/KCl 20mEq 1,000 ML IV SCH ×2 (12:26→22:36)
[2019-07-02] MEDS: Methocarbamol 750mg tab ORAL SCH ×2 (12:32→17:40)
--- NOTE | 2019-07-02 13:54 | NUR ---
NURSE NOTES: Spoke to Dr. Briones regarding patient's nerve pain and as well as abdominal pain. New orders noted and will be carried out. Spoke to Dr. Holt regarding neurology consult, per , would like Dr. Melgar to be in the case. Per , will be in the unit between the hours of [id number] to see the patient. Notified family members. Patient is resting, no complains of pain at this time. IVF is infusing at a prescribed rate. No acute changes in medical condition.
--- NOTE | 2019-07-02 15:00 | NUR ---
NURSE NOTES: Patient is observed in bed, awake, alert, oriented. patient denies pain at this time. VSS. Will continue to monitor.
[2019-07-02 16:00] VITALS: BP 125/75
--- NOTE | 2019-07-02 17:23 | NUR ---
NURSE NOTES: Patient is requesting for food. Primary RN educated the patient the risks of having nausea and vomiting and importance of adhering to the primary MD's order, however, patient still insists. Notified Chica ELIZALDE. Clear liquid diet order obtained. Will monitor patient for n/v.
[2019-07-02] MEDS ORDERED: Doxycycline Monohydrate 100mg ORAL SCH (18:00)
--- NOTE | 2019-07-02 18:18 | Hematology/Onc Progress Note ---
Assessment/Plan Assessment/Plan Assessment/Plan # Prominent hypoechoic structure adjacent to the expected location of the pancreatic head measuring 2.9 x 1.8 --> obtain ct of the pancreas with ct protocol-> No abdominal mass identified. Unremarkable evaluation of the pancreas. --> hold off on tumor markers at this time --> gi recs have been reviewed # Hyperproteinemia can be related to dehydration --> obtain spep rule out monoclonal band --> if any further suspicion get upep # Leukopenia with decrease in wbc due to reactive proces --> likely due to underlying pancreatitis --> trend as needed, anc goal >1500 --> wbc 6-->5.7-->4.7-->4.5 --> neupogen prn # Nausea/vomiting --> zofran on a prn basis # Back sprain --> reglan as needed # Left leg boi --> on bactrim r/o mrsa # MJ with urine tox+ # GERD -- on ppi # DVT ppx heparin sq The timing of this note does not necessarily reflect the time of the patient was seen. GREATLY APPRECIATE CONSULTATION. Subjective HEENT: Denies: no symptoms, eye pain, blurred vision, tearing, double vision, ear pain, ear discharge, nose pain, nose congestion, throat pain, throat swelling, mouth pain, mouth swelling, other Cardiovascular: Denies: no symptoms, chest pain, edema, irregular heart rate, lightheadedness, palpitations, syncope, other Respiratory: Denies: no symptoms, cough, shortness of breath, SOB with excertion, SOB at rest, sputum, wheezing, other Gastrointestinal/Abdominal: Denies: no symptoms, abdomen distended, abdominal pain, black stools, tarry stools, blood in stool, constipated, diarrhea, difficulty swallowing, nausea, poor appetite, poor fluid intake, rectal bleeding , vomiting, other Genitourinary: Denies: no symptoms, burning, discharge, frequency, flank pain, hematuria, incontinence, pain, urgency, other Allergies: Coded Allergies: PENICILLINS (Unverified Allergy, Unknown, 06/24/14) Subjective 07/02: was readmitted in the early am, had secvere abdominal pain after having salad, labs show elev protein Objective Objective Current Medications Medications (Trade) Dose Ordered Sig/Zenobia Route PRN Reason Start Time Stop Time Status Last Admin Dose Admin Acetaminophen (Tylenol) 650 mg Q6H PRN ORAL Mild Pain (Pain Scale 1-3) 07/02/19 10:00 08/01/19 09:59 Acetaminophen/ Hydrocodone Bitart ([place] 5/325) 1 tab Q6H PRN ORAL For Pain 07/02/19 10:45 07/09/19 10:44 Cyclobenzaprine HCl (Flexeril) 10 mg TIDPRN PRN ORAL Muscle Spasm 07/02/19 10:45 08/01/19 10:44 Dextrose/ Electrolytes 1,000 ml @ 100 mls/hr Q10H IV 07/02/19 12:00 08/01/19 11:59 07/02/19 12:26 Diphenhydramine HCl (Benadryl) 25 mg TIDPRN PRN ORAL Itching 07/02/19 10:45 08/01/19 10:44 Famotidine (Pepcid) 20 mg BID ORAL 07/02/19 18:00 08/01/19 17:59 07/02/19 17:40 Gabapentin (Neurontin) 100 mg THREE TIMES A DAY ORAL 07/02/19 13:30 08/01/19 13:29 07/02/19 17:40 Heparin Sodium (Porcine) (Heparin 5000 units/ml) 5,000 units EVERY 12 HOURS SUBQ 07/02/19 21:00 08/01/19 20:59 Methocarbamol (Robaxin) 750 mg TID ORAL 07/02/19 13:00 08/01/19 12:59 07/02/19 17:40 Ondansetron HCl (Zofran) 4 mg Q6H PRN IVP Nausea & Vomiting 07/02/19 10:45 08/01/19 10:44 07/02/19 11:17 Polyethylene Glycol (Miralax) 17 gm BEDTIME PRN ORAL Constipation 07/02/19 10:45 08/01/19 10:44 Last 24 Hour Vital Signs Date Time Temp Pulse Resp B/P (MAP) Pulse Ox O2 Delivery O2 Flow Rate FiO2 07/02/19 16:00 98.1 62 20 125/75 (92) 100 07/02/19 12:00 98.3 60 20 124/75 (91) 100 07/02/19 10:21 Nasal Cannula 2.0 07/02/19 06:43 98.2 57 16 133/77 (95) 100 07/02/19 06:25 97.5 82 18 145/68 96 Room Air 07/02/19 05:03 97.5 07/02/19 04:21 88 18 Room Air 07/02/19 04:21 97.7 90 18 145/68 96 Room Air 07/02/19 04:09 97.7 88 18 145/68 (93) 96 Room Air Labs Test 07/02/19 04:16 White Blood Count 5.6 K/UL (4.8-10.8) Red Blood Count 4.79 M/UL (4.70-6.10) Hemoglobin 15.1 G/DL (14.2-18.0) Hematocrit 44.6 % (42.0-52.0) Mean Corpuscular Volume 93 FL (80-99) Mean Corpuscular Hemoglobin 31.6 PG (27.0-31.0) Mean Corpuscular Hemoglobin Concent 33.9 G/DL (32.0-36.0) Red Cell Distribution Width 10.8 % (11.6-14.8) Platelet Count 245 K/UL (150-450) Mean Platelet Volume 8.0 FL (6.5-10.1) Neutrophils (%) (Auto) 33.9 % (45.0-75.0) Lymphocytes (%) (Auto) 42.7 % (20.0-45.0) Monocytes (%) (Auto) 12.0 % (1.0-10.0) Eosinophils (%) (Auto) 9.9 % (0.0-3.0) Basophils (%) (Auto) 1.5 % (0.0-2.0) Sodium Level 134 MMOL/L (136-145) Potassium Level 3.3 MMOL/L (3.5-5.1) Chloride Level 99 MMOL/L (98-107) Carbon Dioxide Level 25 MMOL/L (21-32) Anion Gap 10 mmol/L (5-15) Blood Urea Nitrogen 10 mg/dL (7-18) Creatinine 1.5 MG/DL (0.55-1.30) Estimat Glomerular Filtration Rate > 60 mL/min (>60) Glucose Level 106 MG/DL (74-106) Calcium Level 9.7 MG/DL (8.5-10.1) Total Bilirubin 0.9 MG/DL (0.2-1.0) Aspartate Amino Transf (AST/SGOT) 29 U/L (15-37) Alanine Aminotransferase (ALT/SGPT) 73 U/L (12-78) Alkaline Phosphatase 84 U/L (46-116) Total Protein 8.3 G/DL (6.4-8.2) Albumin 4.0 G/DL (3.4-5.0) Globulin 4.3 g/dL Albumin/Globulin Ratio 0.9 (1.0-2.7) Lipase 602 U/L (73-393) Height (Feet): 5 Height (Inches): 10.00 Weight (Pounds): 190 Objective Gen: nad, + muscular throughout Pulm: decreased breath sounds CV: RRR Abd: soft nt nd Ext: no cce Fortino Han MD Jul 02, 2019 18:18
--- NOTE | 2019-07-02 19:46 | NUR ---
HAND-OFF: Report given to Gail SCHULZ. Pateint is observed in bed, awake, alert, oriented, and able to make needs known. No acute distress noted. Endorsed plan of care.
[2019-07-02 20:00] VITALS: BP_SYST 122; BP_SYST 124; BP_DIAS 85; BP_DIAS 94
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
[2019-07-02] MEDS: Heparin 5000 units/ml inj SUBQ SCH (22:10)
[2019-07-03] VITALS: BP 131/73
[2019-07-03 04:00] VITALS: BP 127/78
--- NOTE | 2019-07-03 06:00 | History and Physical Report ---
DATE OF ADMISSION: 07/02/2019 ADDENDUM I am covering for Dr. Dale Smith. This is Dr. Dale Smith's patient. HISTORY OF PRESENT ILLNESS: The patient was discharged and just came back within less than 24 hours for the same symptoms of pancreatitis. The patient left home and came today after discharge because of the same symptoms of recurrent vomiting and also complained of paresthesia on the left wrist. The patient denies rectal bleeding, denies constipation. PHYSICAL EXAMINATION: VITAL SIGNS: Temperature 97.2, pulse 79, blood pressure 113/70. HEENT: PERRLA. NECK: Supple. No lymphadenopathy. CHEST: Clear to auscultation. CARDIOVASCULAR: Regular rate and rhythm. No murmurs or extra sounds. GASTROINTESTINAL: Soft. Epigastric tenderness. No rebound. No organomegaly. EXTREMITIES: No edema. Reflexes on both sides. The patient does have some paresthesias in the right wrist. Reflexes on both sides. ASSESSMENT AND PLAN: Paresthesia in the right hand, pancreatitis, vomiting. Dr. Mobley, Dr. Martinez, and Dr. Melgar were consulted for this to rule out versus vomiting and further management of . Dr. Han and Dr. Martinez have been consulted for that reason. The patient was discharged on the same day and the following day. Dea Holt M.D. DR: Zeke JOB#: [id number] CC:
[2019-07-03 06:16] LABS: EOSINOPHILS % (AUTO) 13.3 % (0.0-3.0); HEMATOCRIT 44.7 % (42.0-52.0); HEMOGLOBIN 14.8 G/DL (14.2-18.0); LYMPHOCYTES % (AUTO) 44.7 % (20.0-45.0); MEAN CORPUSCULAR VOLUME 95 FL (80-99); MONOCYTES % (AUTO) 15.3 % (1.0-10.0); NEUTROPHILS % (AUTO) 24.9 % (45.0-75.0); PLATELET COUNT 237 K/UL (150-450); RED BLOOD COUNT 4.68 M/UL (4.70-6.10); RED CELL DISTRIBUTION WIDTH 11.2 % (11.6-14.8); WHITE BLOOD COUNT 4.7 K/UL (4.8-10.8)
[2019-07-03 06:43] LABS: ANION GAP 6 mmol/L (5-15); BLOOD UREA NITROGEN 6 mg/dL (7-18); CALCIUM 9.3 MG/DL (8.5-10.1); CARBON DIOXIDE 27 MMOL/L (21-32); CHLORIDE 107 MMOL/L (98-107); CREATININE 1.2 MG/DL (0.55-1.30); POTASSIUM 4.4 MMOL/L (3.5-5.1); SODIUM 140 MMOL/L (136-145)
--- NOTE | 2019-07-03 07:23 | NUR ---
HAND-OFF: Report given to JULIA SCHULZ WITH STABLE CONDITION.
--- NOTE | 2019-07-03 07:25 | NUR ---
HAND-OFF: Report given to HOLLI Bansal RN WITH STABLE CONDITION.
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
[2019-07-03 08:00] VITALS: BP 131/87
--- NOTE | 2019-07-03 08:36 | General Progress Note ---
Assessment/Plan Status: progressing, unchanged Assessment/Plan: 1) Pancreatitis, acute ICD Codes: K85.90 - Acute pancreatitis without necrosis or infection, unspecified SNOMED: 708521066 Qualifiers: Qualified Codes: K85.90 - Acute pancreatitis without necrosis or infection, unspecified (2) Abdominal pain ICD Codes: R10.9 - Unspecified abdominal pain SNOMED: 06124027 (3) Nausea ICD Codes: R11.0 - Nausea SNOMED: 110584098 Status: unchanged Status Narrative Discussed with Dr. Mobley. Assessment/Plan negative APCT Patient readmitted same day after being discharged The patient admitted to smoking marijuana prior management for acute pancreatitis Will consider MRCP to evaluate for pancreatic stenosis if lipase levels do not trend down advance diet pain mgmt ppi zofran prn trend lipas Subjective ROS Limited/Unobtainable: Yes Allergies: Coded Allergies: PENICILLINS (Unverified Allergy, Unknown, 06/24/14) Objective Last 24 Hour Vital Signs Date Time Temp Pulse Resp B/P (MAP) Pulse Ox O2 Delivery O2 Flow Rate FiO2 07/03/19 08:16 Room Air 07/03/19 08:00 98.8 93 18 131/87 (102) 99 07/03/19 04:00 98.2 62 20 127/78 (94) 98 07/03/19 00:00 98.0 20 131/73 (92) 98 07/02/19 21:00 Room Air 07/02/19 20:00 98.3 58 20 124/94 (104) 100 07/02/19 16:00 98.1 62 20 125/75 (92) 100 07/02/19 12:00 98.3 60 20 124/75 (91) 100 07/02/19 10:21 Nasal Cannula 2.0 Intake and Output 07/02/19 07/03/19 19:00 07:00 Intake Total 800 ml Output Total 400 ml 925 ml Balance -400 ml -125 ml Intake IV Total 800 ml Output Urine Total 400 ml 925 ml # Voids 3 Laboratory Tests 07/03/19 05:35: White Blood Count 4.7L, Red Blood Count 4.68L, Hemoglobin 14.8, Hematocrit 44.7 , Mean Corpuscular Volume 95, Mean Corpuscular Hemoglobin 31.6H, Mean Corpuscular Hemoglobin Concent 33.1, Red Cell Distribution Width 11.2L, Platelet Count 237, Mean Platelet Volume 8.0, Neutrophils (%) (Auto) 24.9L, Lymphocytes (%) (Auto) 44.7, Monocytes (%) (Auto) 15.3H, Eosinophils (%) (Auto) 13.3H, Basophils (%) (Auto) 2.0, Sodium Level 140, Potassium Level 4.4, Chloride Level 107, Carbon Dioxide Level 27, Anion Gap 6, Blood Urea Nitrogen 6L , Creatinine 1.2, Estimat Glomerular Filtration Rate > 60, Glucose Level 101, Calcium Level 9.3, Total Protein (PEP) [Pending], Albumin (PEP) [Pending], Globulin (PEP) [Pending], Albumin/Globulin Ratio [Pending], Rhsvt-2-Nbndnasrz [ Pending], Xmzvo-9-Nzhbxjpbm [Pending], Beta Globulins [Pending], Beta Gamma Globulin [Pending], PEP Abnormal Protein Bands [Pending], Protein Electrophoresis Interpret [Pending], Lipase 398H Height (Feet): 5 Height (Inches): 10.00 Weight (Pounds): 190 General Appearance: alert EENT: normal ENT inspection Neck: supple Cardiovascular: normal rate Respiratory/Chest: lungs clear Abdomen: normal bowel sounds, non tender, soft Extremities: non-tender Jose Mobley MD Jul 03, 2019 08:36
[2019-07-03] MEDS: Heparin 5000 units/ml inj SUBQ SCH ×2 (08:51→21:00)
[2019-07-03] MEDS: Methocarbamol 750mg tab ORAL SCH ×3 (08:51→17:34)
[2019-07-03] MEDS: D5 1/2NS w/KCl 20mEq 1,000 ML IV SCH (08:56)
[2019-07-03 12:00] VITALS: BP 127/108
[2019-07-03] MEDS ORDERED: Docusate 100mg tablet ORAL SCH (13:00)
[2019-07-03] MEDS: Docusate 100mg tablet ORAL SCH (13:24)
[2019-07-03 16:00] VITALS: BP 132/90
--- NOTE | 2019-07-03 19:15 | NUR ---
HAND-OFF: Report given to Luisito Ruiz.
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
--- NOTE | 2019-07-03 19:48 | NUR ---
NURSE NOTES: Patient in bed, asleep, arousable to name and touch. Abdomen is soft and non distended. No complaint of pain or discomfort noted. Skin is warm and dry to touch. IV site noted. Respiration is even and unlabored. Bed in low and locked position. Call light is at bedside. Will continue plan of care.
[2019-07-03 20:00] VITALS: BP 123/88
[2019-07-04 04:00] VITALS: BP 125/67
--- NOTE | 2019-07-04 04:30 | NUR ---
NURSE NOTES: Complained of left arm pain, "possibly nerve pain" per patient. Noted. Will endorse next shift.
--- NOTE | 2019-07-04 06:20 | General Progress Note ---
Assessment/Plan Status: progressing, unchanged Assessment/Plan: 1) Pancreatitis, acute ICD Codes: K85.90 - Acute pancreatitis without necrosis or infection, unspecified SNOMED: 093617269 Qualifiers: Qualified Codes: K85.90 - Acute pancreatitis without necrosis or infection, unspecified (2) Abdominal pain ICD Codes: R10.9 - Unspecified abdominal pain SNOMED: 22212045 (3) Nausea ICD Codes: R11.0 - Nausea SNOMED: 808180890 Status: unchanged Status Narrative Discussed with Dr. Mobley. Assessment/Plan negative APCT Patient readmitted same day after being discharged The patient admitted to smoking marijuana prior management for acute pancreatitis Will consider MRCP to evaluate for pancreatic stenosis if lipase levels do not trend down advance diet pain mgmt ppi zofran prn trend lipase Subjective ROS Limited/Unobtainable: Yes Allergies: Coded Allergies: PENICILLINS (Unverified Allergy, Unknown, 06/24/14) Objective Last 24 Hour Vital Signs Date Time Temp Pulse Resp B/P (MAP) Pulse Ox O2 Delivery O2 Flow Rate FiO2 07/03/19 21:00 Room Air 07/03/19 20:00 97.9 71 18 123/88 (100) 100 07/03/19 16:00 98.4 78 22 132/90 (104) 100 07/03/19 12:00 98.5 90 24 127/108 (114) 100 07/03/19 08:16 Room Air 07/03/19 08:00 98.8 93 18 131/87 (102) 99 Intake and Output 07/03/19 07/04/19 19:00 07:00 Intake Total 1300 ml Balance 1300 ml Intake Oral 1300 ml Height (Feet): 5 Height (Inches): 10.00 Weight (Pounds): 190 General Appearance: alert EENT: normal ENT inspection Neck: supple Cardiovascular: normal rate Respiratory/Chest: decreased breath sounds Abdomen: normal bowel sounds, non tender, soft Extremities: non-tender Jose Mobley MD Jul 04, 2019 06:20
--- NOTE | 2019-07-04 07:10 | NUR ---
HAND-OFF: Report given to ZEUS Hoover.
--- NOTE | 2019-07-04 07:20 | NUR ---
NURSE NOTES: WALKING ROUNDS DONE WITH OUTGOING RN. PATIENT AWAKE IN BED. QUESTIONS ANSWERED NEEDS MET. DENIES PAIN AT THIS TIME. DISCUSSED PLAN OF CARE FOR THE DAY. VERBALIZED UNDERSTANDING. BED IN LOW AND LOCKED POSITION. CALL LIGHT WITHIN REACH.
[2019-07-04 08:00] VITALS: BP 128/73
[2019-07-04] MEDS: Docusate 100mg tablet ORAL SCH (09:09)
[2019-07-04] MEDS: Methocarbamol 750mg tab ORAL SCH ×3 (09:09→17:37)
[2019-07-04 09:15] LABS: AMYLASE 148 U/L (25-115)
[2019-07-04] MEDS: Heparin 5000 units/ml inj SUBQ SCH ×2 (09:15→21:00)
[2019-07-04 12:00] VITALS: BP 137/68
--- NOTE | 2019-07-04 13:46 | Consultation ---
History of Present Illness General Date patient seen: Jul 04, 2019 Present Illness Allergies: Coded Allergies: PENICILLINS (Unverified Allergy, Unknown, 06/24/14) Medication History Scheduled Doxycycline Monohydrate* (Doxycycline Monohydrate*), 100 MG ORAL TWICE A DAY Lidocaine Patch* (Lidoderm Patch*), 1 PATCH TOPIC DAILY Methocarbamol* (Robaxin-750*), 750 MG PO TID Scheduled PRN Ibuprofen* (Motrin*), 600 MG ORAL Q8H PRN for For Pain Discontinued Medications Cyclobenzaprine Hcl* (Flexeril*), 10 MG ORAL TID PRN for Muscle Spasm Discontinued Reason: Pt stopped taking med Hydrocodone Bit/Acetaminophen 5-325* ([place] 5-325*), 1 TAB ORAL Q6H PRN for For Pain Discontinued Reason: Pt stopped taking med Ibuprofen* (Motrin*), 600 MG ORAL Q8H PRN for For Pain Discontinued Reason: Pt stopped taking med Ibuprofen* (Motrin*), 600 MG ORAL Q8H PRN for For Pain Discontinued Reason: Pt stopped taking med No Known Medications* (NKM - No Known Medications*), 0 ., (Reported) Discontinued Reason: Pt stopped taking med Patient History Healthcare decision maker Resuscitation status Full Code Advanced Directive on File Physical Exam Last 24 Hour Vital Signs Date Time Temp Pulse Resp B/P (MAP) Pulse Ox O2 Delivery O2 Flow Rate FiO2 07/04/19 12:00 98.6 80 19 137/68 (91) 98 07/04/19 09:00 Room Air 07/04/19 08:00 98.0 70 20 128/73 (91) 96 07/04/19 04:00 98.0 76 18 125/67 (86) 99 07/03/19 21:00 Room Air 07/03/19 20:00 97.9 71 18 123/88 (100) 100 07/03/19 16:00 98.4 78 22 132/90 (104) 100 Intake and Output 07/03/19 07/04/19 19:00 07:00 Intake Total 1300 ml 500 ml Output Total 650 ml Balance 1300 ml -150 ml Intake Oral 1300 ml 500 ml Output Urine Total 650 ml Laboratory Tests Test 07/04/19 08:30 Amylase Level 148 U/L (25-115) H Lipase 469 U/L (73-393) H Height (Feet): 5 Height (Inches): 10.00 Weight (Pounds): 190 Medications Current Medications Medications (Trade) Dose Ordered Sig/Zenobia Route PRN Reason Start Time Stop Time Status Last Admin Dose Admin Acetaminophen (Tylenol) 650 mg Q6H PRN ORAL Mild Pain (Pain Scale 1-3) 07/02/19 10:00 08/01/19 09:59 Acetaminophen/ Hydrocodone Bitart ([place] 5/325) 1 tab Q6H PRN ORAL For Pain 07/02/19 10:45 07/09/19 10:44 Cyclobenzaprine HCl (Flexeril) 10 mg TIDPRN PRN ORAL Muscle Spasm 07/02/19 10:45 08/01/19 10:44 07/03/19 16:38 Diphenhydramine HCl (Benadryl) 25 mg TIDPRN PRN ORAL Itching 07/02/19 10:45 08/01/19 10:44 Docusate Sodium (Colace) 100 mg DAILY ORAL 07/03/19 13:00 08/02/19 12:59 07/04/19 09:09 Famotidine (Pepcid) 20 mg BID ORAL 07/02/19 18:00 08/01/19 17:59 07/04/19 09:10 Gabapentin (Neurontin) 100 mg THREE TIMES A DAY ORAL 07/02/19 13:30 08/01/19 13:29 07/04/19 09:09 Heparin Sodium (Porcine) (Heparin 5000 units/ml) 5,000 units EVERY 12 HOURS SUBQ 07/02/19 21:00 08/01/19 20:59 07/04/19 09:15 Methocarbamol (Robaxin) 750 mg TID ORAL 07/02/19 13:00 08/01/19 12:59 07/04/19 09:09 Ondansetron HCl (Zofran) 4 mg Q6H PRN IVP Nausea & Vomiting 07/02/19 10:45 08/01/19 10:44 07/02/19 11:17 Polyethylene Glycol (Miralax) 17 gm BEDTIME PRN ORAL Constipation 07/02/19 10:45 08/01/19 10:44 Assessment/Plan Assessment/Plan: (1) Abdominal pain (2) Pancreatitis (3) Left hand pain (4) Cervical and Lumbar sprain seen dictated Cash Briones Jul 04, 2019 13:46
--- NOTE | 2019-07-04 14:20 | NUR ---
NURSE NOTES: PER PATIENT AND MOTHER REQUEST, PLACED CALL TO DR. TOMPKINS AND LEFT MESSAGE TO SEE IF MD WOULD SEE PATIENT TODAY CONCERNING LEFT HAND PAIN. AWAITING RETURN CALL. PATIENT INFORMED.
--- NOTE | 2019-07-04 15:35 | NUR ---
NURSE NOTES: DR. TOMPKINS HERE TO SEE PATIENT.
[2019-07-04 16:00] VITALS: BP 137/62
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
--- NOTE | 2019-07-04 19:35 | NUR ---
HAND-OFF: Report given to IRMA VEGAS RN.
--- NOTE | 2019-07-04 19:39 | NUR ---
NURSE NOTES: Patient in bed, awake, alert and verbally responsive. Able to make needs known. Kept clean and comfortable. No complaint of pain or discomfort noted. Bed in low and locked position. IV site noted. Skin is intact, warm and dry to touch. Respiration is even and unlabored. Family is at bedside. Will continue plan of care. Call light is at bedside.
[2019-07-04 20:00] VITALS: BP 136/84
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
--- NOTE | 2019-07-04 22:00 | NUR ---
NURSE NOTES: Patient noted saying that "the doctor who saw me today told me that I will need a stabilizer for my left arm." Will follow up, will provide some type of support at the moment. Patient still has pain on the left forearm to the hand at the moment, refuses to have pain medication. Patient was given routine gabapentin. Call light is at bedside. Will continue plan of care.
--- NOTE | 2019-07-05 02:15 | Consultation ---
DATE OF CONSULTATION: 07/04/2019 NEUROLOGIC CONSULTATION CONSULTING PHYSICIAN: Dima Melgar M.D. CHIEF COMPLAINT: This 44-year-old right-handed man was admitted third time with a chief complaint of pancreatitis. He had just been discharged about 12 hours prior to admission on 07/02/2019 with the same diagnosis. He was admitted with abdominal pain, nausea, vomiting. I was asked to see the patient for pain in the left hand after an attempted venipuncture of the left hand. The patient was recently admitted with a lipase of over 600. The patient is a nondrinker. He smokes about 3 to 4 cigarettes a day starting this year. An attempt was made to start an IV in the patient on Friday night. First, they started in the left antecubital fossa and then attempt was made on the dorsum of the left hand. This was followed with throbbing sharp pain "like a shock" and throbbing and burning, which has gotten pretty much daily constant. Occasionally if he touches it, it caused a shock-like pain. There is a rare sensory loss. Usually there is none. He also has 3 to 4 days worth of headaches. He had his neck pain on the left side in the last 2 days, usually when he awakens in the morning, lasts an hour, and then disappears. It does not radiate. He has lower back pain, which he has had before with associated weakness in his legs, which is improving. The low back pain does not radiate. The patient denies any seizures, blackouts, or memory loss. There is no loss of smell or taste or visual loss. He denies any hearing loss, tinnitus, dizzy spells, dysarthria, dysphagia, muscle weakness, tremors, shakes, loss of bowel or bladder function. He has had weakness in his legs and his back pain is now pretty much resolved. There is no numbness in the legs. The patient was admitted. See the chart. There is no family history of neurologic disease. PAST MEDICAL HISTORY/PAST MEDICAL ILLNESSES: 1. Pancreatitis. 2. History of low back pain. ALLERGIES: To penicillin is noted. SOCIAL HISTORY: He has four children in good health. FAMILY HISTORY: Mother has chronic disease including hypertension and back problems. His father is in good health. MEDICATIONS: No medications at home except for perhaps Zofran and Pepcid. REVIEW OF SYSTEMS: Appetite is good. His weight is stable. He is 5 feet 6 inches, 187 pounds. PHYSICAL EXAMINATION: GENERAL: Well developed, well nourished man, in mild distress. VITAL SIGNS: His blood pressure is 137/68, his temperature is 98.6 degrees, respiration rate is 19, pulse is 80 and regular. HEENT: Examination of head is normal. NECK: There is no posterior cervical tenderness or muscle spasm. No limitation of motion. Carotids are +2. No bruits. LUNGS: Clear to auscultation. CARDIOVASCULAR: Normal. ABDOMEN: There is no tenderness. Bowel sounds intact. There is no organomegaly. BACK: There is no tenderness to percussion. EXTREMITIES: There is tenderness over the dorsum of the left hand in the territory of the radial nerve. NEUROLOGIC: Mental status is normal. Cranial nerves II through XII are within normal limits. Pupils are equal, round, and reactive to light, and measured 3 mm. MUSCLE EXAMINATION: Muscle bulk and tone are normal. Strength 5/5 proximally and distally. Reflexes are +1 in the upper, +2 in the lower extremities with downgoing toes on testing for Babinski response. COORDINATION: Spsyyr-wz-zbti, bxnn-qv-gqnb testing, rapid alternating movements are normal. GAIT AND STATION: Normal based gait. Heel-toe tandem walk normal. Romberg is negative. SENSORY EXAMINATION: There is decreased pinprick and fine touch in the dorsum of the left hand and sensory part of the left radial nerve extends from the MTP joint and thumb up to the distal left wrist. Pinprick, fine touch, proprioception is normal everywhere else. IMPRESSION: 1. 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 2. Pancreatitis. PLAN: 1. Increase the patient's Neurontin. 2. Consider Cymbalta or nortriptyline in addition to the Neurontin. Dima Melgar MD DR: EPI JOB#: [id number] CC: CEASAR
[2019-07-05 04:00] VITALS: BP 131/86
[2019-07-05 06:30] LABS: BASOPHILS % (AUTO) 2.5 % (0.0-2.0); EOSINOPHILS % (AUTO) 13.6 % (0.0-3.0); HEMATOCRIT 48.1 % (42.0-52.0); HEMOGLOBIN 15.7 G/DL (14.2-18.0); LYMPHOCYTES % (AUTO) 45.7 % (20.0-45.0); MEAN CORPUSCULAR VOLUME 96 FL (80-99); MONOCYTES % (AUTO) 15.3 % (1.0-10.0); NEUTROPHILS % (AUTO) 22.9 % (45.0-75.0); PLATELET COUNT 225 K/UL (150-450); RED BLOOD COUNT 5.03 M/UL (4.70-6.10); RED CELL DISTRIBUTION WIDTH 11.1 % (11.6-14.8); WHITE BLOOD COUNT 3.8 K/UL (4.8-10.8)
[2019-07-05 07:02] LABS: ALANINE AMINOTRANSFERASE 72 U/L (12-78); ALBUMIN 4.2 G/DL (3.4-5.0); ALBUMIN/GLOBULIN RATIO 0.9 (1.0-2.7); ALKALINE PHOSPHATASE 83 U/L (46-116); AMYLASE 165 U/L (25-115); ANION GAP 8 mmol/L (5-15); ASPARTATE AMINO TRANSFERASE 35 U/L (15-37); BILIRUBIN,TOTAL 0.8 MG/DL (0.2-1.0); BLOOD UREA NITROGEN 10 mg/dL (7-18); CALCIUM 9.8 MG/DL (8.5-10.1); CARBON DIOXIDE 28 MMOL/L (21-32); CHLORIDE 105 MMOL/L (98-107); CREATININE 1.1 MG/DL (0.55-1.30); POTASSIUM 4.1 MMOL/L (3.5-5.1); SODIUM 141 MMOL/L (136-145)
--- NOTE | 2019-07-05 07:29 | NUR ---
HAND-OFF: Report given to ZEUS Huddleston.
[2019-07-05 08:00] VITALS: BP 145/88
--- NOTE | 2019-07-05 08:00 | NUR ---
NURSE NOTES: Received report from Luisito SCHULZ, pt a/a/o x4 seating in chair eating breakfast with no signs of distress or other issues at this time. pt is RA. Iv on the right AC gauge#20 heplock. pt stated that wants to home. RN will contact MD to request orders. call light within reach, bed in lowest position. side rales up x2. I will f/u as needed.
--- NOTE | 2019-07-05 08:51 | General Progress Note ---
Assessment/Plan Assessment/Plan: (1) Abdominal pain (2) Pancreatitis (3) Left hand pain Left radial sensory neuropathy (4) Cervical and Lumbar sprain Patient to be continued on Neurontin and [place]. D/w Dr. Martinez and he concurred. Subjective Date patient seen: Jul 05, 2019 Time patient seen: 07:30 - am Constitutional: Reports: no symptoms HEENT: Reports: no symptoms Cardiovascular: Reports: no symptoms Respiratory: Reports: no symptoms Gastrointestinal/Abdominal: Reports: no symptoms Genitourinary: Reports: no symptoms Neurologic/Psychiatric: Reports: tingling Endocrine: Reports: no symptoms Hematologic/Lymphatic: Reports: no symptoms Allergies: Coded Allergies: PENICILLINS (Unverified Allergy, Unknown, 06/24/14) Subjective Patient was seen by Neurologist and diagnosed with Left radial sensory neuropathy increased on the Neurontin to 200mg TID. He shows no signs of pain at this time. Objective Last 24 Hour Vital Signs Date Time Temp Pulse Resp B/P (MAP) Pulse Ox O2 Delivery O2 Flow Rate FiO2 07/05/19 04:00 97.6 65 20 131/86 (101) 99 07/04/19 21:00 Room Air 07/04/19 20:00 97.8 60 20 136/84 (101) 98 07/04/19 16:00 98.3 57 19 137/62 (87) 57 07/04/19 12:00 98.6 80 19 137/68 (91) 98 07/04/19 09:00 Room Air Intake and Output 07/04/19 07/05/19 19:00 07:00 Intake Total 360 ml 1000 ml Balance 360 ml 1000 ml Intake Oral 360 ml 1000 ml # Voids 3 2 # Bowel Movements 1 Laboratory Tests 07/05/19 05:50: White Blood Count 3.8L, Red Blood Count 5.03, Hemoglobin 15.7, Hematocrit 48.1, Mean Corpuscular Volume 96, Mean Corpuscular Hemoglobin 31.2H, Mean Corpuscular Hemoglobin Concent 32.6, Red Cell Distribution Width 11.1L, Platelet Count 225, Mean Platelet Volume 8.0, Neutrophils (%) (Auto) 22.9L, Lymphocytes (%) (Auto) 45.7H, Monocytes (%) (Auto) 15.3H, Eosinophils (%) (Auto) 13.6H, Basophils (%) ( Auto) 2.5H, Sodium Level 141, Potassium Level 4.1, Chloride Level 105, Carbon Dioxide Level 28, Anion Gap 8, Blood Urea Nitrogen 10, Creatinine 1.1, Estimat Glomerular Filtration Rate > 60, Glucose Level 92, Calcium Level 9.8, Total Bilirubin 0.8, Aspartate Amino Transf (AST/SGOT) 35, Alanine Aminotransferase ( ALT/SGPT) 72, Alkaline Phosphatase 83, Total Protein 8.7H, Albumin 4.2, Globulin 4.5, Albumin/Globulin Ratio 0.9L, Amylase Level 165H, Lipase 643H Height (Feet): 5 Height (Inches): 10.00 Weight (Pounds): 190 General Appearance: no apparent distress, alert EENT: PERRL/EOMI, normal ENT inspection Neck: non-tender, normal alignment Cardiovascular: normal rate, regular rhythm Respiratory/Chest: lungs clear, normal breath sounds Abdomen: non tender, soft Extremities: other - left UE in sling Edema: no edema noted Generalized Neurologic: alert, oriented x 3 Skin: warm/dry Cash Briones Jul 05, 2019 08:51
[2019-07-05] MEDS: Methocarbamol 750mg tab ORAL SCH (09:33)
[2019-07-05] MEDS: Docusate 100mg tablet ORAL SCH (09:33)
[2019-07-05] MEDS: Heparin 5000 units/ml inj SUBQ SCH (09:35)
--- NOTE | 2019-07-05 10:25 | NUR ---
NURSE NOTES: Called Dr. Hoskins to request d/c orders. per MD ok to go home and to f/u with GI in one week. I will f/u as needed.
--- NOTE | 2019-07-05 10:46 | GI Progress Note ---
Assessment/Plan Problems: (1) Pancreatitis, acute ICD Codes: K85.90 - Acute pancreatitis without necrosis or infection, unspecified SNOMED: 897317681 Qualifiers: Qualified Codes: K85.90 - Acute pancreatitis without necrosis or infection, unspecified (2) Abdominal pain ICD Codes: R10.9 - Unspecified abdominal pain SNOMED: 88273192 (3) Nausea ICD Codes: R11.0 - Nausea SNOMED: 359841136 Status: stable Status Narrative Discussed with Dr. Mobley. Assessment/Plan negative APCT Patient readmitted same day after being discharged The patient admitted to smoking marijuana prior okay for DC per GI standpoint, will need fu with primary to monitor lipase levels. Consider MRCP to evaluate for pancreatic stenosis if lipase levels are still elevated. patient instructed to avoid alcohol and MJ use. patient scheduled for MRI of spine as outpatient advance diet pain mgmt ppi zofran prn The patient was seen and examined at bedside and all new and available data was reviewed in the patients chart. I agree with the above findings, impression and plan. (Patient seen earlier today. Signature stamp does not reflect patient encounter time.). - Jose Mobley MD Subjective Gastrointestinal/Abdominal: Reports: no symptoms Subjective ready for discharge, wants to go AMA Objective Last 24 Hour Vital Signs Date Time Temp Pulse Resp B/P (MAP) Pulse Ox O2 Delivery O2 Flow Rate FiO2 07/05/19 09:00 Room Air 07/05/19 08:00 97.5 88 18 145/88 (107) 99 07/05/19 04:00 97.6 65 20 131/86 (101) 99 07/04/19 21:00 Room Air 07/04/19 20:00 97.8 60 20 136/84 (101) 98 07/04/19 16:00 98.3 57 19 137/62 (87) 57 07/04/19 12:00 98.6 80 19 137/68 (91) 98 Intake and Output 07/04/19 07/05/19 19:00 07:00 Intake Total 360 ml 1000 ml Balance 360 ml 1000 ml Intake Oral 360 ml 1000 ml # Voids 3 2 # Bowel Movements 1 Laboratory Tests Test 07/05/19 05:50 White Blood Count 3.8 K/UL (4.8-10.8) L Red Blood Count 5.03 M/UL (4.70-6.10) Hemoglobin 15.7 G/DL (14.2-18.0) Hematocrit 48.1 % (42.0-52.0) Mean Corpuscular Volume 96 FL (80-99) Mean Corpuscular Hemoglobin 31.2 PG (27.0-31.0) H Mean Corpuscular Hemoglobin Concent 32.6 G/DL (32.0-36.0) Red Cell Distribution Width 11.1 % (11.6-14.8) L Platelet Count 225 K/UL (150-450) Mean Platelet Volume 8.0 FL (6.5-10.1) Neutrophils (%) (Auto) 22.9 % (45.0-75.0) L Lymphocytes (%) (Auto) 45.7 % (20.0-45.0) H Monocytes (%) (Auto) 15.3 % (1.0-10.0) H Eosinophils (%) (Auto) 13.6 % (0.0-3.0) H Basophils (%) (Auto) 2.5 % (0.0-2.0) H Sodium Level 141 MMOL/L (136-145) Potassium Level 4.1 MMOL/L (3.5-5.1) Chloride Level 105 MMOL/L (98-107) Carbon Dioxide Level 28 MMOL/L (21-32) Anion Gap 8 mmol/L (5-15) Blood Urea Nitrogen 10 mg/dL (7-18) Creatinine 1.1 MG/DL (0.55-1.30) Estimat Glomerular Filtration Rate > 60 mL/min (>60) Glucose Level 92 MG/DL (74-106) Calcium Level 9.8 MG/DL (8.5-10.1) Total Bilirubin 0.8 MG/DL (0.2-1.0) Aspartate Amino Transf (AST/SGOT) 35 U/L (15-37) Alanine Aminotransferase (ALT/SGPT) 72 U/L (12-78) Alkaline Phosphatase 83 U/L (46-116) Total Protein 8.7 G/DL (6.4-8.2) H Albumin 4.2 G/DL (3.4-5.0) Globulin 4.5 g/dL Albumin/Globulin Ratio 0.9 (1.0-2.7) L Amylase Level 165 U/L (25-115) H Lipase 643 U/L (73-393) H Height (Feet): 5 Height (Inches): 10.00 Weight (Pounds): 190 General Appearance: WD/WN, no apparent distress, alert Cardiovascular: normal rate Respiratory/Chest: normal breath sounds, no respiratory distress Abdominal Exam: normal bowel sounds, non tender, soft Extremities: normal range of motion, non-tender Mairsa Coto NP Jul 05, 2019 10:46
--- NOTE | 2019-07-05 10:58 | NUR ---
NURSE NOTES: Received order to d/c home. belongings and discharge instructions given to patient and family. IV removed prior to d/c. pt is aware that needs to f/u with GI for f/u. pt verbalized understanding. pt is also aware that he needs to go to his PCP for a disability letter since he stated that he is unable to move his arm properly due to a venous puncture. pt left the floor with no signs of distress in company of his family. mother will provide transportation. I will f/u as needed.
--- NOTE | 2019-07-05 12:02 | NUR ---
CASE MANAGEMENT:REVIEW 44 YR OLD MALE TO ER CC; ABDOMINAL PAIN AND MULTIPLE EPISODES OF VOMITING SI: PANCREATITIS 97.7 88 18 145/68 96% ON RA K-3.3 CR+1.5 LIPASE+602 IS: IV ZOFRAN IV DILAUDID 1L NS BOLUS : TO MED/SURG IS: IVF@100/HR 07/04/19 SI: PANCREATITIS. ABDOMINAL PAIN. NAUSEA/VOMITING 98.3 57 19 137/62 98% ON RA AMYLASE+148 LIPASE+469 IS: NEURONTIN PO TID HEPARIN SQ QQ12 PEPCID PO BID ROBAXIN PO TID IV ZOFRAN Q6HRS PRN : MED/SURG STATUS 3 EAST 07/05/19 DISCHARGED HOME
--- NOTE | 2019-07-05 15:50 | Hematology/Onc Progress Note ---
Assessment/Plan Assessment/Plan Assessment/Plan # Prominent hypoechoic structure adjacent to the expected location of the pancreatic head measuring 2.9 x 1.8 --> obtain ct of the pancreas with ct protocol-> No abdominal mass identified. Unremarkable evaluation of the pancreas. --> hold off on tumor markers at this time --> gi recs have been reviewed # Hyperproteinemia can be related to dehydration --> obtain spep rule out monoclonal band --> if any further suspicion get upep # Leukopenia with decrease in wbc due to reactive proces --> likely due to underlying pancreatitis --> trend as needed, anc goal >1500 --> wbc 6-->5.7-->4.7-->4.5-->3.8 --> neupogen prn # Nausea/vomiting --> zofran on a prn basis # Back sprain --> reglan as needed # Left leg boi --> on bactrim r/o mrsa # MJ with urine tox+ # GERD -- on ppi # DVT ppx heparin sq The timing of this note does not necessarily reflect the time of the patient was seen. GREATLY APPRECIATE CONSULTATION. Subjective Allergies: Coded Allergies: PENICILLINS (Unverified Allergy, Unknown, 06/24/14) Subjective 07/02: was readmitted in the early am, had severe abdominal pain after having salad, labs show elev protein 07/05: awake and alert, in stable condition, dc planning Objective Objective Last 24 Hour Vital Signs Date Time Temp Pulse Resp B/P (MAP) Pulse Ox O2 Delivery O2 Flow Rate FiO2 07/05/19 09:00 Room Air 07/05/19 08:00 97.5 88 18 145/88 (107) 99 07/05/19 04:00 97.6 65 20 131/86 (101) 99 07/04/19 21:00 Room Air 07/04/19 20:00 97.8 60 20 136/84 (101) 98 07/04/19 16:00 98.3 57 19 137/62 (87) 57 07/04/19 12:00 98.6 80 19 137/68 (91) 98 07/04/19 09:00 Room Air 07/04/19 08:00 98.0 70 20 128/73 (91) 96 07/04/19 04:00 98.0 76 18 125/67 (86) 99 07/03/19 21:00 Room Air 07/03/19 20:00 97.9 71 18 123/88 (100) 100 07/03/19 16:00 98.4 78 22 132/90 (104) 100 Intake and Output 07/04/19 07/05/19 19:00 07:00 Intake Total 360 ml 1000 ml Balance 360 ml 1000 ml Intake Oral 360 ml 1000 ml # Voids 3 2 # Bowel Movements 1 Labs Test 07/03/19 05:35 07/04/19 08:30 07/05/19 05:50 White Blood Count 4.7 K/UL (4.8-10.8) 3.8 K/UL (4.8-10.8) Red Blood Count 4.68 M/UL (4.70-6.10) 5.03 M/UL (4.70-6.10) Hemoglobin 14.8 G/DL (14.2-18.0) 15.7 G/DL (14.2-18.0) Hematocrit 44.7 % (42.0-52.0) 48.1 % (42.0-52.0) Mean Corpuscular Volume 95 FL (80-99) 96 FL (80-99) Mean Corpuscular Hemoglobin 31.6 PG (27.0-31.0) 31.2 PG (27.0-31.0) Mean Corpuscular Hemoglobin Concent 33.1 G/DL (32.0-36.0) 32.6 G/DL (32.0-36.0) Red Cell Distribution Width 11.2 % (11.6-14.8) 11.1 % (11.6-14.8) Platelet Count 237 K/UL (150-450) 225 K/UL (150-450) Mean Platelet Volume 8.0 FL (6.5-10.1) 8.0 FL (6.5-10.1) Neutrophils (%) (Auto) 24.9 % (45.0-75.0) 22.9 % (45.0-75.0) Lymphocytes (%) (Auto) 44.7 % (20.0-45.0) 45.7 % (20.0-45.0) Monocytes (%) (Auto) 15.3 % (1.0-10.0) 15.3 % (1.0-10.0) Eosinophils (%) (Auto) 13.3 % (0.0-3.0) 13.6 % (0.0-3.0) Basophils (%) (Auto) 2.0 % (0.0-2.0) 2.5 % (0.0-2.0) Sodium Level 140 MMOL/L (136-145) 141 MMOL/L (136-145) Potassium Level 4.4 MMOL/L (3.5-5.1) 4.1 MMOL/L (3.5-5.1) Chloride Level 107 MMOL/L (98-107) 105 MMOL/L (98-107) Carbon Dioxide Level 27 MMOL/L (21-32) 28 MMOL/L (21-32) Anion Gap 6 mmol/L (5-15) 8 mmol/L (5-15) Blood Urea Nitrogen 6 mg/dL (7-18) 10 mg/dL (7-18) Creatinine 1.2 MG/DL (0.55-1.30) 1.1 MG/DL (0.55-1.30) Estimat Glomerular Filtration Rate > 60 mL/min (>60) > 60 mL/min (>60) Glucose Level 101 MG/DL (74-106) 92 MG/DL (74-106) Calcium Level 9.3 MG/DL (8.5-10.1) 9.8 MG/DL (8.5-10.1) Lipase 398 U/L (73-393) 469 U/L (73-393) 643 U/L (73-393) Amylase Level 148 U/L (25-115) 165 U/L (25-115) Total Bilirubin 0.8 MG/DL (0.2-1.0) Aspartate Amino Transf (AST/SGOT) 35 U/L (15-37) Alanine Aminotransferase (ALT/SGPT) 72 U/L (12-78) Alkaline Phosphatase 83 U/L (46-116) Total Protein 8.7 G/DL (6.4-8.2) Albumin 4.2 G/DL (3.4-5.0) Globulin 4.5 g/dL Albumin/Globulin Ratio 0.9 (1.0-2.7) Height (Feet): 5 Height (Inches): 10.00 Weight (Pounds): 190 Objective Gen: nad, + muscular throughout Pulm: decreased breath sounds CV: RRR Abd: soft nt nd Ext: no cce Fortino Han MD Jul 05, 2019 15:50
--- NOTE | 2019-07-06 13:11 | Discharge Summary ---
Discharge Summary Discharge Summary _ DATE OF ADMISSION: 07/02/2019 DATE OF DISCHARGE: 07/05/2019 DISCHARGED BY: Dr Smith REASON FOR ADMISSION: 44 years old male with past medical history of pancreatitis, who just discharged from the hospital , presented with chief complaint of abdominal pain and vomiting. Patient reported several episodes of nonbloody nonbilious vomiting. Patient also reported left upper quadrant pain. No diarrhea. No radiation of pain . Pain described as 9 out of 10 , similar to prior presentation. Upon evaluation vital signs were stable. Laboratory work-up revealed no leukocytosis , stable hemoglobin and hematocrit. Sodium 134 , potassium 3.3 . BUN 10 , creatinine 1.5 . Lipase 62. AST, ALT, bilirubin - all stable Glucose 106. Patient subsequently admitted for further management. CONSULTANTS: neurologist Dr Melgar GI specialist Dr. Mobley pain specialist Dr. Martinez outsewer/oncologist Dr. Han [facility] COURSE: Patient admitted to medical surgical floor. Patient initially was kept n.p.o. and started on the IV hydration. GI specialist followed. Patient admitted to smoking marijuana prior to presentation to ED. Diet was started and slowly advanced as tolerated. Antiemetic were on board as needed. Patient started on PPI. Pain management was addressed as per pain specialist recommendation. GI specialist recommended consider MRCP for evaluation of pancreatic stenosis if lipase level will not trend down. Lipase initially trended down and then started to trend up again. Patient was able to tolerate diet. Patient remained afebrile , no leukocytosis. Neurologist seen and evaluated patient . Patient had a left radial sensory neuropathy . Patient started on Neurontin , and dose was subsequently uptitrated . Pain was controlled DVT and GI prophylaxis provided. Supportive care provided. Antiemetic provided as needed. [employer] /oncologist followed. Patient with evidence of leukopenia , likely reactive process due to underlying pancreatitis. Patient also noted to have hyperproteinemia , which can be related to dehydration as per outsewer. Serum protein electrophoresis was ordered to rule out monoclonal band. At the time of this dictation serum protein electrophoresis results still pending. Renal parameters and electrolytes were closely monitored. Electrolytes corrected as needed, and nephrotoxins were avoided. With IV hydration , prior to discharge -creatinine from 1.5 down to 1.1. Patient clinically stabilized and was ready for discharge FINAL DIAGNOSES: Acute pancreatitis Abdominal pain Left radial sensory neuropathy Hyperproteinemia , possibly related to dehydration Leukopenia ,possibly reactive Marijuana use GERD DISCHARGE MEDICATIONS: See Medication Reconciliation list. DISCHARGE INSTRUCTIONS: Patient was discharged home . Follow up with primary care provider in one week. I have been assigned to dictate discharge summary for this account. I was not involved in the patient's management. Franca Reyes NP Jul 06, 2019 13:11
== END 2019-07-05 10:57 | disposition home or self-care (01) | DRG 282 ==
LOC: EDBD 04:10 → EMR 04:29 → 3E 05:08 → EDBEDREQ 06:06 → 3E 07:13
DX: K85.90 Acute pancreatitis without necrosis or infection, unspecified (principal); E86.0 Dehydration; K21.9 Gastro-esophageal reflux disease without esophagitis; N39.0 Urinary tract infection, site not specified; Z88.0 Allergy status to penicillin; G62.89 Other specified polyneuropathies; S13.4XXA Sprain of ligaments of cervical spine, initial encounter; S33.5XXA Sprain of ligaments of lumbar spine, initial encounter; V89.2XXA Person injured in unspecified motor-vehicle accident, traffic, initial encounter; R20.2 Paresthesia of skin
CPT/HCPCS: 36415; 80048; 80053; 82150; 83690; 84165; 85025; 87081; 96361; 96374; 96375; 99285; J2405